=== PATIENT | female | born 1935 | race Caucasian/White ===

== ENCOUNTER 2017-01-15 19:37 | Inpatient (IN) | payer MEDICARE ==
[~2017-01-15] VITALS: Ht 160 cm; Wt 53.6 kg
[~2017-01-15 19:37] MED LIST: ACET325T9 PO; ALBU1.25 NEB; AMOX1TAB61 PO; ATOR40TA59 PO; CHOL10003 PO; DIAZ10TA PO; DICY10CA3 PO; DONE10TA61 PO; FEXO180T81 PO; FLUT16SP2 NS; GUAI100L12 PO; GUAI473L15 PO; LEVO137T3 PO; LEVO50TA5 PO; LEXAPRO10 MG PO; LORA10TA3 PO; MEMA10TA PO; MEMA28CA PO; MIRT45TA3 PO; OMEG500C PO; PANT40TA3 PO; POLY17PO5 PO; POTA20TA12 PO; PROP20TA PO; SENN-6 PO; SENN8.8S4 PO; SUCR1TAB35 PO; TROL177. TP; WARF1TAB74 PO; WARF2.5T83 PO; [UNRECOGNIZED DRUG - CODE] PO
[2017-01-15 20:51] LABS: BASO # 0.1 x10^3/uL (0.0-0.2); BASO % 1 % (0-3); EOS # 0.1 x10^3/uL (0.0-0.7); EOS % 2 % (0-3); HEMATOCRIT 34.2 % (36.0-47.0); HEMOGLOBIN 12.1 g/dL (12.0-15.5); LYMPH # 1.4 x10^3/uL (1.0-4.8); LYMPH % 21 % (24-48); MEAN CORPUSCULAR HEMOGLOBIN 33 pg (25-35); MEAN CORPUSCULAR HGB CONC 35 g/dL (31-37); MEAN CORPUSCULAR VOLUME 92 fL (79-100); MONO # 0.5 x10^3/uL (0.0-1.1); MONO % 8 % (0-9); NEUT # 4.6 x10^3uL (1.8-7.7); NEUT % 68 % (31-73); PLATELET COUNT 214 x10^3/uL (140-400); RED BLOOD COUNT 3.71 x10^6/uL (3.50-5.40); RED CELL DISTRIBUTION WIDTH 15.7 % (11.5-14.5); WHITE BLOOD COUNT 6.7 x10^3/uL (4.0-11.0)
[2017-01-15 21:01] LABS: ALBUMIN 3.1 g/dL (3.4-5.0); ALBUMIN/GLOBULIN RATIO 0.9 (1.0-1.7); CALCIUM 8.6 mg/dL (8.5-10.1); CREATININE 1.3 mg/dL (0.6-1.0); GFR 39.1; MAGNESIUM 1.8 mg/dL (1.8-2.4); TOTAL BILIRUBIN 0.6 mg/dL (0.2-1.0); TOTAL PROTEIN 6.6 g/dL (6.4-8.2)
[2017-01-15 21:03] LABS: POTASSIUM 2.3 mmol/L (3.5-5.1)
--- NOTE | 2017-01-15 21:03 | RAD ---
PQRS Compliance Statement: One or more of the following individualized dose reduction techniques were utilized for this examination: 1. Automated exposure control 2. Adjustment of the mA and/or kV according to patient size 3. Use of iterative reconstruction technique CT HEAD, MAXILLOFACIAL, AND CERVICAL SPINE WITHOUT CONTRAST History: AMS/TRAUMA, BRUISING ABOVE RIGHT EYE Comparison: None. Procedure: Axial images are obtained of the head from the skull base through the vertex without IV contrast. Noncontrast helical CT of the cervical spine was performed. Axial, sagittal, and coronal reconstructions were obtained. Helical CT imaging of the facial bones is performed without IV contrast. Findings: The ventricles and sulci are prominent, consistent with age-related cerebral atrophy. There is moderate periventricular white matter hypoattenuation. This is a nonspecific finding but is commonly due to chronic small vessel ischemic disease in a patient of this age. No mass-effect, midline shift, hemorrhage or obvious acute infarction is identified. Basilar cisterns are patent. Bone windows demonstrate no significant calvarial abnormality. There is right frontal scalp hematoma, mild to moderate. No acute facial bone fracture. Patient is edentulous. Mucosal thickening right maxillary sinus is moderate. Mastoid air cells are well aerated. There is mild motion artifact in the cervical spine degrading image quality. There is no evidence of acute fracture or acute malalignment of the cervical spine. The vertebral body height and alignment are maintained. There is disc space narrowing and degenerative endplate spurring. The facet joints are intact, mildly hypertrophic. Left carotid bulb calcification. Right lung apex is clear. Left lung not imaged. IMPRESSION: 1. No acute intracranial abnormality. Senescent changes. 2. There is mild to moderate right frontal scalp hematoma. 3. Limited exam due to motion artifact. No acute fracture of the cervical spine. 4. No acute facial bone fracture. Electronically signed by: Joe Bashir MD (01/15/2017 9:00 PM) [facility]
[2017-01-15] MEDS ORDERED: MENT118G TP (21:05)
[2017-01-15] MEDS ORDERED: LEXAPRO20 MG PO (21:05)
[2017-01-15] MEDS ORDERED: LISI-338 PO (21:05)
[2017-01-15] MEDS ORDERED: ATRO10DR SL (21:05)
[2017-01-15] MEDS ORDERED: MORP20SO PO (21:05)
[2017-01-15] MEDS ORDERED: LORA2ORA8 PO (21:05)
[2017-01-15] MEDS ORDERED: POLY15DR27 OU (21:05)
[2017-01-15] MEDS ORDERED: CARB15DR98 OU (21:05)
[2017-01-15] MEDS ORDERED: BUTA1TAB PO (21:05)
[2017-01-15] MEDS ORDERED: LEVO112T4 PO (21:05)
[2017-01-15] MEDS ORDERED: HALO0.5T PO ×2 (21:05)
[2017-01-15] MEDS ORDERED: ASPI325T8 PO (21:05)
[2017-01-15] MEDS ORDERED: POTASSIUM CHLORIDE 20 MEQ/15 ML ORAL LIQUID. PO ONE (22:30)
[2017-01-15] MEDS ORDERED: POTASSIUM CL 40MEQ IN D5W 1,000 ML IV ONE (22:30)
[2017-01-15] MEDS ORDERED: POTASSIUM CHLORIDE 20 MEQ/15 ML ORAL LIQUID. ONE (22:34)
[2017-01-15 22:54] LABS: BILIRUBIN,URINE NEG (NEG); CLARITY,URINE CLEAR; COLOR,URINE STRAW; GLUCOSE,URINE NEG (NEG); NITRITE,URINE NEG (NEG); UROBILINOGEN,URINE 1 mg/dL (0.2 mg/dL)
[2017-01-15 22:55] LABS: BACTERIA,URINE FEW /HPF (0-FEW); BARBITURATES NEG (NEG); BENZODIAZEPINES POS (NEG); CANNABINOIDS NEG (NEG); COCAINE NEG (NEG); METHADONE NEG (NEG); OPIATES POS (NEG); PHENCYCLIDINE NEG (NEG); SQUAMOUS EPITHELIAL CELL,UR MOD /LPF
[2017-01-15 22:56] LABS: AMPHETAMINE/METHAMPHETAMINE NEG (NEG)
[2017-01-15 22:58] LABS: HYALINE CASTS, URINE MOD /HPF
[2017-01-15] MEDS ORDERED: ACETAMINOPHEN 325 MG TABLET PO PRN (23:15)
[2017-01-15] MEDS ORDERED: MAGNESIUM SULFATE 1GM 100 ML IV ONE ×2 (23:20→23:30)
--- NOTE | 2017-01-15 23:40 | ED.ADGEN ---
Past History Past Medical History: A-Fib, CHF, High Cholesterol, Hypothyroid Past Surgical History: No Surgical History Alcohol Use: None Drug Use: None Adult General HPI HPI Patient is an 81-year-old woman, history of dementia, agitation, hypertension, hypothyroidism, atrial fibrillation, CHF, who presents to the emergency department via EMS her nursing facility with report of increased agitation, for medical screening for admission to the [facility] unit. Patient noted to have abrasions on her forehead and around her right eye, per report from nursing staff patient had been agitated and combative. Patient is previously receiving Haldol, currently, patient is at baseline mental status per report, she is alert, and awake, but not oriented, speaks in full sentences and is moving all extremities, but cannot be oriented. Patient is denying all complaints. She is cooperative with staff at this time. No anticoagulation per medication list. Review of Systems Review of Systems Constitutional: Denies fever or chills [] Eyes: Denies change in visual acuity, redness, or eye pain [] HENT: Denies nasal congestion or sore throat [] Respiratory: Denies cough or shortness of breath [] Cardiovascular: No additional information not addressed in HPI [] GI: Denies abdominal pain, nausea, vomiting, bloody stools or diarrhea [] : Denies dysuria or hematuria [] Musculoskeletal: Denies back pain or joint pain [] Integument: Denies rash or skin lesions [] Neurologic: Denies headache, focal weakness or sensory changes [] Endocrine: Denies polyuria or polydipsia [] Patient denies all complaints, but isn't limited historian due to severe dementia. She is at baseline mental status per report from nursing facility. Current Medications Current Medications Current Medications Medications (Trade) Dose Ordered Sig/Anthony Start Time Stop Time Status Last Admin Dose Admin Acetaminophen (Tylenol) 650 mg PRN Q4HRS PRN 01/15/17 23:15 01/16/17 23:14 Magnesium Sulfate/ Dextrose 100 ml @ As Directed STK-MED ONCE 01/15/17 23:20 01/15/17 23:21 DC Potassium Chloride/Dextrose 1,000 ml @ 75 mls/hr 1X ONCE 01/15/17 22:30 01/16/17 11:49 01/15/17 22:30 75 MLS/HR Potassium Chloride (KCl Oral Soln) 20 meq STK-MED ONCE 01/15/17 22:34 01/15/17 22:35 DC Allergies Allergies Allergies Coded Allergies Type Severity Reaction Last Updated Verified No Known Drug Allergies 11/27/13 No Physical Exam Physical Exam Constitutional: Well developed, well nourished, no acute distress, non-toxic appearance. [] HENT: Normocephalic, patient with contusions noted over the right forehead, ecchymosis surrounding the right orbit, no lacerations, patient is edentulous, no difficulty with bite test, no hemotympanum, no septal hematoma, bilateral external ears normal, oropharynx moist, no oral exudates, nose normal. [] Eyes: PERRLA, EOMI, conjunctiva normal, no discharge. Ecchymosis surrounding right stated, superficial.[] Neck: Normal range of motion, no tenderness, supple, no stridor. [] Cardiovascular:Heart rate regular rhythm, no murmur, S1, S2, no rubs or gallops. [] Lungs & Thorax: Bilateral breath sounds clear to auscultation, no wheezing, rhonchi, rales. No chest wall crepitus or tenderness.] Abdomen: Bowel sounds normal, soft, no tenderness, no masses, no pulsatile masses. [] Skin: Warm, dry, no erythema, no rash. [] Back: No tenderness, no CVA tenderness. [] Extremities: No tenderness, no cyanosis, no clubbing, ROM intact, no edema. Patient with contusions noted on both forearms, but no bony point tenderness or crepitus, patient moving extremities without difficulty and without discomfort, [] Neurologic: Alert and oriented X 3, normal motor function, normal sensory function, no focal deficits noted. [] Psychologic: Affect normal, judgement normal, mood normal. [] Current Patient Data Vital Signs Vital Signs Date Time Temp Pulse Resp B/P (MAP) Pulse Ox O2 Delivery O2 Flow Rate FiO2 01/15/17 22:46 97 22 145/62 (89) 98 Room Air 01/15/17 20:00 98.0 Lab Results Laboratory Tests Test 01/15/17 20:30 01/15/17 20:38 01/15/17 22:15 Prothrombin Time 11.4 SEC (9.4-11.4) Prothrombin Time INR 1.1 (0.9-1.1) PTT 25 SEC (23-33) White Blood Count 6.7 x10^3/uL (4.0-11.0) Red Blood Count 3.71 x10^6/uL (3.50-5.40) Hemoglobin 12.1 g/dL (12.0-15.5) Hematocrit 34.2 % (36.0-47.0) L Mean Corpuscular Volume 92 fL (79-100) Mean Corpuscular Hemoglobin 33 pg (25-35) Mean Corpuscular Hemoglobin Concent 35 g/dL (31-37) Red Cell Distribution Width 15.7 % (11.5-14.5) H Platelet Count 214 x10^3/uL (140-400) Neutrophils (%) (Auto) 68 % (31-73) Lymphocytes (%) (Auto) 21 % (24-48) L Monocytes (%) (Auto) 8 % (0-9) Eosinophils (%) (Auto) 2 % (0-3) Basophils (%) (Auto) 1 % (0-3) Neutrophils # (Auto) 4.6 x10^3uL (1.8-7.7) Lymphocytes # (Auto) 1.4 x10^3/uL (1.0-4.8) Monocytes # (Auto) 0.5 x10^3/uL (0.0-1.1) Eosinophils # (Auto) 0.1 x10^3/uL (0.0-0.7) Basophils # (Auto) 0.1 x10^3/uL (0.0-0.2) Sodium Level 146 mmol/L (136-145) H Potassium Level 2.3 mmol/L (3.5-5.1) *L Chloride Level 106 mmol/L (98-107) Carbon Dioxide Level 33 mmol/L (21-32) H Anion Gap 7 (6-14) Blood Urea Nitrogen 12 mg/dL (7-20) Creatinine 1.3 mg/dL (0.6-1.0) H Estimated GFR (Cockcroft-Gault) 39.1 BUN/Creatinine Ratio 9 (6-20) Glucose Level 82 mg/dL (70-99) Calcium Level 8.6 mg/dL (8.5-10.1) Magnesium Level 1.8 mg/dL (1.8-2.4) Total Bilirubin 0.6 mg/dL (0.2-1.0) Aspartate Amino Transferase (AST) 25 U/L (15-37) Alanine Aminotransferase (ALT) 19 U/L (14-59) Alkaline Phosphatase 132 U/L (46-116) H Total Protein 6.6 g/dL (6.4-8.2) Albumin 3.1 g/dL (3.4-5.0) L Albumin/Globulin Ratio 0.9 (1.0-1.7) L Urine Collection Type U cath Urine Color Straw Urine Clarity Clear Urine pH 5.5 Urine Specific [place] 1.025 Urine Protein 30 mg/dl (NEG-TRACE) Urine Glucose (UA) Neg mg/dL (NEG) Urine Ketones (Stick) 15 mg/dL (NEG) Urine Blood Neg (NEG) Urine Nitrite Neg (NEG) Urine Bilirubin Neg (NEG) Urine Urobilinogen Dipstick 1 mg/dL (0.2 mg/dL) Urine Leukocyte Esterase Neg (NEG) Urine RBC 1-2 /HPF (0-2) Urine WBC 1-4 /HPF (0-4) Urine Squamous Epithelial Cells Mod /LPF Urine Bacteria Few /HPF (0-FEW) Urine Hyaline Casts Mod /HPF Urine Mucus Mod /LPF Urine Opiates Screen Pos (NEG) Urine Methadone Screen Neg (NEG) Urine Barbiturates Neg (NEG) Urine Phencyclidine Screen Neg (NEG) Urine Amphetamine/Methamphetamine Neg (NEG) Urine Benzodiazepines Screen Pos (NEG) Urine Cocaine Screen Neg (NEG) Urine Cannabinoids Screen Neg (NEG) Urine Ethyl Alcohol Neg (NEG) EKG EKG EC: ECG is suboptimal, multiple attempts to obtain this ECG, noted to be in sinus rhythm with a heart rate of 69 beats/minute, significant baseline artifact is noted, QTc is prolonged at 535, [place] 198, QRS of 86, contour abnormality is noted in the inferior leads with Q waves noted, but no significant ST elevations or depressions identified, abnormal ECG, does not meet STEMI criteria, limited interpretation secondary to artifact and patient compliance. As interpreted by me.[] Radiology/Procedures Radiology/Procedures [][address] [address] IMAGING REPORT Signed PATIENT: TINY STARR ACCOUNT: [id number] : 1935 LOCATION: ER AGE: 81 SEX: F EXAM STATUS: REG ER ORD. PHYSICIAN: BRIAN KAY DO REASON: AMS/trauma PROCEDURE: CT CERVICAL SPINE WO CONTRAST PQRS Compliance Statement: One or more of the following individualized dose reduction techniques were utilized for this examination: 1. Automated exposure control 2. Adjustment of the mA and/or kV according to patient size 3. Use of iterative reconstruction technique CT HEAD, MAXILLOFACIAL, AND CERVICAL SPINE WITHOUT CONTRAST History: AMS/TRAUMA, BRUISING ABOVE RIGHT EYE Comparison: None. Procedure: Axial images are obtained of the head from the skull base through the vertex without IV contrast. Noncontrast helical CT of the cervical spine was performed. Axial, sagittal, and coronal reconstructions were obtained. Helical CT imaging of the facial bones is performed without IV contrast. Findings: The ventricles and sulci are prominent, consistent with age-related cerebral atrophy. There is moderate periventricular white matter hypoattenuation. This is a nonspecific finding but is commonly due to chronic small vessel ischemic disease in a patient of this age. No mass-effect, midline shift, hemorrhage or obvious acute infarction is identified. Basilar cisterns are patent. Bone windows demonstrate no significant calvarial abnormality. There is right frontal scalp hematoma, mild to moderate. No acute facial bone fracture. Patient is edentulous. Mucosal thickening right maxillary sinus is moderate. Mastoid air cells are well aerated. There is mild motion artifact in the cervical spine degrading image quality. There is no evidence of acute fracture or acute malalignment of the cervical spine. The vertebral body height and alignment are maintained. There is disc space narrowing and degenerative endplate spurring. The facet joints are intact, mildly hypertrophic. Left carotid bulb calcification. Right lung apex is clear. Left lung not imaged. IMPRESSION: 1. No acute intracranial abnormality. Senescent changes. 2. There is mild to moderate right frontal scalp hematoma. 3. Limited exam due to motion artifact. No acute fracture of the cervical spine. 4. No acute facial bone fracture. Electronically signed by: Joe Bashir MD (01/15/2017 9:00 PM) [facility] DICTATED AND SIGNED BY: JOE BASHIR MD DATE: 01/15/172051 CC: ANNA ANDRADE JR, MD; BRIAN KAY DO ~ Course & Med Decision Making Course & Med Decision Making Pertinent Labs and Imaging studies reviewed. (See chart for details) Due to patient's contusions and evidence of head injury, CT of the head and neck was obtained, did not reveal evidence of intercranial or bony abnormalities. Laboratory studies obtained, including a straight catheter urine. Patient noted to have potassium of 2.3, is on lisinopril, no other diuretics or other concerning medications identified where the review of medication list. Magnesium of 1.8. ECG reveals a prolonged QTc at 535, and Q waves in the inferior leads, no other maladies identified, limited secondary to patient compliance with examination. Patient did become agitated during straight catheterization, otherwise was cooperative with the ED staff. Patient initiated on 40 mg of oral potassium, and 40 mEq IV potassium at 75 an hour in a liter of normal saline. Evidence of mild dehydration. I did discuss findings as above with Dr. Pacheco, hospitalist on-call, patient was accepted to her service as a full admission to the medical telemetry floor, for continued repletion of potassium, with addition of 1 g magnesium, laboratory studies to be repeated in the morning, with plan for patient to be transferred to the [facility] when she is medically cleared. Transportation was arranged via EMS for transport to [facility]. Patient remained calm, cooperative, and comfortable during her ED course with vital signs within normal limits. Final Impression Final Impression [] Problems: Dragon Disclaimer Dragon Disclaimer This electronic medical record was generated, in whole or in part, using a voice recognition dictation system. Departure: Impression: Primary Impression: Senile dementia with delusional features Additional Impression: Hypokalemia Disposition: ADMITTED INPATIENT Admitting Physician: Melonie Pacheco Condition: IMPROVED BRIAN KAY DO Jan 15, 2017 23:40
--- NOTE | 2017-01-15 23:50 | NUR ---
ADMISSION: The patient, TINY STARR, 81 y/o, F admitted by GEOFFREY KELLY DO, was given written information regarding hospital policies, unit procedures and contact persons. Pt admitted to room 109 via [facility], accompanied by [facility] and nursing super. Pt assisted x3 to transfer from [facility] to bed. Pt has dementia and has difficulty following directions. A/O self only, highly confused. Pt presented to ED from [facility] for medical clearance to be admitted to [facility] for recent behaviors of: kicking nurse, throwing things, aggression, hallucinations. Potassium found found to be critically low at 2.3 and pt was admitted to medical floor for replenishment. PMH and home meds obtained from [facility] records as pt is a poor historian. Pt calm and cooperative with cares this evening. Toileted x1 assist, unsteady gait noted. Pt has difficulty utilizing walker. Pt returned to bed, alarm set. Pt noted to have significant goose egg and bruising to right eye from recent fall. Per NH, pt has had 8 falls recently. POC discussed, pt unable to V/U. Will reinforce. Call light within reach. Valuables were checked and logged. Left in room with patient.
--- NOTE | 2017-01-16 00:30 | EKG ---
[address] [address] Test Date: 2017-01-15 Test Time: 22:07:28 Pat Name: TINY STARR Department: Room: [facility] A Gender: F Leg Man: JANICE : 1935 Requested By: BRIAN KAY Order Number: [id number] Reading MD: Navin Alvarez MD Measurements Intervals Mack Rate: 69 P: 78 NJ: 198 QRS: -15 QRSD: 86 T: 28 QT: 498 QTc: 535 Interpretive Statements SINUS RHYTHM BASELINE ARTIFACT Electronically Signed On 01-19-2017 13:33:20 CDT by Navin Alvarez MD
[2017-01-16 02:42] VITALS: BP 174/87
[2017-01-16 05:31] VITALS: BP 148/87
[2017-01-16 07:29] LABS: BASO # 0.1 x10^3/uL (0.0-0.2); BASO % 2 % (0-3); EOS # 0.2 x10^3/uL (0.0-0.7); EOS % 4 % (0-3); HEMATOCRIT 36.3 % (36.0-47.0); LYMPH # 1.5 x10^3/uL (1.0-4.8); LYMPH % 26 % (24-48); MEAN CORPUSCULAR HEMOGLOBIN 32 pg (25-35); MEAN CORPUSCULAR HGB CONC 33 g/dL (31-37); MEAN CORPUSCULAR VOLUME 96 fL (79-100); MONO # 0.6 x10^3/uL (0.0-1.1); MONO % 10 % (0-9); NEUT # 3.3 x10^3uL (1.8-7.7); NEUT % 59 % (31-73); PLATELET COUNT 167 x10^3/uL (140-400); RED BLOOD COUNT 3.79 x10^6/uL (3.50-5.40); RED CELL DISTRIBUTION WIDTH 16.4 % (11.5-14.5); WHITE BLOOD COUNT 5.7 x10^3/uL (4.0-11.0)
[2017-01-16 07:33] LABS: CALCIUM 8.1 mg/dL (8.5-10.1)
[2017-01-16 07:39] LABS: POTASSIUM 2.9 mmol/L (3.5-5.1)
[2017-01-16] MEDS ORDERED: POTASSIUM CHLORIDE 20 MEQ TABLET.ER. PO ONE ×2 (08:30→12:08)
[2017-01-16 10:48] VITALS: BP 140/53
[2017-01-16] MEDS ORDERED: guaiFENesin 300 MG/15 ML LIQUID PO PRN (12:15)
[2017-01-16] MEDS ORDERED: ACETAMINOPHEN 325 MG TABLET PO PRN (12:15)
[2017-01-16] MEDS ORDERED: HALOPERIDOL 0.5 MG TABLET PO PRN (12:15)
[2017-01-16] MEDS ORDERED: SENNOSIDES/DOCUSATE 8.6/50MG TABLET. PO SCH (13:00)
[2017-01-16] MEDS ORDERED: POLYETHYLENE GLYCOL 3350 17 GM PACKET. PO SCH (13:00)
[2017-01-16] MEDS ORDERED: CITALOPRAM 20 MG TABLET. PO SCH (13:00)
[2017-01-16] MEDS ORDERED: FLUTICASONE 50MCG/NASAL SPRAY 16GM BOTTLE. NS SCH (13:00)
[2017-01-16] MEDS ORDERED: LISINOPRIL 5 MG TABLET. PO SCH (13:00)
[2017-01-16] MEDS ORDERED: METHYL SALICYLATE/MENTHOL TOPICAL OINTMENT 29GM TUBE. TP PRN (13:00)
[2017-01-16] MEDS ORDERED: POLYVINYL ALCOHOL 1.4% OPHTH SOLUTION 15ML BOTTLE. OU SCH (13:00)
[2017-01-16] MEDS ORDERED: ASPIRIN 325 MG TABLET PO SCH (13:00)
[2017-01-16] MEDS ORDERED: LORazepam INTENSOL 2 MG/ML BOTTLE PO PRN (13:00)
[2017-01-16] MEDS ORDERED: PANTOPRAZOLE 40 MG TABLET. PO SCH (13:00)
[2017-01-16] MEDS ORDERED: HALOPERIDOL 0.5 MG TABLET PO SCH (13:00)
[2017-01-16] MEDS ORDERED: MORPHINE SULFATE 20 MG/ML CONC SOLUTION. SL PRN (13:15)
--- NOTE | 2017-01-16 13:24 | HP ---
ADMIT DATE: 01/15/2017 REASON FOR ADMISSION: Hypokalemia. HISTORY OF PRESENT ILLNESS: This is an 81-year-old female who came from home and was slated to be admitted up to the [facility] for increasingly aggressiveness, kicking nurses, throwing things and hallucinating. She had been discontinued from hospice to be admitted to the [facility]. However, on the workup in the Emergency Room, her potassium was only 2.3 and she was somewhat dehydrated and so was admitted to the medical floor. ALLERGIES: None. MEDICATIONS: Reviewed and the patient is on multiple hospice medications which were given quite frequently without much help. PAST MEDICAL HISTORY: Recently, the patient has had multiple falls including hitting her head, chronic diastolic heart failure, has a history of urinary tract infection, treated with Cipro, hypertension, dementia, AFib, macular degeneration, GERD. The patient's last fall was 01/09/2017 when she hit her head. She was found on the floor on 10:30 but it was not felt that she had fallen. SOCIAL HISTORY: She resides at . Her daughter is her power of employment law attorney. She is a former smoker, unknown alcohol. REVIEW OF SYSTEMS: The patient has trouble getting out what she wants having trouble communicating this morning. She does not have any particular complaints I can get in a lucid conversation. PHYSICAL EXAMINATION: VITAL SIGNS: Blood pressure 140/53, temperature 97.4, pulse 85, respirations 20, pulse ox is 94% on room air. Height 63 inches, weight 118.12 pounds. GENERAL: Frail, elderly 81-year-old in no acute distress, is sitting calmly in bed, notable bruising on her face including a large "egg" on her forehead. HEENT: Her eyes were clear. Nose was patent. Throat was clear. NECK: Supple. LUNGS: Clear. CARDIOVASCULAR: Regular rhythm and rate. ABDOMEN: Soft, nontender. EXTREMITIES: Without edema. MUSCULOSKELETAL: Very unsteady on her feet. MENTAL STATE: Confused. Cranial nerves, unable to assess. LABORATORY DATA: CBC is normal. Chemistry: Initial potassium 2.3, now 2.9 this morning after potassium replacement. Albumin is 3.1, magnesium was 1.8. Urinalysis is a contaminated specimen, but specific gravity is 1.025. Drug screen is positive for opiates and benzodiazepines consistent with her hospice medications. ASSESSMENT: 1. Severe hypokalemia. 2. Dehydration, now improved with IV fluids. 3. Chronic diastolic heart failure. 4. Recent urinary tract infection. 5. Multiple falls with a forehead contusion. 6. Hypertension, medications were discontinued at the assisted living. 7. Atrial fibrillation. 8. Macular degeneration. 9. 9. Moderate protein-calorie malnutrition. PLAN: Correct her potassium. Dehydration has been corrected and then transfer upstairs. Would be nutritional supplements. GEOFFREY KELLY DO DR: ROSE/doug JOB#: [id number] / [id number]
[2017-01-16] MEDS ORDERED: DICYCLOMINE HCL 10 MG CAPSULE PO SCH (14:00)
[2017-01-16 15:16] VITALS: BP 139/87
[2017-01-16] MEDS ORDERED: CARBOXYMETHYLCELLULOSE SODIUM OU SCH (21:00)
[2017-01-17] MEDS ORDERED: LEVOTHYROXINE 112 MCG TABLET PO SCH (07:00)
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
== END 2017-01-16 17:28 | DRG 641 ==
LOC: ER 19:37 → 1 SOUTH 22:31
PROVIDERS: ADMIT Family Medicine; ATTEND Family Medicine
DX: E87.6 Hypokalemia (principal); E86.0 Dehydration; E44.0 Moderate protein-calorie malnutrition; I48.91 Unspecified atrial fibrillation; I11.0 Hypertensive heart disease with heart failure; F03.90 Unspecified dementia, unspecified severity, without behavioral disturbance, psychotic disturbance, mood disturbance, and anxiety; I50.32 Chronic diastolic (congestive) heart failure; E03.9 Hypothyroidism, unspecified; W18.39XA Other fall on same level, initial encounter; F41.9 Anxiety disorder, unspecified; Z68.20 Body mass index [BMI] 20.0-20.9, adult; H35.30 Unspecified macular degeneration; K21.9 Gastro-esophageal reflux disease without esophagitis; R29.6 Repeated falls; S00.03XA Contusion of scalp, initial encounter; Y93.89 Activity, other specified; Y92.89 Other specified places as the place of occurrence of the external cause; Y99.8 Other external cause status; Z79.82 Long term (current) use of aspirin; Z79.899 Other long term (current) drug therapy; Z87.440 Personal history of urinary (tract) infections; Z87.891 Personal history of nicotine dependence
CPT/HCPCS: 36415; 70450; 70486; 72125; 80048; 80053; 80307; 81001; 82306; 82607; 83540; 83550; 83735; 84132; 84443; 85025; 85610; 85730; 87641; 93005; 96365; 96368; J3475; P9612; 99285-25; G0479

== ENCOUNTER 2017-01-16 17:04 | Inpatient (IN) | payer MEDICARE ==
[~2017-01-16] VITALS: Ht 160 cm; Wt 51.7 kg
[~2017-01-16 17:04] MED LIST changes: +ASPI325T8 PO; +ATRO10DR SL; +BUTA1TAB PO; +CARB15DR98 OU; +HALO0.5T PO; +LEVO112T4 PO; +LEXAPRO20 MG PO; +LISI-338 PO; +LORA2ORA8 PO; +MENT118G TP; +MORP20SO PO; +POLY15DR27 OU
[2017-01-16] MEDS ORDERED: MAGNESIUM HYDROXIDE 2,400 MG/30 ML ORAL.SUSP. PO PRN (17:15)
[2017-01-16] MEDS ORDERED: MAG HYDROX/AL HYDROX/SIMETH 30 ML ORAL.SUSP PO PRN (17:15)
[2017-01-16] MEDS ORDERED: ACETAMINOPHEN 325 MG TABLET PO PRN (17:15)
[2017-01-16] MEDS ORDERED: METHYL SALICYLATE/MENTHOL TOPICAL OINTMENT 29GM TUBE. TP PRN ×2 (17:15→18:00)
[2017-01-16] MEDS ORDERED: NACL 0.9% SL PRN (17:30)
[2017-01-16] MEDS ORDERED: ATROPINE SULFATE SL PRN (17:30)
[2017-01-16] MEDS ORDERED: NON FORMULARY ITEM (Menthol (Biofreeze) 1 APP) TP PRN (17:30)
[2017-01-16] MEDS ORDERED: guaiFENesin 300 MG/15 ML LIQUID PO PRN (17:30)
[2017-01-16] MEDS ORDERED: MORPHINE SULFATE 10 MG/5 ML ORAL SOLUTION. PO PRN (18:00)
[2017-01-16] MEDS: POLYVINYL ALCOHOL 1.4% OPHTH SOLUTION 15ML BOTTLE. OU SCH (20:37)
[2017-01-16] MEDS: diazePAM 2 MG TABLET PO SCH ×3 (20:37→22:31)
[2017-01-16] MEDS: HALOPERIDOL 0.5 MG TABLET PO SCH ×3 (20:38→22:32)
[2017-01-16] MEDS: DICYCLOMINE HCL 10 MG CAPSULE PO SCH ×3 (20:38→22:31)
[2017-01-16] MEDS: SENNOSIDES/DOCUSATE 8.6/50MG TABLET. PO SCH ×3 (20:38→22:31)
--- NOTE | 2017-01-16 20:47 | PDOC ---
Exam Yossi Demential Exam: Yossi Note: Please also refer to the separate dictated note~for this date of service dictated separately.~Patient seen individually. Discussed the patient with Nursing staff reviewed the chart.~Reviewed interim history and current functioning. Reviewed vital signs,~Labs/ Radiology~and current medications noted below. Continue current treatment with the changes noted in the dictated addendum note Assessment: I&O Intake and Output 01/17/17 07:00 Intake Total 0 ml Balance 0 ml Intake Oral 0 ml Labs: Laboratory Tests Test 01/16/17 15:25 Magnesium Level 1.9 mg/dL (1.8-2.4) Current Medications: Meds: Current Medications Acetaminophen (Tylenol) 650 mg PRN Q6HRS PRN PO PAIN / TEMP; Start 01/16/17 at 17:15; Status UNV Multi-Ingredient Ointment (Analgesic [place]) 1 karime PRN QID PRN TP MUSCLE PAIN; Start 01/16/17 at 17:15; Status Cancel Al Hydroxide/Mg Hydroxide (Mylanta Plus Xs) 15 ml PRN AFTMEALHC PRN PO DYSPEPSIA; Start 01/16/17 at 17:15 Magnesium Hydroxide (Milk Of Magnesia) 2,400 mg PRN QHS PRN PO CONSTIPATION; Start 01/16/17 at 17:15 Acetaminophen (Tylenol) 650 mg PRN Q6HRS PRN PO PAIN / TEMP; Start 01/16/17 at 17:30 Aspirin (Lana Aspirin) 325 mg DAILY PO ; Start 01/17/17 at 09:00 Dicyclomine HCl (Bentyl) 10 mg TID PO Last administered on 01/16/17t 20:38; Start 01/16/17 at 21:00 Fluticasone Propionate (Flonase) 1 spray DAILY NS ; Start 01/17/17 at 09:00 Guaifenesin (Robitussin) 100 mg PRN Q4HRS PRN PO COUGH; Start 01/16/17 at 17:30 Levothyroxine Sodium (Synthroid) 112 mcg DAILY07 PO ; Start 01/17/17 at 07:00 Lisinopril (Prinivil) 5 mg DAILY PO ; Start 01/17/17 at 09:00 Pantoprazole Sodium (Protonix) 40 mg DAILY PO ; Start 01/17/17 at 09:00 Polyethylene Glycol (miraLAX) 17 gm DAILY PO ; Start 01/17/17 at 09:00 Artificial Tears (Artificial Tears) 1 drop QID OU ; Start 01/16/17 at 21:00 Senna/Docusate Sodium (Senna Plus) 1 tab BID PO Last administered on 01/16/17 20:38; Start 01/16/17 at 21:00 Sucralfate (Carafate) 1 gm BIDBFRMEAL PO ; Start 01/17/17 at 07:30 Non-Formulary Medication 3 drop PRN Q1HR PRN SL SECRETIONS; Start 01/16/17 at 17:30; Status UNV Non-Formulary Medication 1 drop BID OU ; Start 01/16/17 at 21:00; Status UNV Non-Formulary Medication 1 karime PRN QID PRN TP MUSCLE PAIN; Start 01/16/17 at 17 :30; Status UNV Morphine Sulfate (Morphine Oral Solution) 5 mg PRN Q4HRS PRN PO MODERATE PAIN; Start 01/16/17 at 18:00 Haloperidol (Haldol) 0.25 mg BID PO Last administered on 01/16/17 20:38; Start 01/16/17 at 21:00 Haloperidol (Haldol) 0.5 mg PRN Q6HRS PRN PO ANXIETY / AGITATION; Start at 17:45 Lorazepam (Ativan Intensol) 1 mg PRN Q4HRS PRN PO ANXIETY / AGITATION; Start 01/16/17 at 17:45 Diazepam (Valium) 10 mg HS PO Last administered on 01/16/17 20:37; Start 01/16 at 21:00 Escitalopram Oxalate (Lexapro) 20 mg DAILY PO ; Start 01/17/17 at 09:00 Multi-Ingredient Ointment (Analgesic [place]) 1 karime PRN QID PRN TP MUSCLE PAIN; Start 01/16/17 at 18:00 Active Scripts Active Reported Morphine Sulfate 20 Mg/5 Ml Solution 5 Mg PO PRN Q4HRS PRN Haloperidol 0.5 Mg Tablet 0.25 Mg PO BID Haloperidol 0.5 Mg Tablet 0.5 Mg PO PRN Q6HRS PRN Lisinopril 5 Mg Tablet 5 Mg PO DAILY Lorazepam Intensol (Lorazepam) 2 Mg/1 Ml Oral.conc 1 Mg PO PRN Q4HRS PRN Atropine 0.01%-Ns Eye Drops (Atropine Sulfate in 0.9% NaCl) 10 Ml Drops 3 Drop SL PRN Q1HR PRN Biofreeze (Menthol) 118 Ml Gel..ml. 1 Karime TP PRN QID PRN Artificial Tears (Polyvinyl Alcohol) 15 Ml Drops 1 Drop OU QID Refresh Tears (Carboxymethylcellulose Sodium) 15 Ml Drops 1 Drop OU BID Aspirin 325 Mg Tablet 325 Mg PO DAILY Levothyroxine Sodium 112 Mcg Tablet 112 Mcg PO DAILY07 Lexapro (Escitalopram Oxalate) 20 Mg Tablet 20 Mg PO DAILY Guaifenesin 100 Mg/5 Ml Liquid 100 Mg PO PRN Q4HRS PRN Protonix (Pantoprazole Sodium) 40 Mg Tablet.dr 40 Mg PO DAILY Senna S Tablet (Sennosides/Docusate Sodium) 1 Each Tablet 1 Tab PO BID Tylenol (Acetaminophen) 325 Mg Tablet 650 Mg PO PRN Q6HRS PRN Dicyclomine Hcl 10 Mg Capsule 10 Mg PO TID Valium (Diazepam) 10 Mg Tablet 10 Mg PO QHS Carafate (Sucralfate) 1 Gm Tablet 1 Gm PO BID Flonase (Fluticasone Propionate) 16 Gm [place].susp 1 Spr NS DAILY Miralax (Polyethylene Glycol 3350) 17 Gm Powd.pack 17 Gm PO DAILY Diagnosis: Problems: (1) Dementia, vascular, with delusions (2) Altered mental state (3) Anxiety disorder (4) Impulse control disorder (5) Alzheimer's dementia ROSMERY CRUZ MD Jan 16, 2017 20:46
[2017-01-16] MEDS ORDERED: CARBOXYMETHYLCELLULOSE SODIUM OU SCH (21:00)
[2017-01-16 22:31] VITALS: BP 181/64
[2017-01-16 23:35] VITALS: BP 150/88
[2017-01-17] MEDS: LORazepam INTENSOL 2 MG/ML BOTTLE PO PRN (00:41)
[2017-01-17] MEDS: LEVOTHYROXINE 112 MCG TABLET PO SCH (05:45)
[2017-01-17 06:11] VITALS: BP 162/94
[2017-01-17 06:28] VITALS: BP 145/73
[2017-01-17] MEDS: HALOPERIDOL 0.5 MG TABLET PO SCH ×2 (08:59→20:30)
[2017-01-17] MEDS: DICYCLOMINE HCL 10 MG CAPSULE PO SCH ×3 (08:59→20:32)
[2017-01-17] MEDS: SENNOSIDES/DOCUSATE 8.6/50MG TABLET. PO SCH ×2 (08:59→20:30)
[2017-01-17] MEDS ORDERED: ESCITALOPRAM 20 MG TABLET. PO SCH (09:00)
[2017-01-17] MEDS: PANTOPRAZOLE 40 MG TABLET. PO SCH (09:05)
[2017-01-17] MEDS: FLUTICASONE 50MCG/NASAL SPRAY 16GM BOTTLE. NS SCH (09:05)
[2017-01-17] MEDS: LISINOPRIL 5 MG TABLET. PO SCH (09:05)
[2017-01-17] MEDS: POLYVINYL ALCOHOL 1.4% OPHTH SOLUTION 15ML BOTTLE. OU SCH ×4 (09:05→20:37)
[2017-01-17] MEDS: POLYETHYLENE GLYCOL 3350 17 GM PACKET. PO SCH (09:05)
[2017-01-17] MEDS: SUCRALFATE 1 GM TABLET. PO SCH ×2 (09:06→16:24)
[2017-01-17] MEDS: ASPIRIN 325 MG TABLET PO SCH (09:06)
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
[2017-01-17 14:08] LABS: THYROID STIM HORMONE (TSH) 0.989 uIU/mL (0.358-3.740)
[2017-01-17 16:20] VITALS: BP 145/87
--- NOTE | 2017-01-17 18:42 | HP ---
ADMIT DATE: 01/16/2017 HISTORY OF PRESENT ILLNESS: The patient is an 81-year-old female, who has had a brief stay on 1 for hypokalemia and then was admitted [facility] to [facility]. She had a complete history and physical of which there are no changes. Please refer to previous history and physical from 2 days ago and discharge summary from 2 days ago. GEOFFREY KELLY DO DR: ROSE/doug JOB#: [id number] / [id number]
[2017-01-17 19:08] LABS: T3 TOTAL 94 ng/dL (71-180); THYROXINE 11.1 ug/dL (4.5-12.0)
[2017-01-17] MEDS: diazePAM 5 MG TABLET PO SCH (20:35)
--- NOTE | 2017-01-17 20:43 | PDOC ---
Exam Yossi Demential Exam: Yossi Note: Please also refer to the separate dictated note~for this date of service dictated separately.~Patient seen individually. Discussed the patient with Nursing staff reviewed the chart.~Reviewed interim history and current functioning. Reviewed vital signs,~Labs/ Radiology~and current medications noted below. Continue current treatment with the changes noted in the dictated addendum note Assessment: Vital Signs: Vital Signs Date Time Temp Pulse Resp B/P (MAP) Pulse Ox O2 Delivery O2 Flow Rate FiO2 01/17/17 16:20 98.2 69 18 145/87 (106) 92 Room Air I&O Intake and Output 01/18/17 07:00 Intake Total 960 ml Balance 960 ml Intake Oral 960 ml Current Medications: Meds: Current Medications Acetaminophen (Tylenol) 650 mg PRN Q6HRS PRN PO PAIN / TEMP; Start 01/16/17 at 17:15; Status UNV Multi-Ingredient Ointment (Analgesic [place]) 1 karime PRN QID PRN TP MUSCLE PAIN; Start 01/16/17 at 17:15; Status Cancel Al Hydroxide/Mg Hydroxide (Mylanta Plus Xs) 15 ml PRN AFTMEALHC PRN PO DYSPEPSIA; Start 01/16/17 at 17:15 Magnesium Hydroxide (Milk Of Magnesia) 2,400 mg PRN QHS PRN PO CONSTIPATION; Start 01/16/17 at 17:15 Acetaminophen (Tylenol) 650 mg PRN Q6HRS PRN PO PAIN / TEMP; Start 01/16/17 at 17:30 Aspirin (Lana Aspirin) 325 mg DAILY PO Last administered on 01/17/17 09:06; Start 01/17/17 at 09:00 Dicyclomine HCl (Bentyl) 10 mg TID PO Last administered on 01/17/17 20:32; Start 01/16/17 at 21:00 Fluticasone Propionate (Flonase) 1 spray DAILY NS Last administered on 09:05; Start 01/17/17 at 09:00 Guaifenesin (Robitussin) 100 mg PRN Q4HRS PRN PO COUGH; Start 01/16/17 at 17:30 Levothyroxine Sodium (Synthroid) 112 mcg DAILY07 PO Last administered on 05:45; Start 01/17/17 at 07:00 Lisinopril (Prinivil) 5 mg DAILY PO Last administered on 01/17/17 09:05; Start 01/17/17 at 09:00 Pantoprazole Sodium (Protonix) 40 mg DAILY PO Last administered on 01/17/17 09 :05; Start 01/17/17 at 09:00 Polyethylene Glycol (miraLAX) 17 gm DAILY PO Last administered on 01/17/17 09: 05; Start 01/17/17 at 09:00 Artificial Tears (Artificial Tears) 1 drop QID OU Last administered on 20:37; Start 01/16/17 at 21:00 Senna/Docusate Sodium (Senna Plus) 1 tab BID PO Last administered on 01/17/17 20:30; Start 01/16/17 at 21:00 Sucralfate (Carafate) 1 gm BIDBFRMEAL PO Last administered on 01/17/17 16:24; Start 01/17/17 at 07:30 Non-Formulary Medication 3 drop PRN Q1HR PRN SL SECRETIONS; Start 01/16/17 at 17:30; Status UNV Non-Formulary Medication 1 drop BID OU ; Start 01/16/17 at 21:00; Status UNV Non-Formulary Medication 1 karime PRN QID PRN TP MUSCLE PAIN; Start 01/16/17 at 17 :30; Status UNV Morphine Sulfate (Morphine Oral Solution) 5 mg PRN Q4HRS PRN PO MODERATE PAIN; Start 01/16/17 at 18:00 Haloperidol (Haldol) 0.25 mg BID PO Last administered on 01/17/17 20:30; Start 01/16/17 at 21:00 Haloperidol (Haldol) 0.5 mg PRN Q6HRS PRN PO ANXIETY / AGITATION; Start at 17:45 Lorazepam (Ativan Intensol) 1 mg PRN Q4HRS PRN PO ANXIETY / AGITATION Last administered on 01/17/17 00:41; Start 01/16/17 at 17:45 Diazepam (Valium) 10 mg HS PO Last administered on 01/16/17 22:31; Start 01/16 at 21:00; Stop 01/17/17 at 16:24; Status DC Escitalopram Oxalate (Lexapro) 20 mg DAILY PO Last administered on 01/17/17 09 :06; Start 01/17/17 at 09:00; Stop 01/17/17 at 19:09; Status DC Multi-Ingredient Ointment (Analgesic [place]) 1 karime PRN QID PRN TP MUSCLE PAIN; Start 01/16/17 at 18:00 Diazepam (Valium) 10 mg QHS PO Last administered on 01/17/17 20:35; Start 01/17/17 at 21:00 Sertraline HCl (Zoloft) 50 mg DAILY PO ; Start 01/18/17 at 09:00 Active Scripts Active Reported Morphine Sulfate 20 Mg/5 Ml Solution 5 Mg PO PRN Q4HRS PRN Haloperidol 0.5 Mg Tablet 0.25 Mg PO BID Haloperidol 0.5 Mg Tablet 0.5 Mg PO PRN Q6HRS PRN Lisinopril 5 Mg Tablet 5 Mg PO DAILY Lorazepam Intensol (Lorazepam) 2 Mg/1 Ml Oral.conc 1 Mg PO PRN Q4HRS PRN Atropine 0.01%-Ns Eye Drops (Atropine Sulfate in 0.9% NaCl) 10 Ml Drops 3 Drop SL PRN Q1HR PRN Biofreeze (Menthol) 118 Ml Gel..ml. 1 Karime TP PRN QID PRN Artificial Tears (Polyvinyl Alcohol) 15 Ml Drops 1 Drop OU QID Refresh Tears (Carboxymethylcellulose Sodium) 15 Ml Drops 1 Drop OU BID Aspirin 325 Mg Tablet 325 Mg PO DAILY Levothyroxine Sodium 112 Mcg Tablet 112 Mcg PO DAILY07 Lexapro (Escitalopram Oxalate) 20 Mg Tablet 20 Mg PO DAILY Guaifenesin 100 Mg/5 Ml Liquid 100 Mg PO PRN Q4HRS PRN Protonix (Pantoprazole Sodium) 40 Mg Tablet.dr 40 Mg PO DAILY Senna S Tablet (Sennosides/Docusate Sodium) 1 Each Tablet 1 Tab PO BID Tylenol (Acetaminophen) 325 Mg Tablet 650 Mg PO PRN Q6HRS PRN Dicyclomine Hcl 10 Mg Capsule 10 Mg PO TID Valium (Diazepam) 10 Mg Tablet 10 Mg PO QHS Carafate (Sucralfate) 1 Gm Tablet 1 Gm PO BID Flonase (Fluticasone Propionate) 16 Gm [place].susp 1 Spr NS DAILY Miralax (Polyethylene Glycol 3350) 17 Gm Powd.pack 17 Gm PO DAILY Diagnosis: Problems: (1) Dementia, vascular, with delusions (2) Altered mental state (3) Anxiety disorder (4) Impulse control disorder (5) Alzheimer's dementia ROSMERY CRUZ MD Jan 17, 2017 20:42
[2017-01-18 06:09] VITALS: BP 142/71
[2017-01-18] MEDS: LEVOTHYROXINE 112 MCG TABLET PO SCH (06:24)
--- NOTE | 2017-01-18 10:59 | EKG ---
[address] [address] Test Date: 2017-01-18 Test Time: 10:55:12 Pat Name: TINY STARR Department: Room: [address] [place] [address] Gender: F Felt Hat Pouncing Operator Hand: : 1935 Requested By: ROSMERY CRUZ Order Number: [id number] Reading MD: Navin Alvarez MD Measurements Intervals [place] Rate: 68 P: OK: QRS: -14 QRSD: 80 T: 4 QT: 358 QTc: 385 Interpretive Statements SINUS RHYTHM PVC Electronically Signed On 01-19-2017 13:54:40 CDT by Navin Alvarez MD
[2017-01-18] MEDS: ASPIRIN 325 MG TABLET PO SCH (11:08)
[2017-01-18] MEDS: LISINOPRIL 5 MG TABLET. PO SCH (11:08)
[2017-01-18] MEDS: SUCRALFATE 1 GM TABLET. PO SCH ×2 (11:08→15:13)
[2017-01-18] MEDS: SENNOSIDES/DOCUSATE 8.6/50MG TABLET. PO SCH ×2 (11:08→19:21)
[2017-01-18] MEDS: DICYCLOMINE HCL 10 MG CAPSULE PO SCH ×3 (11:09→19:21)
[2017-01-18] MEDS: PANTOPRAZOLE 40 MG TABLET. PO SCH (11:09)
[2017-01-18] MEDS: POLYETHYLENE GLYCOL 3350 17 GM PACKET. PO SCH (11:09)
[2017-01-18] MEDS: HALOPERIDOL 0.5 MG TABLET PO SCH ×2 (11:09→19:21)
[2017-01-18] MEDS: FLUTICASONE 50MCG/NASAL SPRAY 16GM BOTTLE. NS SCH (11:14)
[2017-01-18] MEDS: SERTRALINE 50 MG TABLET. PO SCH (11:14)
[2017-01-18] MEDS: POLYVINYL ALCOHOL 1.4% OPHTH SOLUTION 15ML BOTTLE. OU SCH ×4 (11:14→19:24)
[2017-01-18 16:07] VITALS: BP 167/80
[2017-01-18] MEDS: diazePAM 5 MG TABLET PO SCH (19:21)
--- NOTE | 2017-01-18 20:52 | PDOC ---
Exam Yossi Demential Exam: Yossi Note: Please also refer to the separate dictated note~for this date of service dictated separately.~Patient seen individually. Discussed the patient with Nursing staff reviewed the chart.~Reviewed interim history and current functioning. Reviewed vital signs,~Labs/ Radiology~and current medications noted below. Continue current treatment with the changes noted in the dictated addendum note Assessment: Vital Signs: Vital Signs Date Time Temp Pulse Resp B/P (MAP) Pulse Ox O2 Delivery O2 Flow Rate FiO2 01/18/17 16:07 97.5 71 18 167/80 (109) 97 01/17/17 16:20 Room Air I&O Intake and Output 01/19/17 07:00 Intake Total 600 ml Balance 600 ml Intake Oral 600 ml # Bowel Movements 1 Current Medications: Meds: Current Medications Acetaminophen (Tylenol) 650 mg PRN Q6HRS PRN PO PAIN / TEMP; Start 01/16/17 at 17:15; Status UNV Multi-Ingredient Ointment (Analgesic [place]) 1 karime PRN QID PRN TP MUSCLE PAIN; Start 01/16/17 at 17:15; Status Cancel Al Hydroxide/Mg Hydroxide (Mylanta Plus Xs) 15 ml PRN AFTMEALHC PRN PO DYSPEPSIA; Start 01/16/17 at 17:15 Magnesium Hydroxide (Milk Of Magnesia) 2,400 mg PRN QHS PRN PO CONSTIPATION; Start 01/16/17 at 17:15 Acetaminophen (Tylenol) 650 mg PRN Q6HRS PRN PO PAIN / TEMP; Start 01/16/17 at 17:30 Aspirin (Lana Aspirin) 325 mg DAILY PO Last administered on 01/18/17 11:08; Start 01/17/17 at 09:00 Dicyclomine HCl (Bentyl) 10 mg TID PO Last administered on 01/18/17 19:21; Start 01/16/17 at 21:00 Fluticasone Propionate (Flonase) 1 spray DAILY NS Last administered on 11:14; Start 01/17/17 at 09:00 Guaifenesin (Robitussin) 100 mg PRN Q4HRS PRN PO COUGH; Start 01/16/17 at 17:30 Levothyroxine Sodium (Synthroid) 112 mcg DAILY07 PO Last administered on 06:24; Start 01/17/17 at 07:00 Lisinopril (Prinivil) 5 mg DAILY PO Last administered on 01/18/17 11:08; Start 01/17/17 at 09:00 Pantoprazole Sodium (Protonix) 40 mg DAILY PO Last administered on 01/18/17 11 :09; Start 01/17/17 at 09:00 Polyethylene Glycol (miraLAX) 17 gm DAILY PO Last administered on 01/18/17 11: 09; Start 01/17/17 at 09:00 Artificial Tears (Artificial Tears) 1 drop QID OU Last administered on 19:24; Start 01/16/17 at 21:00 Senna/Docusate Sodium (Senna Plus) 1 tab BID PO Last administered on 01/18/17 19:21; Start 01/16/17 at 21:00 Sucralfate (Carafate) 1 gm BIDBFRMEAL PO Last administered on 01/18/17 15:13; Start 01/17/17 at 07:30 Non-Formulary Medication 3 drop PRN Q1HR PRN SL SECRETIONS; Start 01/16/17 at 17:30; Status UNV Non-Formulary Medication 1 drop BID OU ; Start 01/16/17 at 21:00; Status UNV Non-Formulary Medication 1 karime PRN QID PRN TP MUSCLE PAIN; Start 01/16/17 at 17 :30; Status UNV Morphine Sulfate (Morphine Oral Solution) 5 mg PRN Q4HRS PRN PO MODERATE PAIN; Start 01/16/17 at 18:00 Haloperidol (Haldol) 0.25 mg BID PO Last administered on 01/18/17 19:21; Start 01/16/17 at 21:00 Haloperidol (Haldol) 0.5 mg PRN Q6HRS PRN PO ANXIETY / AGITATION; Start at 17:45 Lorazepam (Ativan Intensol) 1 mg PRN Q4HRS PRN PO ANXIETY / AGITATION Last administered on 01/17/17 00:41; Start 01/16/17 at 17:45 Diazepam (Valium) 10 mg HS PO Last administered on 01/16/17 22:31; Start 01/16 at 21:00; Stop 01/17/17 at 16:24; Status DC Escitalopram Oxalate (Lexapro) 20 mg DAILY PO Last administered on 01/17/17 09 :06; Start 01/17/17 at 09:00; Stop 01/17/17 at 19:09; Status DC Multi-Ingredient Ointment (Analgesic [place]) 1 karime PRN QID PRN TP MUSCLE PAIN; Start 01/16/17 at 18:00 Diazepam (Valium) 10 mg QHS PO Last administered on 01/18/17 19:21; Start 01/17/17 at 21:00 Sertraline HCl (Zoloft) 50 mg DAILY PO Last administered on 01/18/17 11:14; Start 01/18/17 at 09:00 Buspirone HCl (Buspar) 5 mg BID92 PO ; Start 01/19/17 at 09:00 Active Scripts Active Reported Morphine Sulfate 20 Mg/5 Ml Solution 5 Mg PO PRN Q4HRS PRN Haloperidol 0.5 Mg Tablet 0.25 Mg PO BID Haloperidol 0.5 Mg Tablet 0.5 Mg PO PRN Q6HRS PRN Lisinopril 5 Mg Tablet 5 Mg PO DAILY Lorazepam Intensol (Lorazepam) 2 Mg/1 Ml Oral.conc 1 Mg PO PRN Q4HRS PRN Atropine 0.01%-Ns Eye Drops (Atropine Sulfate in 0.9% NaCl) 10 Ml Drops 3 Drop SL PRN Q1HR PRN Biofreeze (Menthol) 118 Ml Gel..ml. 1 Karime TP PRN QID PRN Artificial Tears (Polyvinyl Alcohol) 15 Ml Drops 1 Drop OU QID Refresh Tears (Carboxymethylcellulose Sodium) 15 Ml Drops 1 Drop OU BID Aspirin 325 Mg Tablet 325 Mg PO DAILY Levothyroxine Sodium 112 Mcg Tablet 112 Mcg PO DAILY07 Lexapro (Escitalopram Oxalate) 20 Mg Tablet 20 Mg PO DAILY Guaifenesin 100 Mg/5 Ml Liquid 100 Mg PO PRN Q4HRS PRN Protonix (Pantoprazole Sodium) 40 Mg Tablet.dr 40 Mg PO DAILY Senna S Tablet (Sennosides/Docusate Sodium) 1 Each Tablet 1 Tab PO BID Tylenol (Acetaminophen) 325 Mg Tablet 650 Mg PO PRN Q6HRS PRN Dicyclomine Hcl 10 Mg Capsule 10 Mg PO TID Valium (Diazepam) 10 Mg Tablet 10 Mg PO QHS Carafate (Sucralfate) 1 Gm Tablet 1 Gm PO BID Flonase (Fluticasone Propionate) 16 Gm [place].susp 1 Spr NS DAILY Miralax (Polyethylene Glycol 3350) 17 Gm Powd.pack 17 Gm PO DAILY Diagnosis: Problems: (1) Altered mental state (2) Anxiety disorder (3) Impulse control disorder (4) Dementia, vascular, with depression (5) Alzheimer's dementia (6) Dementia, vascular, with delusions (7) Dementia, vascular, with 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
[2017-01-19] MEDS: LEVOTHYROXINE 112 MCG TABLET PO SCH (05:49)
[2017-01-19 05:58] VITALS: BP 147/80
[2017-01-19] MEDS: SERTRALINE 50 MG TABLET. PO SCH (06:37)
[2017-01-19] MEDS: POLYETHYLENE GLYCOL 3350 17 GM PACKET. PO SCH (06:37)
[2017-01-19] MEDS: SUCRALFATE 1 GM TABLET. PO SCH (06:38)
[2017-01-19] MEDS: SENNOSIDES/DOCUSATE 8.6/50MG TABLET. PO SCH ×2 (06:38→20:13)
[2017-01-19] MEDS: PANTOPRAZOLE 40 MG TABLET. PO SCH (06:38)
[2017-01-19] MEDS: DICYCLOMINE HCL 10 MG CAPSULE PO SCH ×3 (06:38→20:13)
[2017-01-19] MEDS: HALOPERIDOL 0.5 MG TABLET PO SCH ×2 (06:38→20:14)
[2017-01-19] MEDS: ASPIRIN 325 MG TABLET PO SCH (06:38)
[2017-01-19] MEDS: LISINOPRIL 5 MG TABLET. PO SCH (06:38)
[2017-01-19 07:52] LABS: BASO # 0.1 x10^3/uL (0.0-0.2); BASO % 1 % (0-3); EOS # 0.2 x10^3/uL (0.0-0.7); EOS % 3 % (0-3); HEMATOCRIT 38.1 % (36.0-47.0); HEMOGLOBIN 12.7 g/dL (12.0-15.5); LYMPH # 1.4 x10^3/uL (1.0-4.8); LYMPH % 20 % (24-48); MEAN CORPUSCULAR HEMOGLOBIN 31 pg (25-35); MEAN CORPUSCULAR HGB CONC 33 g/dL (31-37); MEAN CORPUSCULAR VOLUME 93 fL (79-100); MONO # 0.5 x10^3/uL (0.0-1.1); MONO % 8 % (0-9); NEUT # 4.5 x10^3uL (1.8-7.7); NEUT % 68 % (31-73); PLATELET COUNT 222 x10^3/uL (140-400); RED BLOOD COUNT 4.09 x10^6/uL (3.50-5.40); RED CELL DISTRIBUTION WIDTH 16.1 % (11.5-14.5); WHITE BLOOD COUNT 6.7 x10^3/uL (4.0-11.0)
--- NOTE | 2017-01-19 07:53 | PN ---
DATE: 01/17/2017 This late entry 01/17/2017 covers elements not covered in my initial note of 01/17/2017. SUBJECTIVE: I met with the patient evening of 01/17/2017. The patient remains confused, has a large bump on her forehead. She was restless, somewhat impulsive. The bruises are from recurrent falls. CT head shows no acute changes. We will check an EKG given the fact that she has been on Celexa 40 mg a day. REVIEW OF SYSTEMS: No CV, , pulmonary, eye, ENT system symptoms on review. Reliability poor. MENTAL STATUS EXAM: Oriented to herself. Insight, judgment, recent and remote memory, attention, concentration, fund of knowledge poor, consistent with her diagnosis mentioned in my initial note. PLAN: Check EKG, change Celexa to Zoloft 50 mg a day, start Seroquel 12.5 mg p.o. at bedtime to help with anxiety, delusions, mood lability and to augment the Zoloft. Reviewed drug interactions. Risk/benefit ratio favors no further change for now. ROSMERY CRUZ MD DR: RICHARD/doug JOB#: [id number] / [id number]
[2017-01-19 08:09] LABS: ALBUMIN 3.1 g/dL (3.4-5.0); ALBUMIN/GLOBULIN RATIO 0.8 (1.0-1.7); CALCIUM 8.9 mg/dL (8.5-10.1); MAGNESIUM 1.8 mg/dL (1.8-2.4); POTASSIUM 3.2 mmol/L (3.5-5.1); TOTAL BILIRUBIN 0.5 mg/dL (0.2-1.0); TOTAL PROTEIN 6.9 g/dL (6.4-8.2)
[2017-01-19] MEDS: busPIRone 5 MG TABLET. PO SCH ×2 (09:34→14:40)
[2017-01-19] MEDS: FLUTICASONE 50MCG/NASAL SPRAY 16GM BOTTLE. NS SCH (09:34)
[2017-01-19] MEDS: POLYVINYL ALCOHOL 1.4% OPHTH SOLUTION 15ML BOTTLE. OU SCH ×4 (09:34→20:13)
[2017-01-19] MEDS: POTASSIUM CHLORIDE 20 MEQ TABLET.ER. PO SCH (14:40)
[2017-01-19 16:11] VITALS: BP 148/89
[2017-01-19] MEDS: diazePAM 5 MG TABLET PO SCH (20:13)
--- NOTE | 2017-01-19 22:16 | PN ---
DATE: 01/18/2017 This late entry 01/18/2017 covers elements not covered in my initial note of 01/18/2017. SUBJECTIVE: Met with the patient evening of 01/18/2017. The patient slept in morning of 01/18/2017. EKG shows QT corrected 385 millisecond, takes her medications crushed, slept 6-1/2 hours previous evening, remains confused. No CV, , pulmonary, eye, ENT system symptoms on review. MENTAL STATUS EXAM: Oriented to herself. Insight, judgment, recent and remote memory, attention, concentration, fund of knowledge poor, consistent with her diagnosis mentioned in my initial note. PLAN: Start Buspar 5 mg twice a day 9:00 a.m. and 2 p.m. Continue Zoloft 50 mg a day, Haldol 0.25 mg b.i.d. plus p.r.n., Ativan p.r.n. Reviewed drug interactions, risk/benefit ratio favors no further change. ROSMERY CRUZ MD DR: RICHARD/doug JOB#: [id number] / [id number]
--- NOTE | 2017-01-19 23:45 | PDOC ---
Exam Yossi Demential Exam: Yossi Note: Please also refer to the separate dictated note~for this date of service dictated separately.~Patient seen individually. Discussed the patient with Nursing staff reviewed the chart.~Reviewed interim history and current functioning. Reviewed vital signs,~Labs/ Radiology~and current medications noted below. Continue current treatment with the changes noted in the dictated addendum note Assessment: Vital Signs: Vital Signs Date Time Temp Pulse Resp B/P (MAP) Pulse Ox O2 Delivery O2 Flow Rate FiO2 01/19/17 16:11 97.7 76 18 148/89 (108) 95 01/17/17 16:20 Room Air I&O Intake and Output 01/20/17 07:00 Intake Total 360 ml Output Total 240 ml Balance 120 ml Intake Oral 360 ml Output Urine Total 240 ml # Bowel Movements 1 Labs: Laboratory Tests Test 01/19/17 07:17 White Blood Count 6.7 x10^3/uL (4.0-11.0) Red Blood Count 4.09 x10^6/uL (3.50-5.40) Hemoglobin 12.7 g/dL (12.0-15.5) Hematocrit 38.1 % (36.0-47.0) Mean Corpuscular Volume 93 fL (79-100) Mean Corpuscular Hemoglobin 31 pg (25-35) Mean Corpuscular Hemoglobin Concent 33 g/dL (31-37) Red Cell Distribution Width 16.1 % (11.5-14.5) H Platelet Count 222 x10^3/uL (140-400) Neutrophils (%) (Auto) 68 % (31-73) Lymphocytes (%) (Auto) 20 % (24-48) L Monocytes (%) (Auto) 8 % (0-9) Eosinophils (%) (Auto) 3 % (0-3) Basophils (%) (Auto) 1 % (0-3) Neutrophils # (Auto) 4.5 x10^3uL (1.8-7.7) Lymphocytes # (Auto) 1.4 x10^3/uL (1.0-4.8) Monocytes # (Auto) 0.5 x10^3/uL (0.0-1.1) Eosinophils # (Auto) 0.2 x10^3/uL (0.0-0.7) Basophils # (Auto) 0.1 x10^3/uL (0.0-0.2) Sodium Level 142 mmol/L (136-145) Potassium Level 3.2 mmol/L (3.5-5.1) L Chloride Level 106 mmol/L (98-107) Carbon Dioxide Level 28 mmol/L (21-32) Anion Gap 8 (6-14) Blood Urea Nitrogen 12 mg/dL (7-20) Creatinine 1.0 mg/dL (0.6-1.0) Estimated GFR (Cockcroft-Gault) 53.0 BUN/Creatinine Ratio 12 (6-20) Glucose Level 95 mg/dL (70-99) Calcium Level 8.9 mg/dL (8.5-10.1) Magnesium Level 1.8 mg/dL (1.8-2.4) Total Bilirubin 0.5 mg/dL (0.2-1.0) Aspartate Amino Transferase (AST) 22 U/L (15-37) Alanine Aminotransferase (ALT) 18 U/L (14-59) Alkaline Phosphatase 132 U/L (46-116) H Total Protein 6.9 g/dL (6.4-8.2) Albumin 3.1 g/dL (3.4-5.0) L Albumin/Globulin Ratio 0.8 (1.0-1.7) L Current Medications: Meds: Current Medications Acetaminophen (Tylenol) 650 mg PRN Q6HRS PRN PO PAIN / TEMP; Start 01/16/17 at 17:15; Status UNV Multi-Ingredient Ointment (Analgesic [place]) 1 karime PRN QID PRN TP MUSCLE PAIN; Start 01/16/17 at 17:15; Status Cancel Al Hydroxide/Mg Hydroxide (Mylanta Plus Xs) 15 ml PRN AFTMEALHC PRN PO DYSPEPSIA; Start 01/16/17 at 17:15 Magnesium Hydroxide (Milk Of Magnesia) 2,400 mg PRN QHS PRN PO CONSTIPATION; Start 01/16/17 at 17:15 Acetaminophen (Tylenol) 650 mg PRN Q6HRS PRN PO PAIN / TEMP; Start 01/16/17 at 17:30 Aspirin (Lana Aspirin) 325 mg DAILY PO Last administered on 01/19/17t 06:38; Start 01/17/17 at 09:00 Dicyclomine HCl (Bentyl) 10 mg TID PO Last administered on 01/19/17 20:13; Start 01/16/17 at 21:00 Fluticasone Propionate (Flonase) 1 spray DAILY NS Last administered on 09:34; Start 01/17/17 at 09:00 Guaifenesin (Robitussin) 100 mg PRN Q4HRS PRN PO COUGH; Start 01/16/17 at 17:30 Levothyroxine Sodium (Synthroid) 112 mcg DAILY07 PO Last administered on 05:49; Start 01/17/17 at 07:00 Lisinopril (Prinivil) 5 mg DAILY PO Last administered on 01/19/17 06:38; Start 01/17/17 at 09:00 Pantoprazole Sodium (Protonix) 40 mg DAILY PO Last administered on 01/19/17 06 :38; Start 01/17/17 at 09:00 Polyethylene Glycol (miraLAX) 17 gm DAILY PO Last administered on 01/19/17 06: 37; Start 01/17/17 at 09:00 Artificial Tears (Artificial Tears) 1 drop QID OU Last administered on 20:13; Start 01/16/17 at 21:00 Senna/Docusate Sodium (Senna Plus) 1 tab BID PO Last administered on 01/19/17 20:13; Start 01/16/17 at 21:00 Sucralfate (Carafate) 1 gm BIDBFRMEAL PO Last administered on 01/19/17 06:38; Start 01/17/17 at 07:30; Stop 01/19/17 at 10:48; Status DC Non-Formulary Medication 3 drop PRN Q1HR PRN SL SECRETIONS; Start 01/16/17 at 17:30; Status UNV Non-Formulary Medication 1 drop BID OU ; Start 01/16/17 at 21:00; Status UNV Non-Formulary Medication 1 karime PRN QID PRN TP MUSCLE PAIN; Start 01/16/17 at 17 :30; Status UNV Morphine Sulfate (Morphine Oral Solution) 5 mg PRN Q4HRS PRN PO MODERATE PAIN; Start 01/16/17 at 18:00 Haloperidol (Haldol) 0.25 mg BID PO Last administered on 01/19/17 20:14; Start 01/16/17 at 21:00 Haloperidol (Haldol) 0.5 mg PRN Q6HRS PRN PO ANXIETY / AGITATION; Start at 17:45 Lorazepam (Ativan Intensol) 1 mg PRN Q4HRS PRN PO ANXIETY / AGITATION Last administered on 01/17/17 00:41; Start 01/16/17 at 17:45 Diazepam (Valium) 10 mg HS PO Last administered on 01/16/17 22:31; Start 01/16 at 21:00; Stop 01/17/17 at 16:24; Status DC Escitalopram Oxalate (Lexapro) 20 mg DAILY PO Last administered on 01/17/17 09 :06; Start 01/17/17 at 09:00; Stop 01/17/17 at 19:09; Status DC Multi-Ingredient Ointment (Analgesic [place]) 1 karime PRN QID PRN TP MUSCLE PAIN; Start 01/16/17 at 18:00 Diazepam (Valium) 10 mg QHS PO Last administered on 01/19/17 20:13; Start 01/17/17 at 21:00 Sertraline HCl (Zoloft) 50 mg DAILY PO Last administered on 01/19/17 06:37; Start 01/18/17 at 09:00 Buspirone HCl (Buspar) 5 mg BID92 PO Last administered on 01/19/17 14:40; Start 01/19/17 at 09:00 Potassium Chloride (Klor-Con) 20 meq DAILYBFRLUN PO Last administered on 14:40; Start 01/19/17 at 11:30 Cyanocobalamin (Vitamin B-12) 1,000 mcg DAILY IM ; Start 01/20/17 at 09:00; Stop 01/24/17 at 08:59 Cyanocobalamin (Vitamin B-12) 1,000 mcg [id number] IM ; Start 02/16/17 at 09:00 Active Scripts Active Reported Morphine Sulfate 20 Mg/5 Ml Solution 5 Mg PO PRN Q4HRS PRN Haloperidol 0.5 Mg Tablet 0.25 Mg PO BID Haloperidol 0.5 Mg Tablet 0.5 Mg PO PRN Q6HRS PRN Lisinopril 5 Mg Tablet 5 Mg PO DAILY Lorazepam Intensol (Lorazepam) 2 Mg/1 Ml Oral.conc 1 Mg PO PRN Q4HRS PRN Atropine 0.01%-Ns Eye Drops (Atropine Sulfate in 0.9% NaCl) 10 Ml Drops 3 Drop SL PRN Q1HR PRN Biofreeze (Menthol) 118 Ml Gel..ml. 1 [place] TP PRN QID PRN Artificial Tears (Polyvinyl Alcohol) 15 Ml Drops 1 Drop OU QID Refresh Tears (Carboxymethylcellulose Sodium) 15 Ml Drops 1 Drop OU BID Aspirin 325 Mg Tablet 325 Mg PO DAILY Levothyroxine Sodium 112 Mcg Tablet 112 Mcg PO DAILY07 Lexapro (Escitalopram Oxalate) 20 Mg Tablet 20 Mg PO DAILY Guaifenesin 100 Mg/5 Ml Liquid 100 Mg PO PRN Q4HRS PRN Protonix (Pantoprazole Sodium) 40 Mg Tablet.dr 40 Mg PO DAILY Senna S Tablet (Sennosides/Docusate Sodium) 1 Each Tablet 1 Tab PO BID Tylenol (Acetaminophen) 325 Mg Tablet 650 Mg PO PRN Q6HRS PRN Dicyclomine Hcl 10 Mg Capsule 10 Mg PO TID Valium (Diazepam) 10 Mg Tablet 10 Mg PO QHS Carafate (Sucralfate) 1 Gm Tablet 1 Gm PO BID Flonase (Fluticasone Propionate) 16 Gm [place].susp 1 Spr NS DAILY Miralax (Polyethylene Glycol 3350) 17 Gm Powd.pack 17 Gm PO DAILY Diagnosis: Problems: (1) Altered mental state (2) Anxiety disorder (3) Impulse control disorder (4) Alzheimer's dementia (5) Dementia, vascular, with depression (6) Dementia, vascular, with delusions (7) Dementia, vascular, with 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
[2017-01-20 06:12] VITALS: BP 165/84
[2017-01-20] MEDS: LEVOTHYROXINE 112 MCG TABLET PO SCH (06:37)
[2017-01-20] MEDS: PANTOPRAZOLE 40 MG TABLET. PO SCH (09:27)
[2017-01-20] MEDS: ASPIRIN 325 MG TABLET PO SCH (09:27)
[2017-01-20] MEDS: LISINOPRIL 5 MG TABLET. PO SCH (09:27)
[2017-01-20] MEDS: SENNOSIDES/DOCUSATE 8.6/50MG TABLET. PO SCH ×2 (09:27→19:38)
[2017-01-20] MEDS: DICYCLOMINE HCL 10 MG CAPSULE PO SCH ×3 (09:27→19:38)
[2017-01-20] MEDS: HALOPERIDOL 0.5 MG TABLET PO SCH ×2 (09:28→19:38)
[2017-01-20] MEDS: busPIRone 5 MG TABLET. PO SCH ×2 (09:28→14:57)
[2017-01-20] MEDS: SERTRALINE 50 MG TABLET. PO SCH (09:28)
[2017-01-20] MEDS: POLYETHYLENE GLYCOL 3350 17 GM PACKET. PO SCH (09:46)
[2017-01-20] MEDS: POLYVINYL ALCOHOL 1.4% OPHTH SOLUTION 15ML BOTTLE. OU SCH ×4 (09:46→19:39)
[2017-01-20] MEDS: FLUTICASONE 50MCG/NASAL SPRAY 16GM BOTTLE. NS SCH (09:46)
[2017-01-20] MEDS: CYANOCOBALAMIN (VITAMIN B-12) 1,000 MCG/ML VIAL IM SCH (09:58)
[2017-01-20] MEDS: POTASSIUM CHLORIDE 20 MEQ TABLET.ER. PO SCH (12:42)
[2017-01-20 16:33] VITALS: BP 120/77
--- NOTE | 2017-01-20 18:01 | PDOC ---
Exam Yossi Demential Exam: Yossi Note: Please also refer to the separate dictated note~for this date of service dictated separately.~Patient seen individually. Discussed the patient with Nursing staff reviewed the chart.~Reviewed interim history and current functioning. Reviewed vital signs,~Labs/ Radiology~and current medications noted below. Continue current treatment with the changes noted in the dictated addendum note Assessment: Vital Signs: Vital Signs Date Time Temp Pulse Resp B/P (MAP) Pulse Ox O2 Delivery O2 Flow Rate FiO2 01/20/17 16:33 98.0 82 20 120/77 (91) 96 01/17/17 16:20 Room Air I&O Intake and Output 01/21/17 07:00 Intake Total 360 ml Balance 360 ml Intake Oral 360 ml Current Medications: Meds: Current Medications Acetaminophen (Tylenol) 650 mg PRN Q6HRS PRN PO PAIN / TEMP; Start 01/16/17 at 17:15; Status UNV Multi-Ingredient Ointment (Analgesic [place]) 1 karime PRN QID PRN TP MUSCLE PAIN; Start 01/16/17 at 17:15; Status Cancel Al Hydroxide/Mg Hydroxide (Mylanta Plus Xs) 15 ml PRN AFTMEALHC PRN PO DYSPEPSIA; Start 01/16/17 at 17:15 Magnesium Hydroxide (Milk Of Magnesia) 2,400 mg PRN QHS PRN PO CONSTIPATION; Start 01/16/17 at 17:15 Acetaminophen (Tylenol) 650 mg PRN Q6HRS PRN PO PAIN / TEMP; Start 01/16/17 at 17:30 Aspirin (Lana Aspirin) 325 mg DAILY PO Last administered on 01/20/17 09:27; Start 01/17/17 at 09:00 Dicyclomine HCl (Bentyl) 10 mg TID PO Last administered on 01/20/17 14:57; Start 01/16/17 at 21:00 Fluticasone Propionate (Flonase) 1 spray DAILY NS Last administered on 09:46; Start 01/17/17 at 09:00 Guaifenesin (Robitussin) 100 mg PRN Q4HRS PRN PO COUGH; Start 01/16/17 at 17:30 Levothyroxine Sodium (Synthroid) 112 mcg DAILY07 PO Last administered on 06:37; Start 01/17/17 at 07:00 Lisinopril (Prinivil) 5 mg DAILY PO Last administered on 01/20/17 09:27; Start 01/17/17 at 09:00; Stop 01/20/17 at 15:25; Status DC Pantoprazole Sodium (Protonix) 40 mg DAILY PO Last administered on 01/20/17 09 :27; Start 01/17/17 at 09:00 Polyethylene Glycol (miraLAX) 17 gm DAILY PO Last administered on 01/20/17 09: 46; Start 01/17/17 at 09:00 Artificial Tears (Artificial Tears) 1 drop QID OU Last administered on 14:57; Start 01/16/17 at 21:00 Senna/Docusate Sodium (Senna Plus) 1 tab BID PO Last administered on 01/20/17 09:27; Start 01/16/17 at 21:00 Sucralfate (Carafate) 1 gm BIDBFRMEAL PO Last administered on 01/19/17 06:38; Start 01/17/17 at 07:30; Stop 01/19/17 at 10:48; Status DC Non-Formulary Medication 3 drop PRN Q1HR PRN SL SECRETIONS; Start 01/16/17 at 17:30; Status UNV Non-Formulary Medication 1 drop BID OU ; Start 01/16/17 at 21:00; Status UNV Non-Formulary Medication 1 karime PRN QID PRN TP MUSCLE PAIN; Start 01/16/17 at 17 :30; Status UNV Morphine Sulfate (Morphine Oral Solution) 5 mg PRN Q4HRS PRN PO MODERATE PAIN; Start 01/16/17 at 18:00 Haloperidol (Haldol) 0.25 mg BID PO Last administered on 01/20/17 09:28; Start 01/16/17 at 21:00 Haloperidol (Haldol) 0.5 mg PRN Q6HRS PRN PO ANXIETY / AGITATION; Start at 17:45 Lorazepam (Ativan Intensol) 1 mg PRN Q4HRS PRN PO ANXIETY / AGITATION Last administered on 01/17/17 00:41; Start 01/16/17 at 17:45 Diazepam (Valium) 10 mg HS PO Last administered on 01/16/17 22:31; Start 01/16 at 21:00; Stop 01/17/17 at 16:24; Status DC Escitalopram Oxalate (Lexapro) 20 mg DAILY PO Last administered on 01/17/17 09 :06; Start 01/17/17 at 09:00; Stop 01/17/17 at 19:09; Status DC Multi-Ingredient Ointment (Analgesic [place]) 1 karime PRN QID PRN TP MUSCLE PAIN; Start 01/16/17 at 18:00 Diazepam (Valium) 10 mg QHS PO Last administered on 01/19/17 20:13; Start 01/17/17 at 21:00 Sertraline HCl (Zoloft) 50 mg DAILY PO Last administered on 01/20/17 09:28; Start 01/18/17 at 09:00 Buspirone HCl (Buspar) 5 mg BID92 PO Last administered on 01/20/17 14:57; Start 01/19/17 at 09:00 Potassium Chloride (Klor-Con) 20 meq DAILYBFRLUN PO Last administered on 12:42; Start 01/19/17 at 11:30 Cyanocobalamin (Vitamin B-12) 1,000 mcg DAILY IM Last administered on 09:58; Start 01/20/17 at 09:00; Stop 01/24/17 at 08:59 Cyanocobalamin (Vitamin B-12) 1,000 mcg [id number] IM ; Start 02/16/17 at 09:00 Lisinopril (Prinivil) 10 mg DAILY PO ; Start 01/21/17 at 09:00 Active Scripts Active Reported Morphine Sulfate 20 Mg/5 Ml Solution 5 Mg PO PRN Q4HRS PRN Haloperidol 0.5 Mg Tablet 0.25 Mg PO BID Haloperidol 0.5 Mg Tablet 0.5 Mg PO PRN Q6HRS PRN Lisinopril 5 Mg Tablet 5 Mg PO DAILY Lorazepam Intensol (Lorazepam) 2 Mg/1 Ml Oral.conc 1 Mg PO PRN Q4HRS PRN Atropine 0.01%-Ns Eye Drops (Atropine Sulfate in 0.9% NaCl) 10 Ml Drops 3 Drop SL PRN Q1HR PRN Biofreeze (Menthol) 118 Ml Gel..ml. 1 [place] TP PRN QID PRN Artificial Tears (Polyvinyl Alcohol) 15 Ml Drops 1 Drop OU QID Refresh Tears (Carboxymethylcellulose Sodium) 15 Ml Drops 1 Drop OU BID Aspirin 325 Mg Tablet 325 Mg PO DAILY Levothyroxine Sodium 112 Mcg Tablet 112 Mcg PO DAILY07 Lexapro (Escitalopram Oxalate) 20 Mg Tablet 20 Mg PO DAILY Guaifenesin 100 Mg/5 Ml Liquid 100 Mg PO PRN Q4HRS PRN Protonix (Pantoprazole Sodium) 40 Mg Tablet.dr 40 Mg PO DAILY Senna S Tablet (Sennosides/Docusate Sodium) 1 Each Tablet 1 Tab PO BID Tylenol (Acetaminophen) 325 Mg Tablet 650 Mg PO PRN Q6HRS PRN Dicyclomine Hcl 10 Mg Capsule 10 Mg PO TID Valium (Diazepam) 10 Mg Tablet 10 Mg PO QHS Carafate (Sucralfate) 1 Gm Tablet 1 Gm PO BID Flonase (Fluticasone Propionate) 16 Gm [place].susp 1 Spr NS DAILY Miralax (Polyethylene Glycol 3350) 17 Gm Powd.pack 17 Gm PO DAILY Diagnosis: Problems: (1) Impulse control disorder (2) Dementia in Alzheimer's disease with delusions (3) Dementia in Alzheimer's disease with depression (4) Dementia, vascular, with delusions (5) Dementia, vascular, with delusions (6) Dementia, vascular, with depression (7) Alzheimer's dementia (8) Impulse control disorder (9) Anxiety disorder ROSMERY CRUZ MD Jan 20, 2017 18:01
[2017-01-20] MEDS: diazePAM 5 MG TABLET PO SCH (19:38)
--- NOTE | 2017-01-20 20:02 | PDOC ---
Exam Yossi Demential Exam: Yossi Note: Please also refer to the separate dictated note~for this date of service dictated separately.~Patient seen individually. Discussed the patient with Nursing staff reviewed the chart.~Reviewed interim history and current functioning. Reviewed vital signs,~Labs/ Radiology~and current medications noted below. Continue current treatment with the changes noted in the dictated addendum note Assessment: Vital Signs: Vital Signs Date Time Temp Pulse Resp B/P (MAP) Pulse Ox O2 Delivery O2 Flow Rate FiO2 01/20/17 16:33 98.0 82 20 120/77 (91) 96 01/17/17 16:20 Room Air I&O Intake and Output 01/21/17 07:00 Intake Total 720 ml Balance 720 ml Intake Oral 720 ml Current Medications: Meds: Current Medications Acetaminophen (Tylenol) 650 mg PRN Q6HRS PRN PO PAIN / TEMP; Start 01/16/17 at 17:15; Status UNV Multi-Ingredient Ointment (Analgesic [place]) 1 karime PRN QID PRN TP MUSCLE PAIN; Start 01/16/17 at 17:15; Status Cancel Al Hydroxide/Mg Hydroxide (Mylanta Plus Xs) 15 ml PRN AFTMEALHC PRN PO DYSPEPSIA; Start 01/16/17 at 17:15 Magnesium Hydroxide (Milk Of Magnesia) 2,400 mg PRN QHS PRN PO CONSTIPATION; Start 01/16/17 at 17:15 Acetaminophen (Tylenol) 650 mg PRN Q6HRS PRN PO PAIN / TEMP; Start 01/16/17 at 17:30 Aspirin (Lana Aspirin) 325 mg DAILY PO Last administered on 01/20/17 09:27; Start 01/17/17 at 09:00 Dicyclomine HCl (Bentyl) 10 mg TID PO Last administered on 01/20/17 19:38; Start 01/16/17 at 21:00 Fluticasone Propionate (Flonase) 1 spray DAILY NS Last administered on 09:46; Start 01/17/17 at 09:00 Guaifenesin (Robitussin) 100 mg PRN Q4HRS PRN PO COUGH; Start 01/16/17 at 17:30 Levothyroxine Sodium (Synthroid) 112 mcg DAILY07 PO Last administered on 06:37; Start 01/17/17 at 07:00 Lisinopril (Prinivil) 5 mg DAILY PO Last administered on 01/20/17 09:27; Start 01/17/17 at 09:00; Stop 01/20/17 at 15:25; Status DC Pantoprazole Sodium (Protonix) 40 mg DAILY PO Last administered on 01/20/17 09 :27; Start 01/17/17 at 09:00 Polyethylene Glycol (miraLAX) 17 gm DAILY PO Last administered on 01/20/17 09: 46; Start 01/17/17 at 09:00 Artificial Tears (Artificial Tears) 1 drop QID OU Last administered on 19:39; Start 01/16/17 at 21:00 Senna/Docusate Sodium (Senna Plus) 1 tab BID PO Last administered on 01/20/17 19:38; Start 01/16/17 at 21:00 Sucralfate (Carafate) 1 gm BIDBFRMEAL PO Last administered on 01/19/17 06:38; Start 01/17/17 at 07:30; Stop 01/19/17 at 10:48; Status DC Non-Formulary Medication 3 drop PRN Q1HR PRN SL SECRETIONS; Start 01/16/17 at 17:30; Status UNV Non-Formulary Medication 1 drop BID OU ; Start 01/16/17 at 21:00; Status UNV Non-Formulary Medication 1 karime PRN QID PRN TP MUSCLE PAIN; Start 01/16/17 at 17 :30; Status UNV Morphine Sulfate (Morphine Oral Solution) 5 mg PRN Q4HRS PRN PO MODERATE PAIN; Start 01/16/17 at 18:00 Haloperidol (Haldol) 0.25 mg BID PO Last administered on 01/20/17 19:38; Start 01/16/17 at 21:00 Haloperidol (Haldol) 0.5 mg PRN Q6HRS PRN PO ANXIETY / AGITATION; Start at 17:45 Lorazepam (Ativan Intensol) 1 mg PRN Q4HRS PRN PO ANXIETY / AGITATION Last administered on 01/17/17 00:41; Start 01/16/17 at 17:45 Diazepam (Valium) 10 mg HS PO Last administered on 01/16/17 22:31; Start 01/16 at 21:00; Stop 01/17/17 at 16:24; Status DC Escitalopram Oxalate (Lexapro) 20 mg DAILY PO Last administered on 01/17/17 09 :06; Start 01/17/17 at 09:00; Stop 01/17/17 at 19:09; Status DC Multi-Ingredient Ointment (Analgesic [place]) 1 karime PRN QID PRN TP MUSCLE PAIN; Start 01/16/17 at 18:00 Diazepam (Valium) 10 mg QHS PO Last administered on 01/20/17 19:38; Start 01/17/17 at 21:00 Sertraline HCl (Zoloft) 50 mg DAILY PO Last administered on 01/20/17 09:28; Start 01/18/17 at 09:00 Buspirone HCl (Buspar) 5 mg BID92 PO Last administered on 01/20/17 14:57; Start 01/19/17 at 09:00 Potassium Chloride (Klor-Con) 20 meq DAILYBFRLUN PO Last administered on 12:42; Start 01/19/17 at 11:30 Cyanocobalamin (Vitamin B-12) 1,000 mcg DAILY IM Last administered on 09:58; Start 01/20/17 at 09:00; Stop 01/24/17 at 08:59 Cyanocobalamin (Vitamin B-12) 1,000 mcg [id number] IM ; Start 02/16/17 at 09:00 Lisinopril (Prinivil) 10 mg DAILY PO ; Start 01/21/17 at 09:00 Active Scripts Active Reported Morphine Sulfate 20 Mg/5 Ml Solution 5 Mg PO PRN Q4HRS PRN Haloperidol 0.5 Mg Tablet 0.25 Mg PO BID Haloperidol 0.5 Mg Tablet 0.5 Mg PO PRN Q6HRS PRN Lisinopril 5 Mg Tablet 5 Mg PO DAILY Lorazepam Intensol (Lorazepam) 2 Mg/1 Ml Oral.conc 1 Mg PO PRN Q4HRS PRN Atropine 0.01%-Ns Eye Drops (Atropine Sulfate in 0.9% NaCl) 10 Ml Drops 3 Drop SL PRN Q1HR PRN Biofreeze (Menthol) 118 Ml Gel..ml. 1 Karime TP PRN QID PRN Artificial Tears (Polyvinyl Alcohol) 15 Ml Drops 1 Drop OU QID Refresh Tears (Carboxymethylcellulose Sodium) 15 Ml Drops 1 Drop OU BID Aspirin 325 Mg Tablet 325 Mg PO DAILY Levothyroxine Sodium 112 Mcg Tablet 112 Mcg PO DAILY07 Lexapro (Escitalopram Oxalate) 20 Mg Tablet 20 Mg PO DAILY Guaifenesin 100 Mg/5 Ml Liquid 100 Mg PO PRN Q4HRS PRN Protonix (Pantoprazole Sodium) 40 Mg Tablet.dr 40 Mg PO DAILY Senna S Tablet (Sennosides/Docusate Sodium) 1 Each Tablet 1 Tab PO BID Tylenol (Acetaminophen) 325 Mg Tablet 650 Mg PO PRN Q6HRS PRN Dicyclomine Hcl 10 Mg Capsule 10 Mg PO TID Valium (Diazepam) 10 Mg Tablet 10 Mg PO QHS Carafate (Sucralfate) 1 Gm Tablet 1 Gm PO BID Flonase (Fluticasone Propionate) 16 Gm [place].susp 1 Spr NS DAILY Miralax (Polyethylene Glycol 3350) 17 Gm Powd.pack 17 Gm PO DAILY Diagnosis: Problems: (1) Altered mental state (2) Anxiety disorder (3) Impulse control disorder (4) Alzheimer's dementia (5) Dementia, vascular, with depression (6) Dementia, vascular, with delusions (7) Dementia, vascular, with delusions (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
[2017-01-21] MEDS: LEVOTHYROXINE 112 MCG TABLET PO SCH (06:14)
[2017-01-21 06:21] VITALS: BP 158/83
--- NOTE | 2017-01-21 09:50 | PN ---
DATE: 01/19/2017 This late entry, 01/19/2017, covers elements not covered in my initial note of 01/19/2017. SUBJECTIVE: I met with the patient the evening of 01/19/2017. The patient slept for 5-3/4 hours previous evening and had a good day, somewhat impulsive, disorganized. REVIEW OF SYSTEMS: No CV, , pulmonary, eye, ENT system symptoms on review. Gait unsteady. Reliability poor. MENTAL STATUS EXAM: Oriented to herself. Insight, judgment, recent and remote memory, attention, concentration, fund of knowledge poor consistent with her diagnosis mentioned in my initial note. PLAN: Continue current psychotropics. Reviewed drug interactions. Risk/benefit ratio favors no further change. ROSMERY CRUZ MD DR: RICHARD/doug JOB#: [id number] / [id number]
[2017-01-21] MEDS: CYANOCOBALAMIN (VITAMIN B-12) 1,000 MCG/ML VIAL IM SCH (10:55)
[2017-01-21] MEDS: POLYVINYL ALCOHOL 1.4% OPHTH SOLUTION 15ML BOTTLE. OU SCH ×4 (10:55→19:25)
[2017-01-21] MEDS: POLYETHYLENE GLYCOL 3350 17 GM PACKET. PO SCH (10:55)
[2017-01-21] MEDS: HALOPERIDOL 0.5 MG TABLET PO SCH ×2 (10:56→19:24)
[2017-01-21] MEDS: SENNOSIDES/DOCUSATE 8.6/50MG TABLET. PO SCH ×2 (10:56→19:24)
[2017-01-21] MEDS: PANTOPRAZOLE 40 MG TABLET. PO SCH (10:56)
[2017-01-21] MEDS: DICYCLOMINE HCL 10 MG CAPSULE PO SCH ×3 (10:56→19:24)
[2017-01-21] MEDS: ASPIRIN 325 MG TABLET PO SCH (10:56)
[2017-01-21] MEDS: SERTRALINE 50 MG TABLET. PO SCH (10:56)
[2017-01-21] MEDS: busPIRone 5 MG TABLET. PO SCH ×2 (10:56→14:40)
[2017-01-21] MEDS: LISINOPRIL 10 MG TABLET PO SCH (10:59)
[2017-01-21] MEDS: FLUTICASONE 50MCG/NASAL SPRAY 16GM BOTTLE. NS SCH (10:59)
[2017-01-21] MEDS: POTASSIUM CHLORIDE 20 MEQ TABLET.ER. PO SCH (14:41)
[2017-01-21 16:01] VITALS: BP 133/77
[2017-01-21] MEDS: diazePAM 5 MG TABLET PO SCH (19:24)
--- NOTE | 2017-01-21 19:49 | PDOC ---
Exam Yossi Demential Exam: Yossi Note: Please also refer to the separate dictated note~for this date of service dictated separately.~Patient seen individually. Discussed the patient with Nursing staff reviewed the chart.~Reviewed interim history and current functioning. Reviewed vital signs,~Labs/ Radiology~and current medications noted below. Continue current treatment with the changes noted in the dictated addendum note Assessment: Vital Signs: Vital Signs Date Time Temp Pulse Resp B/P (MAP) Pulse Ox O2 Delivery O2 Flow Rate FiO2 01/21/17 16:01 98.9 95 16 133/77 (95) 96 01/17/17 16:20 Room Air I&O Intake and Output 01/22/17 07:00 Intake Total 900 ml Balance 900 ml Intake Oral 900 ml Current Medications: Meds: Current Medications Acetaminophen (Tylenol) 650 mg PRN Q6HRS PRN PO PAIN / TEMP; Start 01/16/17 at 17:15; Status UNV Multi-Ingredient Ointment (Analgesic [place]) 1 karime PRN QID PRN TP MUSCLE PAIN; Start 01/16/17 at 17:15; Status Cancel Al Hydroxide/Mg Hydroxide (Mylanta Plus Xs) 15 ml PRN AFTMEALHC PRN PO DYSPEPSIA; Start 01/16/17 at 17:15 Magnesium Hydroxide (Milk Of Magnesia) 2,400 mg PRN QHS PRN PO CONSTIPATION; Start 01/16/17 at 17:15 Acetaminophen (Tylenol) 650 mg PRN Q6HRS PRN PO PAIN / TEMP; Start 01/16/17 at 17:30 Aspirin (Lana Aspirin) 325 mg DAILY PO Last administered on 01/21/17 10:56; Start 01/17/17 at 09:00 Dicyclomine HCl (Bentyl) 10 mg TID PO Last administered on 01/21/17 19:24; Start 01/16/17 at 21:00 Fluticasone Propionate (Flonase) 1 spray DAILY NS Last administered on 10:59; Start 01/17/17 at 09:00 Guaifenesin (Robitussin) 100 mg PRN Q4HRS PRN PO COUGH; Start 01/16/17 at 17:30 Levothyroxine Sodium (Synthroid) 112 mcg DAILY07 PO Last administered on 06:14; Start 01/17/17 at 07:00 Lisinopril (Prinivil) 5 mg DAILY PO Last administered on 01/20/17 09:27; Start 01/17/17 at 09:00; Stop 01/20/17 at 15:25; Status DC Pantoprazole Sodium (Protonix) 40 mg DAILY PO Last administered on 01/21/17 10 :56; Start 01/17/17 at 09:00 Polyethylene Glycol (miraLAX) 17 gm DAILY PO Last administered on 01/21/17 10: 55; Start 01/17/17 at 09:00 Artificial Tears (Artificial Tears) 1 drop QID OU Last administered on 19:25; Start 01/16/17 at 21:00 Senna/Docusate Sodium (Senna Plus) 1 tab BID PO Last administered on 01/21/17 19:24; Start 01/16/17 at 21:00 Sucralfate (Carafate) 1 gm BIDBFRMEAL PO Last administered on 01/19/17 06:38; Start 01/17/17 at 07:30; Stop 01/19/17 at 10:48; Status DC Non-Formulary Medication 3 drop PRN Q1HR PRN SL SECRETIONS; Start 01/16/17 at 17:30; Status UNV Non-Formulary Medication 1 drop BID OU ; Start 01/16/17 at 21:00; Status UNV Non-Formulary Medication 1 karime PRN QID PRN TP MUSCLE PAIN; Start 01/16/17 at 17 :30; Status UNV Morphine Sulfate (Morphine Oral Solution) 5 mg PRN Q4HRS PRN PO MODERATE PAIN; Start 01/16/17 at 18:00 Haloperidol (Haldol) 0.25 mg BID PO Last administered on 01/21/17 19:24; Start 01/16/17 at 21:00 Haloperidol (Haldol) 0.5 mg PRN Q6HRS PRN PO ANXIETY / AGITATION; Start at 17:45 Lorazepam (Ativan Intensol) 1 mg PRN Q4HRS PRN PO ANXIETY / AGITATION Last administered on 01/17/17 00:41; Start 01/16/17 at 17:45 Diazepam (Valium) 10 mg HS PO Last administered on 01/16/17 22:31; Start 01/16 at 21:00; Stop 01/17/17 at 16:24; Status DC Escitalopram Oxalate (Lexapro) 20 mg DAILY PO Last administered on 01/17/17 09 :06; Start 01/17/17 at 09:00; Stop 01/17/17 at 19:09; Status DC Multi-Ingredient Ointment (Analgesic [place]) 1 karime PRN QID PRN TP MUSCLE PAIN; Start 01/16/17 at 18:00 Diazepam (Valium) 10 mg QHS PO Last administered on 01/21/17 19:24; Start 01/17/17 at 21:00 Sertraline HCl (Zoloft) 50 mg DAILY PO Last administered on 01/21/17 10:56; Start 01/18/17 at 09:00 Buspirone HCl (Buspar) 5 mg BID92 PO Last administered on 01/21/17 14:40; Start 01/19/17 at 09:00 Potassium Chloride (Klor-Con) 20 meq DAILYBFRLUN PO Last administered on 14:41; Start 01/19/17 at 11:30 Cyanocobalamin (Vitamin B-12) 1,000 mcg DAILY IM Last administered on 10:55; Start 01/20/17 at 09:00; Stop 01/24/17 at 08:59 Cyanocobalamin (Vitamin B-12) 1,000 mcg [id number] IM ; Start 02/16/17 at 09:00 Lisinopril (Prinivil) 10 mg DAILY PO Last administered on 01/21/17 10:59; Start 01/21/17 at 09:00 Quetiapine Fumarate (SEROquel) 12.5 mg BID@0900,1400 PO ; Start 01/22/17 at 09: 00 Active Scripts Active Reported Morphine Sulfate 20 Mg/5 Ml Solution 5 Mg PO PRN Q4HRS PRN Haloperidol 0.5 Mg Tablet 0.25 Mg PO BID Haloperidol 0.5 Mg Tablet 0.5 Mg PO PRN Q6HRS PRN Lisinopril 5 Mg Tablet 5 Mg PO DAILY Lorazepam Intensol (Lorazepam) 2 Mg/1 Ml Oral.conc 1 Mg PO PRN Q4HRS PRN Atropine 0.01%-Ns Eye Drops (Atropine Sulfate in 0.9% NaCl) 10 Ml Drops 3 Drop SL PRN Q1HR PRN Biofreeze (Menthol) 118 Ml Gel..ml. 1 Kar[place] TP PRN QID PRN Artificial Tears (Polyvinyl Alcohol) 15 Ml Drops 1 Drop OU QID Refresh Tears (Carboxymethylcellulose Sodium) 15 Ml Drops 1 Drop OU BID Aspirin 325 Mg Tablet 325 Mg PO DAILY Levothyroxine Sodium 112 Mcg Tablet 112 Mcg PO DAILY07 Lexapro (Escitalopram Oxalate) 20 Mg Tablet 20 Mg PO DAILY Guaifenesin 100 Mg/5 Ml Liquid 100 Mg PO PRN Q4HRS PRN Protonix (Pantoprazole Sodium) 40 Mg Tablet.dr 40 Mg PO DAILY Senna S Tablet (Sennosides/Docusate Sodium) 1 Each Tablet 1 Tab PO BID Tylenol (Acetaminophen) 325 Mg Tablet 650 Mg PO PRN Q6HRS PRN Dicyclomine Hcl 10 Mg Capsule 10 Mg PO TID Valium (Diazepam) 10 Mg Tablet 10 Mg PO QHS Carafate (Sucralfate) 1 Gm Tablet 1 Gm PO BID Flonase (Fluticasone Propionate) 16 Gm [place].susp 1 Spr NS DAILY Miralax (Polyethylene Glycol 3350) 17 Gm Powd.pack 17 Gm PO DAILY Diagnosis: Problems: (1) Altered mental state (2) Anxiety disorder (3) Impulse control disorder (4) Alzheimer's dementia (5) Dementia, vascular, with depression (6) Dementia, vascular, with delusions (7) Dementia, vascular, with 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
--- NOTE | 2017-01-22 04:35 | PN ---
DATE: 01/21/2017 PSYCHIATRIC PROGRESS NOTE This late entry 01/20/2017 covers elements not covered in my initial note of 01/20/2017. SUBJECTIVE: The patient was seen individually evening of 01/20/2017. She has been confused, cooperative, somewhat anxious, restless, trying to get out of the Broda chair. REVIEW OF SYSTEMS: Ambulation impaired, in a Broda chair. No CV, , pulmonary, eye, ENT system symptoms on review. Reliability poor. MENTAL STATUS EXAM: Oriented to herself. Insight, judgment, recent and remote memory, attention, concentration, fund of knowledge poor, consistent with her diagnosis mentioned in my initial note. PLAN: Continue current psychotropics including Zoloft 50 mg a day, Ativan and Haldol p.r.n., BuSpar 5 mg twice a day. We will add Seroquel 12.5 mg at 9:00 a.m. and 2 p.m. as a mood stabilizer. Reviewed drug interactions, risk/benefit ratio favors no further change. MAN George CRUZ MD DR: RICHARD/doug JOB#: [id number] / [id number]
[2017-01-22] MEDS: LEVOTHYROXINE 112 MCG TABLET PO SCH (06:23)
[2017-01-22 06:40] VITALS: BP 159/85
[2017-01-22] MEDS: ASPIRIN 325 MG TABLET PO SCH (08:29)
[2017-01-22] MEDS: busPIRone 5 MG TABLET. PO SCH ×2 (08:29→14:07)
[2017-01-22] MEDS: CYANOCOBALAMIN (VITAMIN B-12) 1,000 MCG/ML VIAL IM SCH (08:29)
[2017-01-22] MEDS: LISINOPRIL 10 MG TABLET PO SCH (08:29)
[2017-01-22] MEDS: SERTRALINE 50 MG TABLET. PO SCH (08:29)
[2017-01-22] MEDS: HALOPERIDOL 0.5 MG TABLET PO SCH ×2 (08:30→20:26)
[2017-01-22] MEDS: PANTOPRAZOLE 40 MG TABLET. PO SCH (08:30)
[2017-01-22] MEDS: SENNOSIDES/DOCUSATE 8.6/50MG TABLET. PO SCH ×2 (08:31→20:26)
[2017-01-22] MEDS: FLUTICASONE 50MCG/NASAL SPRAY 16GM BOTTLE. NS SCH (08:31)
[2017-01-22] MEDS: POLYETHYLENE GLYCOL 3350 17 GM PACKET. PO SCH (08:31)
[2017-01-22] MEDS: POLYVINYL ALCOHOL 1.4% OPHTH SOLUTION 15ML BOTTLE. OU SCH ×4 (08:31→21:09)
[2017-01-22] MEDS: DICYCLOMINE HCL 10 MG CAPSULE PO SCH ×3 (08:31→20:26)
[2017-01-22] MEDS: QUEtiapine 25 MG TABLET. PO SCH ×2 (08:32→14:07)
[2017-01-22] MEDS: POTASSIUM CHLORIDE 20 MEQ TABLET.ER. PO SCH (11:42)
[2017-01-22 16:33] VITALS: BP 129/84
[2017-01-22] MEDS: diazePAM 5 MG TABLET PO SCH (20:28)
--- NOTE | 2017-01-22 21:43 | PDOC ---
Exam Yossi Demential Exam: Yossi Note: Please also refer to the separate dictated note~for this date of service dictated separately.~Patient seen individually. Discussed the patient with Nursing staff reviewed the chart.~Reviewed interim history and current functioning. Reviewed vital signs,~Labs/ Radiology~and current medications noted below. Continue current treatment with the changes noted in the dictated addendum note Assessment: Vital Signs: Vital Signs Date Time Temp Pulse Resp B/P (MAP) Pulse Ox O2 Delivery O2 Flow Rate FiO2 01/22/17 16:33 96.8 81 18 129/84 (99) 94 01/17/17 16:20 Room Air I&O Intake and Output 01/23/17 07:00 Intake Total 720 ml Balance 720 ml Intake Oral 720 ml Current Medications: Meds: Current Medications Acetaminophen (Tylenol) 650 mg PRN Q6HRS PRN PO PAIN / TEMP; Start 01/16/17 at 17:15; Status UNV Multi-Ingredient Ointment (Analgesic [place]) 1 karime PRN QID PRN TP MUSCLE PAIN; Start 01/16/17 at 17:15; Status Cancel Al Hydroxide/Mg Hydroxide (Mylanta Plus Xs) 15 ml PRN AFTMEALHC PRN PO DYSPEPSIA; Start 01/16/17 at 17:15 Magnesium Hydroxide (Milk Of Magnesia) 2,400 mg PRN QHS PRN PO CONSTIPATION; Start 01/16/17 at 17:15 Acetaminophen (Tylenol) 650 mg PRN Q6HRS PRN PO PAIN / TEMP; Start 01/16/17 at 17:30 Aspirin (Lana Aspirin) 325 mg DAILY PO Last administered on 01/22/17 08:29; Start 01/17/17 at 09:00 Dicyclomine HCl (Bentyl) 10 mg TID PO Last administered on 01/22/17 20:26; Start 01/16/17 at 21:00 Fluticasone Propionate (Flonase) 1 spray DAILY NS Last administered on 08:31; Start 01/17/17 at 09:00 Guaifenesin (Robitussin) 100 mg PRN Q4HRS PRN PO COUGH; Start 01/16/17 at 17:30 Levothyroxine Sodium (Synthroid) 112 mcg DAILY07 PO Last administered on 06:23; Start 01/17/17 at 07:00 Lisinopril (Prinivil) 5 mg DAILY PO Last administered on 01/20/17 09:27; Start 01/17/17 at 09:00; Stop 01/20/17 at 15:25; Status DC Pantoprazole Sodium (Protonix) 40 mg DAILY PO Last administered on 01/22/17 08 :30; Start 01/17/17 at 09:00 Polyethylene Glycol (miraLAX) 17 gm DAILY PO Last administered on 01/22/17 08: 31; Start 01/17/17 at 09:00 Artificial Tears (Artificial Tears) 1 drop QID OU Last administered on 21:09; Start 01/16/17 at 21:00 Senna/Docusate Sodium (Senna Plus) 1 tab BID PO Last administered on 01/22/17 20:26; Start 01/16/17 at 21:00 Sucralfate (Carafate) 1 gm BIDBFRMEAL PO Last administered on 01/19/17 06:38; Start 01/17/17 at 07:30; Stop 01/19/17 at 10:48; Status DC Non-Formulary Medication 3 drop PRN Q1HR PRN SL SECRETIONS; Start 01/16/17 at 17:30; Status UNV Non-Formulary Medication 1 drop BID OU ; Start 01/16/17 at 21:00; Status UNV Non-Formulary Medication 1 karime PRN QID PRN TP MUSCLE PAIN; Start 01/16/17 at 17 :30; Status UNV Morphine Sulfate (Morphine Oral Solution) 5 mg PRN Q4HRS PRN PO MODERATE PAIN; Start 01/16/17 at 18:00 Haloperidol (Haldol) 0.25 mg BID PO Last administered on 01/22/17 20:26; Start 01/16/17 at 21:00 Haloperidol (Haldol) 0.5 mg PRN Q6HRS PRN PO ANXIETY / AGITATION; Start at 17:45 Lorazepam (Ativan Intensol) 1 mg PRN Q4HRS PRN PO ANXIETY / AGITATION Last administered on 01/17/17 00:41; Start 01/16/17 at 17:45 Diazepam (Valium) 10 mg HS PO Last administered on 01/16/17 22:31; Start 01/16 at 21:00; Stop 01/17/17 at 16:24; Status DC Escitalopram Oxalate (Lexapro) 20 mg DAILY PO Last administered on 01/17/17 09 :06; Start 01/17/17 at 09:00; Stop 01/17/17 at 19:09; Status DC Multi-Ingredient Ointment (Analgesic [place]) 1 karime PRN QID PRN TP MUSCLE PAIN; Start 01/16/17 at 18:00 Diazepam (Valium) 10 mg QHS PO Last administered on 01/21/17 19:24; Start 01/17/17 at 21:00; Stop 01/22/17 at 19:25; Status DC Sertraline HCl (Zoloft) 50 mg DAILY PO Last administered on 01/22/17 08:29; Start 01/18/17 at 09:00 Buspirone HCl (Buspar) 5 mg BID92 PO Last administered on 01/22/17 14:07; Start 01/19/17 at 09:00 Potassium Chloride (Klor-Con) 20 meq DAILYBFRLUN PO Last administered on 11:42; Start 01/19/17 at 11:30 Cyanocobalamin (Vitamin B-12) 1,000 mcg DAILY IM Last administered on 08:29; Start 01/20/17 at 09:00; Stop 01/24/17 at 08:59 Cyanocobalamin (Vitamin B-12) 1,000 mcg [id number] IM ; Start 02/16/17 at 09:00 Lisinopril (Prinivil) 10 mg DAILY PO Last administered on 01/22/17 08:29; Start 01/21/17 at 09:00 Quetiapine Fumarate (SEROquel) 12.5 mg BID@0900,1400 PO Last administered on 14:07; Start 01/22/17 at 09:00 Diazepam (Valium) 7.5 mg QHS PO Last administered on 01/22/17 20:28; Start at 21:00; Stop 01/26/17 at 21:00 Diazepam (Valium) 2.5 mg HS PO ; Start 01/27/17 at 21:00; Stop 01/31/17 at 21: 00 Active Scripts Active Reported Morphine Sulfate 20 Mg/5 Ml Solution 5 Mg PO PRN Q4HRS PRN Haloperidol 0.5 Mg Tablet 0.25 Mg PO BID Haloperidol 0.5 Mg Tablet 0.5 Mg PO PRN Q6HRS PRN Lisinopril 5 Mg Tablet 5 Mg PO DAILY Lorazepam Intensol (Lorazepam) 2 Mg/1 Ml Oral.conc 1 Mg PO PRN Q4HRS PRN Atropine 0.01%-Ns Eye Drops (Atropine Sulfate in 0.9% NaCl) 10 Ml Drops 3 Drop SL PRN Q1HR PRN Biofreeze (Menthol) 118 Ml Gel..ml. 1 [place] TP PRN QID PRN Artificial Tears (Polyvinyl Alcohol) 15 Ml Drops 1 Drop OU QID Refresh Tears (Carboxymethylcellulose Sodium) 15 Ml Drops 1 Drop OU BID Aspirin 325 Mg Tablet 325 Mg PO DAILY Levothyroxine Sodium 112 Mcg Tablet 112 Mcg PO DAILY07 Lexapro (Escitalopram Oxalate) 20 Mg Tablet 20 Mg PO DAILY Guaifenesin 100 Mg/5 Ml Liquid 100 Mg PO PRN Q4HRS PRN Protonix (Pantoprazole Sodium) 40 Mg Tablet.dr 40 Mg PO DAILY Senna S Tablet (Sennosides/Docusate Sodium) 1 Each Tablet 1 Tab PO BID Tylenol (Acetaminophen) 325 Mg Tablet 650 Mg PO PRN Q6HRS PRN Dicyclomine Hcl 10 Mg Capsule 10 Mg PO TID Valium (Diazepam) 10 Mg Tablet 10 Mg PO QHS Carafate (Sucralfate) 1 Gm Tablet 1 Gm PO BID Flonase (Fluticasone Propionate) 16 Gm [place].susp 1 Spr NS DAILY Miralax (Polyethylene Glycol 3350) 17 Gm Powd.pack 17 Gm PO DAILY Diagnosis: Problems: (1) Altered mental state (2) Anxiety disorder (3) Impulse control disorder (4) Alzheimer's dementia (5) Dementia, vascular, with depression (6) Dementia, vascular, with delusions (7) Dementia in Alzheimer's disease with depression (8) Dementia in Alzheimer's disease with delusions ROSMERY CRUZ MD Jan 22, 2017 21:43
[2017-01-23 06:15] VITALS: BP 139/89
[2017-01-23] MEDS: LEVOTHYROXINE 112 MCG TABLET PO SCH (06:40)
--- NOTE | 2017-01-23 07:52 | PN ---
DATE: 01/21/2017 PSYCHIATRIC PROGRESS NOTE This late entry for 11/21/2016 covers elements not covered in my initial note of 11/21/2016. SUBJECTIVE: I met with the patient evening of 11/21/2016. Overall, the patient remains confused, slept 7-1/4 hours previous evening, disorganized, compliant with medications, restless at times. REVIEW OF SYSTEMS: Ambulation impaired, in a Broda chair. No CV, , pulmonary, eye, ENT system symptoms on review. Reliability poor. MENTAL STATUS EXAM: Oriented to herself. Insight, judgment, recent and remote memory, attention, concentration, fund of knowledge poor, consistent with her diagnosis mentioned in my initial note. PLAN: Continue current psychotropics. Reviewed drug interactions. Risk/benefit ratio favors no further change. MAN George CRUZ MD DR: RICHARD/doug JOB#: [id number] / [id number]
[2017-01-23] MEDS: QUEtiapine 25 MG TABLET. PO SCH ×2 (08:46→13:14)
[2017-01-23] MEDS: PANTOPRAZOLE 40 MG TABLET. PO SCH (08:46)
[2017-01-23] MEDS: DICYCLOMINE HCL 10 MG CAPSULE PO SCH ×3 (08:46→19:31)
[2017-01-23] MEDS: CYANOCOBALAMIN (VITAMIN B-12) 1,000 MCG/ML VIAL IM SCH (08:46)
[2017-01-23] MEDS: busPIRone 5 MG TABLET. PO SCH ×2 (08:46→13:14)
[2017-01-23] MEDS: ASPIRIN 325 MG TABLET PO SCH (08:46)
[2017-01-23] MEDS: SENNOSIDES/DOCUSATE 8.6/50MG TABLET. PO SCH ×2 (08:46→19:29)
[2017-01-23] MEDS: SERTRALINE 50 MG TABLET. PO SCH (08:46)
[2017-01-23] MEDS: HALOPERIDOL 0.5 MG TABLET PO SCH ×2 (08:47→19:29)
[2017-01-23] MEDS: LISINOPRIL 10 MG TABLET PO SCH (08:47)
[2017-01-23] MEDS: POLYETHYLENE GLYCOL 3350 17 GM PACKET. PO SCH (08:48)
[2017-01-23] MEDS: POLYVINYL ALCOHOL 1.4% OPHTH SOLUTION 15ML BOTTLE. OU SCH ×4 (09:00→19:34)
[2017-01-23] MEDS: FLUTICASONE 50MCG/NASAL SPRAY 16GM BOTTLE. NS SCH (10:51)
[2017-01-23] MEDS: POTASSIUM CHLORIDE 20 MEQ TABLET.ER. PO SCH (11:32)
[2017-01-23 16:30] VITALS: BP 141/63
[2017-01-23] MEDS: diazePAM 5 MG TABLET PO SCH (19:34)
--- NOTE | 2017-01-23 21:41 | PDOC ---
Exam Yossi Demential Exam: Yossi Note: Please also refer to the separate dictated note~for this date of service dictated separately.~Patient seen individually. Discussed the patient with Nursing staff reviewed the chart.~Reviewed interim history and current functioning. Reviewed vital signs,~Labs/ Radiology~and current medications noted below. Continue current treatment with the changes noted in the dictated addendum note Assessment: Vital Signs: Vital Signs Date Time Temp Pulse Resp B/P (MAP) Pulse Ox O2 Delivery O2 Flow Rate FiO2 01/23/17 16:30 97.8 62 18 141/63 (89) 96 Room Air I&O Intake and Output 01/24/17 07:00 Intake Total 600 ml Balance 600 ml Intake Oral 600 ml # Bowel Movements 2 Current Medications: Meds: Current Medications Acetaminophen (Tylenol) 650 mg PRN Q6HRS PRN PO PAIN / TEMP; Start 01/16/17 at 17:15; Status UNV Multi-Ingredient Ointment (Analgesic [place]) 1 karime PRN QID PRN TP MUSCLE PAIN; Start 01/16/17 at 17:15; Status Cancel Al Hydroxide/Mg Hydroxide (Mylanta Plus Xs) 15 ml PRN AFTMEALHC PRN PO DYSPEPSIA; Start 01/16/17 at 17:15 Magnesium Hydroxide (Milk Of Magnesia) 2,400 mg PRN QHS PRN PO CONSTIPATION; Start 01/16/17 at 17:15 Acetaminophen (Tylenol) 650 mg PRN Q6HRS PRN PO PAIN / TEMP; Start 01/16/17 at 17:30 Aspirin (Lana Aspirin) 325 mg DAILY PO Last administered on 01/23/17 08:46; Start 01/17/17 at 09:00 Dicyclomine HCl (Bentyl) 10 mg TID PO Last administered on 01/23/17 19:31; Start 01/16/17 at 21:00 Fluticasone Propionate (Flonase) 1 spray DAILY NS Last administered on 10:51; Start 01/17/17 at 09:00 Guaifenesin (Robitussin) 100 mg PRN Q4HRS PRN PO COUGH; Start 01/16/17 at 17:30 Levothyroxine Sodium (Synthroid) 112 mcg DAILY07 PO Last administered on 06:40; Start 01/17/17 at 07:00 Lisinopril (Prinivil) 5 mg DAILY PO Last administered on 01/20/17 09:27; Start 01/17/17 at 09:00; Stop 01/20/17 at 15:25; Status DC Pantoprazole Sodium (Protonix) 40 mg DAILY PO Last administered on 01/23/17 08 :46; Start 01/17/17 at 09:00 Polyethylene Glycol (miraLAX) 17 gm DAILY PO Last administered on 01/23/17 08: 48; Start 01/17/17 at 09:00 Artificial Tears (Artificial Tears) 1 drop QID OU Last administered on 19:34; Start 01/16/17 at 21:00 Senna/Docusate Sodium (Senna Plus) 1 tab BID PO Last administered on 01/23/17 19:29; Start 01/16/17 at 21:00 Sucralfate (Carafate) 1 gm BIDBFRMEAL PO Last administered on 01/19/17 06:38; Start 01/17/17 at 07:30; Stop 01/19/17 at 10:48; Status DC Non-Formulary Medication 3 drop PRN Q1HR PRN SL SECRETIONS; Start 01/16/17 at 17:30; Status UNV Non-Formulary Medication 1 drop BID OU ; Start 01/16/17 at 21:00; Status UNV Non-Formulary Medication 1 karime PRN QID PRN TP MUSCLE PAIN; Start 01/16/17 at 17 :30; Status UNV Morphine Sulfate (Morphine Oral Solution) 5 mg PRN Q4HRS PRN PO MODERATE PAIN; Start 01/16/17 at 18:00 Haloperidol (Haldol) 0.25 mg BID PO Last administered on 01/23/17 19:29; Start 01/16/17 at 21:00 Haloperidol (Haldol) 0.5 mg PRN Q6HRS PRN PO ANXIETY / AGITATION; Start at 17:45 Lorazepam (Ativan Intensol) 1 mg PRN Q4HRS PRN PO ANXIETY / AGITATION Last administered on 01/17/17 00:41; Start 01/16/17 at 17:45 Diazepam (Valium) 10 mg HS PO Last administered on 01/16/17 22:31; Start 01/16 at 21:00; Stop 01/17/17 at 16:24; Status DC Escitalopram Oxalate (Lexapro) 20 mg DAILY PO Last administered on 01/17/17 09 :06; Start 01/17/17 at 09:00; Stop 01/17/17 at 19:09; Status DC Multi-Ingredient Ointment (Analgesic [place]) 1 karime PRN QID PRN TP MUSCLE PAIN; Start 01/16/17 at 18:00 Diazepam (Valium) 10 mg QHS PO Last administered on 01/21/17 19:24; Start 01/17/17 at 21:00; Stop 01/22/17 at 19:25; Status DC Sertraline HCl (Zoloft) 50 mg DAILY PO Last administered on 01/23/17 08:46; Start 01/18/17 at 09:00 Buspirone HCl (Buspar) 5 mg BID92 PO Last administered on 01/23/17 13:14; Start 01/19/17 at 09:00 Potassium Chloride (Klor-Con) 20 meq DAILYBFRLUN PO Last administered on 11:32; Start 01/19/17 at 11:30 Cyanocobalamin (Vitamin B-12) 1,000 mcg DAILY IM Last administered on 08:46; Start 01/20/17 at 09:00; Stop 01/24/17 at 08:59 Cyanocobalamin (Vitamin B-12) 1,000 mcg [id number] IM ; Start 02/16/17 at 09:00 Lisinopril (Prinivil) 10 mg DAILY PO Last administered on 01/23/17 08:47; Start 01/21/17 at 09:00 Quetiapine Fumarate (SEROquel) 12.5 mg BID@0900,1400 PO Last administered on 13:14; Start 01/22/17 at 09:00 Diazepam (Valium) 7.5 mg QHS PO Last administered on 01/23/17 19:34; Start at 21:00; Stop 01/26/17 at 21:00 Diazepam (Valium) 2.5 mg HS PO ; Start 01/27/17 at 21:00; Stop 01/31/17 at 21: 00 Active Scripts Active Reported Morphine Sulfate 20 Mg/5 Ml Solution 5 Mg PO PRN Q4HRS PRN Haloperidol 0.5 Mg Tablet 0.25 Mg PO BID Haloperidol 0.5 Mg Tablet 0.5 Mg PO PRN Q6HRS PRN Lisinopril 5 Mg Tablet 5 Mg PO DAILY Lorazepam Intensol (Lorazepam) 2 Mg/1 Ml Oral.conc 1 Mg PO PRN Q4HRS PRN Atropine 0.01%-Ns Eye Drops (Atropine Sulfate in 0.9% NaCl) 10 Ml Drops 3 Drop SL PRN Q1HR PRN Biofreeze (Menthol) 118 Ml Gel..ml. 1 Karime TP PRN QID PRN Artificial Tears (Polyvinyl Alcohol) 15 Ml Drops 1 Drop OU QID Refresh Tears (Carboxymethylcellulose Sodium) 15 Ml Drops 1 Drop OU BID Aspirin 325 Mg Tablet 325 Mg PO DAILY Levothyroxine Sodium 112 Mcg Tablet 112 Mcg PO DAILY07 Lexapro (Escitalopram Oxalate) 20 Mg Tablet 20 Mg PO DAILY Guaifenesin 100 Mg/5 Ml Liquid 100 Mg PO PRN Q4HRS PRN Protonix (Pantoprazole Sodium) 40 Mg Tablet.dr 40 Mg PO DAILY Senna S Tablet (Sennosides/Docusate Sodium) 1 Each Tablet 1 Tab PO BID Tylenol (Acetaminophen) 325 Mg Tablet 650 Mg PO PRN Q6HRS PRN Dicyclomine Hcl 10 Mg Capsule 10 Mg PO TID Valium (Diazepam) 10 Mg Tablet 10 Mg PO QHS Carafate (Sucralfate) 1 Gm Tablet 1 Gm PO BID Flonase (Fluticasone Propionate) 16 Gm [place].susp 1 Spr NS DAILY Miralax (Polyethylene Glycol 3350) 17 Gm Powd.pack 17 Gm PO DAILY Diagnosis: Problems: (1) Altered mental state (2) Anxiety disorder (3) Impulse control disorder (4) Alzheimer's dementia (5) Dementia, vascular, with depression (6) Dementia, vascular, 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
--- NOTE | 2017-01-23 23:50 | PN ---
DATE: 01/22/2017 PSYCHIATRIC PROGRESS NOTE This is a late entry for 01/22/2017, covers elements not covered in my initial note of 01/22/2017. SUBJECTIVE: I met with the patient the evening of 01/22/2017. The patient remains disorganized, drowsy, in the Broda chair, impaired ambulation. She was previously up ad gladis, but a fall risk. Slept 6-3/4 hours the previous evening. Daughter informed the staff that she usually sleeps until noon. REVIEW OF SYSTEMS: Ambulation impaired. No CV, , pulmonary, eye, ENT system symptoms on review. Gait unsteady. Reliability poor. MENTAL STATUS EXAM: Oriented to herself. Insight, judgment, recent and remote memory, attention, concentration, fund of knowledge poor, consistent with her diagnosis mentioned in my initial note. PLAN: The patient is on Valium 10 mg p.o. at bedtime. Given her age, history of falls, dementia, which is worsened with benzodiazepines, we will go ahead and taper it down to 7.5 mg a day for 5 days, 5 mg a day for 5 days, 2.5 mg a day for 5 days, then discontinue it. There is no history of seizure disorder. Maintain the rest of psychotropics. Reviewed drug interactions. Risk/benefit ratio favors no further change. ROSMERY CRUZ MD DR: RICHARD/doug JOB#: [id number] / [id number]
[2017-01-24] MEDS: PANTOPRAZOLE 40 MG TABLET. PO SCH (06:13)
[2017-01-24] MEDS: LEVOTHYROXINE 112 MCG TABLET PO SCH (06:15)
[2017-01-24 06:38] VITALS: BP 118/75
[2017-01-24] MEDS: POLYETHYLENE GLYCOL 3350 17 GM PACKET. PO SCH (08:36)
[2017-01-24] MEDS: POLYVINYL ALCOHOL 1.4% OPHTH SOLUTION 15ML BOTTLE. OU SCH ×6 (08:37→19:30)
[2017-01-24] MEDS: FLUTICASONE 50MCG/NASAL SPRAY 16GM BOTTLE. NS SCH ×2 (08:37→09:00)
[2017-01-24] MEDS: ASPIRIN 325 MG TABLET PO SCH (08:37)
[2017-01-24] MEDS: SENNOSIDES/DOCUSATE 8.6/50MG TABLET. PO SCH ×2 (08:38→19:28)
[2017-01-24] MEDS: DICYCLOMINE HCL 10 MG CAPSULE PO SCH ×3 (08:38→19:28)
[2017-01-24] MEDS: LISINOPRIL 10 MG TABLET PO SCH (08:38)
[2017-01-24] MEDS: HALOPERIDOL 0.5 MG TABLET PO SCH ×2 (08:38→19:30)
[2017-01-24] MEDS: SERTRALINE 50 MG TABLET. PO SCH (08:39)
[2017-01-24] MEDS: QUEtiapine 25 MG TABLET. PO SCH ×2 (08:39→13:45)
[2017-01-24] MEDS: busPIRone 5 MG TABLET. PO SCH ×2 (08:39→13:45)
[2017-01-24] MEDS: POTASSIUM CHLORIDE 20 MEQ TABLET.ER. PO SCH (12:06)
[2017-01-24 15:14] VITALS: BP 128/59
[2017-01-24] MEDS: diazePAM 5 MG TABLET PO SCH (19:30)
[2017-01-25 06:06] VITALS: BP 160/85
[2017-01-25] MEDS: LEVOTHYROXINE 112 MCG TABLET PO SCH (06:32)
[2017-01-25] MEDS: POLYVINYL ALCOHOL 1.4% OPHTH SOLUTION 15ML BOTTLE. OU SCH ×6 (09:00→20:03)
[2017-01-25] MEDS: FLUTICASONE 50MCG/NASAL SPRAY 16GM BOTTLE. NS SCH ×2 (09:00→09:32)
[2017-01-25] MEDS: HALOPERIDOL 0.5 MG TABLET PO SCH ×2 (09:30→20:00)
[2017-01-25] MEDS: ASPIRIN 325 MG TABLET PO SCH (09:30)
[2017-01-25] MEDS: SENNOSIDES/DOCUSATE 8.6/50MG TABLET. PO SCH ×2 (09:30→20:00)
[2017-01-25] MEDS: QUEtiapine 25 MG TABLET. PO SCH ×2 (09:30→13:34)
[2017-01-25] MEDS: POLYETHYLENE GLYCOL 3350 17 GM PACKET. PO SCH (09:31)
[2017-01-25] MEDS: busPIRone 5 MG TABLET. PO SCH ×2 (09:31→13:34)
[2017-01-25] MEDS: SERTRALINE 50 MG TABLET. PO SCH (09:31)
[2017-01-25] MEDS: PANTOPRAZOLE 40 MG TABLET. PO SCH (09:31)
[2017-01-25] MEDS: LISINOPRIL 10 MG TABLET PO SCH (09:31)
[2017-01-25] MEDS: DICYCLOMINE HCL 10 MG CAPSULE PO SCH ×3 (09:31→20:00)
[2017-01-25] MEDS: POTASSIUM CHLORIDE 20 MEQ TABLET.ER. PO SCH (12:03)
[2017-01-25 16:32] VITALS: BP 129/87
[2017-01-25] MEDS: diazePAM 5 MG TABLET PO SCH (20:05)
--- NOTE | 2017-01-25 20:06 | PDOC ---
Exam Note: Yossi Note: Please also refer to the separate dictated note~for this date of service dictated separately.~Patient seen individually. Discussed the patient with Nursing staff reviewed the chart.~Reviewed interim history and current functioning. Reviewed vital signs,~Labs/ Radiology~and current medications noted below. Continue current treatment with the changes noted in the dictated addendum note Assessment: Vital Signs: Vital Signs Date Time Temp Pulse Resp B/P (MAP) Pulse Ox O2 Delivery O2 Flow Rate FiO2 01/25/17 16:32 97.2 86 16 129/87 (101) 96 01/24/17 06:38 Room Air I&O Intake and Output 01/26/17 07:00 Intake Total 840 ml Balance 840 ml Intake Oral 840 ml Current Medications: Meds: Current Medications Acetaminophen (Tylenol) 650 mg PRN Q6HRS PRN PO PAIN / TEMP; Start 01/16/17 at 17:15; Status UNV Multi-Ingredient Ointment (Analgesic [place]) 1 karime PRN QID PRN TP MUSCLE PAIN; Start 01/16/17 at 17:15; Status Cancel Al Hydroxide/Mg Hydroxide (Mylanta Plus Xs) 15 ml PRN AFTMEALHC PRN PO DYSPEPSIA; Start 01/16/17 at 17:15 Magnesium Hydroxide (Milk Of Magnesia) 2,400 mg PRN QHS PRN PO CONSTIPATION; Start 01/16/17 at 17:15 Acetaminophen (Tylenol) 650 mg PRN Q6HRS PRN PO PAIN / TEMP; Start 01/16/17 at 17:30 Aspirin (Lana Aspirin) 325 mg DAILY PO Last administered on 01/25/17 09:30; Start 01/17/17 at 09:00 Dicyclomine HCl (Bentyl) 10 mg TID PO Last administered on 01/25/17 20:00; Start 01/16/17 at 21:00 Fluticasone Propionate (Flonase) 1 spray DAILY NS Last administered on 10:51; Start 01/17/17 at 09:00 Guaifenesin (Robitussin) 100 mg PRN Q4HRS PRN PO COUGH; Start 01/16/17 at 17:30 Levothyroxine Sodium (Synthroid) 112 mcg DAILY07 PO Last administered on 06:32; Start 01/17/17 at 07:00 Lisinopril (Prinivil) 5 mg DAILY PO Last administered on 01/20/17 09:27; Start 01/17/17 at 09:00; Stop 01/20/17 at 15:25; Status DC Pantoprazole Sodium (Protonix) 40 mg DAILY PO Last administered on 01/25/17 09:31; Start 01/17/17 at 09:00 Polyethylene Glycol (miraLAX) 17 gm DAILY PO Last administered on 01/25/17 09 :31; Start 01/17/17 at 09:00 Artificial Tears (Artificial Tears) 1 drop QID OU Last administered on 20:03; Start 01/16/17 at 21:00 Senna/Docusate Sodium (Senna Plus) 1 tab BID PO Last administered on 20:00; Start 01/16/17 at 21:00 Sucralfate (Carafate) 1 gm BIDBFRMEAL PO Last administered on 01/19/17 06:38; Start 01/17/17 at 07:30; Stop 01/19/17 at 10:48; Status DC Non-Formulary Medication 3 drop PRN Q1HR PRN SL SECRETIONS; Start 01/16/17 at 17:30; Status UNV Non-Formulary Medication 1 drop BID OU ; Start 01/16/17 at 21:00; Status UNV Non-Formulary Medication 1 karime PRN QID PRN TP MUSCLE PAIN; Start 01/16/17 at 17 :30; Status UNV Morphine Sulfate (Morphine Oral Solution) 5 mg PRN Q4HRS PRN PO MODERATE PAIN; Start 01/16/17 at 18:00 Haloperidol (Haldol) 0.25 mg BID PO Last administered on 01/25/17 20:00; Start 01/16/17 at 21:00 Haloperidol (Haldol) 0.5 mg PRN Q6HRS PRN PO ANXIETY / AGITATION; Start at 17:45 Lorazepam (Ativan Intensol) 1 mg PRN Q4HRS PRN PO ANXIETY / AGITATION Last administered on 01/17/17 00:41; Start 01/16/17 at 17:45 Diazepam (Valium) 10 mg HS PO Last administered on 01/16/17 22:31; Start 01/16 at 21:00; Stop 01/17/17 at 16:24; Status DC Escitalopram Oxalate (Lexapro) 20 mg DAILY PO Last administered on 01/17/17 09 :06; Start 01/17/17 at 09:00; Stop 01/17/17 at 19:09; Status DC Multi-Ingredient Ointment (Analgesic [place]) 1 karime PRN QID PRN TP MUSCLE PAIN; Start 01/16/17 at 18:00 Diazepam (Valium) 10 mg QHS PO Last administered on 01/21/17 19:24; Start 01/17/17 at 21:00; Stop 01/22/17 at 19:25; Status DC Sertraline HCl (Zoloft) 50 mg DAILY PO Last administered on 01/25/17 09:31; Start 01/18/17 at 09:00 Buspirone HCl (Buspar) 5 mg BID92 PO Last administered on 01/25/17 13:34; Start 01/19/17 at 09:00 Potassium Chloride (Klor-Con) 20 meq DAILYBFRLUN PO Last administered on 12:03; Start 01/19/17 at 11:30 Cyanocobalamin (Vitamin B-12) 1,000 mcg DAILY IM Last administered on 08:46; Start 01/20/17 at 09:00; Stop 01/24/17 at 09:00; Status DC Cyanocobalamin (Vitamin B-12) 1,000 mcg [id number] IM ; Start 02/16/17 at 09:00 Lisinopril (Prinivil) 10 mg DAILY PO Last administered on 01/25/17 09:31; Start 01/21/17 at 09:00 Quetiapine Fumarate (SEROquel) 12.5 mg BID@0900,1400 PO Last administered on 13:34; Start 01/22/17 at 09:00 Diazepam (Valium) 7.5 mg QHS PO Last administered on 01/24/17 19:30; Start at 21:00; Stop 01/26/17 at 21:00 Diazepam (Valium) 2.5 mg HS PO ; Start 01/27/17 at 21:00; Stop 01/27/17 at 21: 00; Status DC Diazepam (Valium) 5 mg QHS PO ; Start 01/27/17 at 21:00; Stop 01/31/17 at 23: 00 Diazepam (Valium) 2.5 mg QHS PO ; Start 02/01/17 at 21:00; Stop 02/05/17 at 23 :00 Diazepam (Valium) 2 mg QHS PO ; Start 02/06/17 at 21:00; Stop 02/10/17 at 23: 00 Diazepam (Valium) 1 mg QHS PO ; Start 02/11/17 at 21:00; Stop 02/16/17 at 23:00 Active Scripts Active Reported Morphine Sulfate 20 Mg/5 Ml Solution 5 Mg PO PRN Q4HRS PRN Haloperidol 0.5 Mg Tablet 0.25 Mg PO BID Haloperidol 0.5 Mg Tablet 0.5 Mg PO PRN Q6HRS PRN Lisinopril 5 Mg Tablet 5 Mg PO DAILY Lorazepam Intensol (Lorazepam) 2 Mg/1 Ml Oral.conc 1 Mg PO PRN Q4HRS PRN Atropine 0.01%-Ns Eye Drops (Atropine Sulfate in 0.9% NaCl) 10 Ml Drops 3 Drop SL PRN Q1HR PRN Biofreeze (Menthol) 118 Ml Gel..ml. 1 Kar[place] TP PRN QID PRN Artificial Tears (Polyvinyl Alcohol) 15 Ml Drops 1 Drop OU QID Refresh Tears (Carboxymethylcellulose Sodium) 15 Ml Drops 1 Drop OU BID Aspirin 325 Mg Tablet 325 Mg PO DAILY Levothyroxine Sodium 112 Mcg Tablet 112 Mcg PO DAILY07 Lexapro (Escitalopram Oxalate) 20 Mg Tablet 20 Mg PO DAILY Guaifenesin 100 Mg/5 Ml Liquid 100 Mg PO PRN Q4HRS PRN Protonix (Pantoprazole Sodium) 40 Mg Tablet.dr 40 Mg PO DAILY Senna S Tablet (Sennosides/Docusate Sodium) 1 Each Tablet 1 Tab PO BID Tylenol (Acetaminophen) 325 Mg Tablet 650 Mg PO PRN Q6HRS PRN Dicyclomine Hcl 10 Mg Capsule 10 Mg PO TID Valium (Diazepam) 10 Mg Tablet 10 Mg PO QHS Carafate (Sucralfate) 1 Gm Tablet 1 Gm PO BID Flonase (Fluticasone Propionate) 16 Gm [place].susp 1 Spr NS DAILY Miralax (Polyethylene Glycol 3350) 17 Gm Powd.pack 17 Gm PO DAILY I have reviewed the current psychotropics carefully including drug interactions. Risk benefit ratio favors no change other than as noted in my dictated progress note. 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
--- NOTE | 2017-01-26 03:16 | PN ---
DATE: 01/24/2017 PSYCHIATRIC PROGRESS NOTE This is a late entry for date of service 01/24/2017, covers the elements not covered in my initial note of 01/24/2017. SUBJECTIVE: I met with the patient evening of 01/24/2017 and she was staffed at a treatment team meeting with the entire team morning of 01/24/2017 with entire staff and the patient's daughter, Julianne Ayala attending. Lengthy discussions about her history, diagnosis, progress, current medications, sleeping 6-7 hours, appetite 70%, compliant with medications, has PT, OT. REVIEW OF SYSTEMS: Ambulation impaired. No CV, , pulmonary, eye, ENT system symptoms on review. She is in a Broda chair. MENTAL STATUS EXAM: Oriented to herself. Insight, judgment, recent and remote memory, attention, concentration, fund of knowledge poor, consistent with her diagnosis mentioned in my initial note. PLAN: Continue current psychotropics, she was having some hallucinations vp [employer]. We will monitor this. Reviewed drug interactions, risk/benefit ratio favors no further change. ROSMERY CRUZ MD DR: RICHARD/doug JOB#: [id number] / [id number]
--- NOTE | 2017-01-26 03:37 | PN ---
DATE: 01/23/2017 PSYCHIATRIC PROGRESS NOTE This is a late entry for 01/23/2017, covers the elements not covered in my initial note of 01/23/2017. SUBJECTIVE: I met with the patient the evening of 01/23/2017. The patient slept 7 hours, remains confused and less drowsy. REVIEW OF SYSTEMS: Ambulation impaired, in a Broda chair. No CV, , pulmonary, eye, ENT system symptoms on review. MENTAL STATUS EXAM: Oriented to herself. Insight, judgment, recent and remote memory, attention, concentration, fund of knowledge poor, consistent with her diagnosis mentioned in my initial note. PLAN: Continue current psychotropics. Reviewed drug interactions, risk/benefit ratio favors no further change. ROSMERY CRUZ MD DR: RICHARD/doug JOB#: [id number] / [id number]
[2017-01-26] MEDS: LEVOTHYROXINE 112 MCG TABLET PO SCH (05:39)
[2017-01-26 06:02] VITALS: BP 144/71
[2017-01-26 06:38] LABS: BASO # 0.1 x10^3/uL (0.0-0.2); BASO % 2 % (0-3); EOS # 0.2 x10^3/uL (0.0-0.7); EOS % 3 % (0-3); HEMATOCRIT 33.7 % (36.0-47.0); HEMOGLOBIN 11.2 g/dL (12.0-15.5); LYMPH # 1.5 x10^3/uL (1.0-4.8); LYMPH % 25 % (24-48); MEAN CORPUSCULAR HEMOGLOBIN 31 pg (25-35); MEAN CORPUSCULAR HGB CONC 33 g/dL (31-37); MEAN CORPUSCULAR VOLUME 92 fL (79-100); MONO # 0.5 x10^3/uL (0.0-1.1); MONO % 9 % (0-9); NEUT # 3.6 x10^3uL (1.8-7.7); NEUT % 61 % (31-73); PLATELET COUNT 216 x10^3/uL (140-400); RED BLOOD COUNT 3.66 x10^6/uL (3.50-5.40); RED CELL DISTRIBUTION WIDTH 15.4 % (11.5-14.5); WHITE BLOOD COUNT 5.9 x10^3/uL (4.0-11.0)
[2017-01-26 06:58] LABS: ALBUMIN 2.8 g/dL (3.4-5.0); ALBUMIN/GLOBULIN RATIO 0.8 (1.0-1.7); CALCIUM 8.8 mg/dL (8.5-10.1); CREATININE 0.9 mg/dL (0.6-1.0); GFR 59.8; POTASSIUM 4.3 mmol/L (3.5-5.1); TOTAL BILIRUBIN 0.3 mg/dL (0.2-1.0); TOTAL PROTEIN 6.3 g/dL (6.4-8.2)
[2017-01-26] MEDS: QUEtiapine 25 MG TABLET. PO SCH ×2 (08:52→11:47)
[2017-01-26] MEDS: PANTOPRAZOLE 40 MG TABLET. PO SCH (08:53)
[2017-01-26] MEDS: SENNOSIDES/DOCUSATE 8.6/50MG TABLET. PO SCH ×2 (08:53→19:57)
[2017-01-26] MEDS: DICYCLOMINE HCL 10 MG CAPSULE PO SCH ×3 (08:53→19:56)
[2017-01-26] MEDS: SERTRALINE 50 MG TABLET. PO SCH (08:53)
[2017-01-26] MEDS: HALOPERIDOL 0.5 MG TABLET PO SCH ×2 (08:53→19:57)
[2017-01-26] MEDS: POTASSIUM CHLORIDE 20 MEQ TABLET.ER. PO SCH (08:53)
[2017-01-26] MEDS: LISINOPRIL 10 MG TABLET PO SCH (08:54)
[2017-01-26] MEDS: busPIRone 5 MG TABLET. PO SCH ×2 (08:54→11:48)
[2017-01-26] MEDS: POLYETHYLENE GLYCOL 3350 17 GM PACKET. PO SCH (08:54)
[2017-01-26] MEDS: ASPIRIN 325 MG TABLET PO SCH (08:54)
[2017-01-26] MEDS: POLYVINYL ALCOHOL 1.4% OPHTH SOLUTION 15ML BOTTLE. OU SCH ×5 (08:56→21:00)
[2017-01-26] MEDS: FLUTICASONE 50MCG/NASAL SPRAY 16GM BOTTLE. NS SCH (08:56)
[2017-01-26 15:59] VITALS: BP 92/60
--- NOTE | 2017-01-26 19:51 | PDOC ---
Exam Note: Yossi Note: Please also refer to the separate dictated note~for this date of service dictated separately.~Patient seen individually. Discussed the patient with Nursing staff reviewed the chart.~Reviewed interim history and current functioning. Reviewed vital signs,~Labs/ Radiology~and current medications noted below. Continue current treatment with the changes noted in the dictated addendum note Assessment: Vital Signs: Vital Signs Date Time Temp Pulse Resp B/P (MAP) Pulse Ox O2 Delivery O2 Flow Rate FiO2 01/26/17 15:59 96.6 82 18 92/60 (71) 96 Room Air I&O Intake and Output 01/27/17 07:00 Intake Total 600 ml Balance 600 ml Intake Oral 600 ml # Bowel Movements 1 Labs: Laboratory Tests Test 01/26/17 05:54 White Blood Count 5.9 x10^3/uL (4.0-11.0) Red Blood Count 3.66 x10^6/uL (3.50-5.40) Hemoglobin 11.2 g/dL (12.0-15.5) L Hematocrit 33.7 % (36.0-47.0) L Mean Corpuscular Volume 92 fL (79-100) Mean Corpuscular Hemoglobin 31 pg (25-35) Mean Corpuscular Hemoglobin Concent 33 g/dL (31-37) Red Cell Distribution Width 15.4 % (11.5-14.5) H Platelet Count 216 x10^3/uL (140-400) Neutrophils (%) (Auto) 61 % (31-73) Lymphocytes (%) (Auto) 25 % (24-48) Monocytes (%) (Auto) 9 % (0-9) Eosinophils (%) (Auto) 3 % (0-3) Basophils (%) (Auto) 2 % (0-3) Neutrophils # (Auto) 3.6 x10^3uL (1.8-7.7) Lymphocytes # (Auto) 1.5 x10^3/uL (1.0-4.8) Monocytes # (Auto) 0.5 x10^3/uL (0.0-1.1) Eosinophils # (Auto) 0.2 x10^3/uL (0.0-0.7) Basophils # (Auto) 0.1 x10^3/uL (0.0-0.2) Sodium Level 140 mmol/L (136-145) Potassium Level 4.3 mmol/L (3.5-5.1) Chloride Level 106 mmol/L (98-107) Carbon Dioxide Level 26 mmol/L (21-32) Anion Gap 8 (6-14) Blood Urea Nitrogen 18 mg/dL (7-20) Creatinine 0.9 mg/dL (0.6-1.0) Estimated GFR (Cockcroft-Gault) 59.8 BUN/Creatinine Ratio 20 (6-20) Glucose Level 90 mg/dL (70-99) Calcium Level 8.8 mg/dL (8.5-10.1) Total Bilirubin 0.3 mg/dL (0.2-1.0) Aspartate Amino Transferase (AST) 17 U/L (15-37) Alanine Aminotransferase (ALT) 13 U/L (14-59) L Alkaline Phosphatase 103 U/L (46-116) Total Protein 6.3 g/dL (6.4-8.2) L Albumin 2.8 g/dL (3.4-5.0) L Albumin/Globulin Ratio 0.8 (1.0-1.7) L Current Medications: Meds: Current Medications Acetaminophen (Tylenol) 650 mg PRN Q6HRS PRN PO PAIN / TEMP; Start 01/16/17 at 17:15; Status UNV Multi-Ingredient Ointment (Analgesic [place]) 1 karime PRN QID PRN TP MUSCLE PAIN; Start 01/16/17 at 17:15; Status Cancel Al Hydroxide/Mg Hydroxide (Mylanta Plus Xs) 15 ml PRN AFTMEALHC PRN PO DYSPEPSIA; Start 01/16/17 at 17:15 Magnesium Hydroxide (Milk Of Magnesia) 2,400 mg PRN QHS PRN PO CONSTIPATION; Start 01/16/17 at 17:15 Acetaminophen (Tylenol) 650 mg PRN Q6HRS PRN PO PAIN / TEMP; Start 01/16/17 at 17:30 Aspirin (Lana Aspirin) 325 mg DAILY PO Last administered on 01/26/17 08:54; Start 01/17/17 at 09:00 Dicyclomine HCl (Bentyl) 10 mg TID PO Last administered on 01/26/17 11:47; Start 01/16/17 at 21:00 Fluticasone Propionate (Flonase) 1 spray DAILY NS Last administered on 08:56; Start 01/17/17 at 09:00 Guaifenesin (Robitussin) 100 mg PRN Q4HRS PRN PO COUGH; Start 01/16/17 at 17:30 Levothyroxine Sodium (Synthroid) 112 mcg DAILY07 PO Last administered on 05:39; Start 01/17/17 at 07:00 Lisinopril (Prinivil) 5 mg DAILY PO Last administered on 01/20/17 09:27; Start 01/17/17 at 09:00; Stop 01/20/17 at 15:25; Status DC Pantoprazole Sodium (Protonix) 40 mg DAILY PO Last administered on 01/26/17 08:53; Start 01/17/17 at 09:00 Polyethylene Glycol (miraLAX) 17 gm DAILY PO Last administered on 01/26/17 08 :54; Start 01/17/17 at 09:00 Artificial Tears (Artificial Tears) 1 drop QID OU Last administered on 17:00; Start 01/16/17 at 21:00 Senna/Docusate Sodium (Senna Plus) 1 tab BID PO Last administered on 08:53; Start 01/16/17 at 21:00 Sucralfate (Carafate) 1 gm BIDBFRMEAL PO Last administered on 01/19/17 06:38; Start 01/17/17 at 07:30; Stop 01/19/17 at 10:48; Status DC Non-Formulary Medication 3 drop PRN Q1HR PRN SL SECRETIONS; Start 01/16/17 at 17:30; Status UNV Non-Formulary Medication 1 drop BID OU ; Start 01/16/17 at 21:00; Status UNV Non-Formulary Medication 1 karime PRN QID PRN TP MUSCLE PAIN; Start 01/16/17 at 17 :30; Status UNV Morphine Sulfate (Morphine Oral Solution) 5 mg PRN Q4HRS PRN PO MODERATE PAIN; Start 01/16/17 at 18:00 Haloperidol (Haldol) 0.25 mg BID PO Last administered on 01/26/17 08:53; Start 01/16/17 at 21:00 Haloperidol (Haldol) 0.5 mg PRN Q6HRS PRN PO ANXIETY / AGITATION; Start at 17:45 Lorazepam (Ativan Intensol) 1 mg PRN Q4HRS PRN PO ANXIETY / AGITATION Last administered on 01/17/17 00:41; Start 01/16/17 at 17:45 Diazepam (Valium) 10 mg HS PO Last administered on 01/16/17 22:31; Start 01/16 at 21:00; Stop 01/17/17 at 16:24; Status DC Escitalopram Oxalate (Lexapro) 20 mg DAILY PO Last administered on 01/17/17 09 :06; Start 01/17/17 at 09:00; Stop 01/17/17 at 19:09; Status DC Multi-Ingredient Ointment (Analgesic [place]) 1 karime PRN QID PRN TP MUSCLE PAIN; Start 01/16/17 at 18:00 Diazepam (Valium) 10 mg QHS PO Last administered on 01/21/17 19:24; Start 01/17/17 at 21:00; Stop 01/22/17 at 19:25; Status DC Sertraline HCl (Zoloft) 50 mg DAILY PO Last administered on 01/26/17 08:53; Start 01/18/17 at 09:00 Buspirone HCl (Buspar) 5 mg BID92 PO Last administered on 01/26/17 11:48; Start 01/19/17 at 09:00 Potassium Chloride (Klor-Con) 20 meq DAILYBFRLUN PO Last administered on 08:53; Start 01/19/17 at 11:30 Cyanocobalamin (Vitamin B-12) 1,000 mcg DAILY IM Last administered on 08:46; Start 01/20/17 at 09:00; Stop 01/24/17 at 09:00; Status DC Cyanocobalamin (Vitamin B-12) 1,000 mcg [id number] IM ; Start 02/16/17 at 09:00 Lisinopril (Prinivil) 10 mg DAILY PO Last administered on 01/26/17 08:54; Start 01/21/17 at 09:00 Quetiapine Fumarate (SEROquel) 12.5 mg BID@0900,1400 PO Last administered on 11:47; Start 01/22/17 at 09:00 Diazepam (Valium) 7.5 mg QHS PO Last administered on 01/25/17t 20:05; Start 01/22/17 at 21:00; Stop 01/26/17 at 21:00 Diazepam (Valium) 2.5 mg HS PO ; Start 01/27/17 at 21:00; Stop 01/27/17 at 21: 00; Status DC Diazepam (Valium) 5 mg QHS PO ; Start 01/27/17 at 21:00; Stop 01/31/17 at 23: 00 Diazepam (Valium) 2.5 mg QHS PO ; Start 02/01/17 at 21:00; Stop 02/05/17 at 23 :00 Diazepam (Valium) 2 mg QHS PO ; Start 02/06/17 at 21:00; Stop 02/10/17 at 23: 00 Diazepam (Valium) 1 mg QHS PO ; Start 02/11/17 at 21:00; Stop 02/16/17 at 23:00 Active Scripts Active Reported Morphine Sulfate 20 Mg/5 Ml Solution 5 Mg PO PRN Q4HRS PRN Haloperidol 0.5 Mg Tablet 0.25 Mg PO BID Haloperidol 0.5 Mg Tablet 0.5 Mg PO PRN Q6HRS PRN Lisinopril 5 Mg Tablet 5 Mg PO DAILY Lorazepam Intensol (Lorazepam) 2 Mg/1 Ml Oral.conc 1 Mg PO PRN Q4HRS PRN Atropine 0.01%-Ns Eye Drops (Atropine Sulfate in 0.9% NaCl) 10 Ml Drops 3 Drop SL PRN Q1HR PRN Biofreeze (Menthol) 118 Ml Gel..ml. 1 Karime TP PRN QID PRN Artificial Tears (Polyvinyl Alcohol) 15 Ml Drops 1 Drop OU QID Refresh Tears (Carboxymethylcellulose Sodium) 15 Ml Drops 1 Drop OU BID Aspirin 325 Mg Tablet 325 Mg PO DAILY Levothyroxine Sodium 112 Mcg Tablet 112 Mcg PO DAILY07 Lexapro (Escitalopram Oxalate) 20 Mg Tablet 20 Mg PO DAILY Guaifenesin 100 Mg/5 Ml Liquid 100 Mg PO PRN Q4HRS PRN Protonix (Pantoprazole Sodium) 40 Mg Tablet.dr 40 Mg PO DAILY Senna S Tablet (Sennosides/Docusate Sodium) 1 Each Tablet 1 Tab PO BID Tylenol (Acetaminophen) 325 Mg Tablet 650 Mg PO PRN Q6HRS PRN Dicyclomine Hcl 10 Mg Capsule 10 Mg PO TID Valium (Diazepam) 10 Mg Tablet 10 Mg PO QHS Carafate (Sucralfate) 1 Gm Tablet 1 Gm PO BID Flonase (Fluticasone Propionate) 16 Gm [place].susp 1 Spr NS DAILY Miralax (Polyethylene Glycol 3350) 17 Gm Powd.pack 17 Gm PO DAILY I have reviewed the current psychotropics carefully including drug interactions. Risk benefit ratio favors no change other than as noted in my dictated progress note. 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
[2017-01-26] MEDS: diazePAM 5 MG TABLET PO SCH (19:58)
[2017-01-27 06:12] VITALS: BP 105/55
[2017-01-27] MEDS: LEVOTHYROXINE 112 MCG TABLET PO SCH (06:22)
--- NOTE | 2017-01-27 06:48 | PN ---
DATE: 01/25/2017 This is a late entry for date of service 01/25/2017 and covers elements not covered in my initial note of 01/25/2017. SUBJECTIVE: I met with the patient evening of 01/25/2017. The patient remains confused, delusional, believes she is in a store trying to find her sister to go shopping. REVIEW OF SYSTEMS: Ambulation impaired, in a Broda chair. No CV, , pulmonary, eye system symptoms on review. MENTAL STATUS EXAM: Oriented to herself. Insight, judgment, recent and remote memory, attention, concentration, fund of knowledge poor, consistent with her diagnosis as mentioned in my initial note. PLAN: Continue current psychotropics. MAN George CRUZ MD DR: RICHARD/doug JOB#: [id number] / [id number]
[2017-01-27] MEDS: busPIRone 5 MG TABLET. PO SCH ×2 (07:57→13:12)
[2017-01-27] MEDS: ASPIRIN 325 MG TABLET PO SCH (07:57)
[2017-01-27] MEDS: SENNOSIDES/DOCUSATE 8.6/50MG TABLET. PO SCH ×2 (07:58→19:42)
[2017-01-27] MEDS: QUEtiapine 25 MG TABLET. PO SCH ×2 (07:58→13:12)
[2017-01-27] MEDS: SERTRALINE 50 MG TABLET. PO SCH (07:59)
[2017-01-27] MEDS: HALOPERIDOL 0.5 MG TABLET PO SCH ×2 (07:59→19:42)
[2017-01-27] MEDS: LISINOPRIL 10 MG TABLET PO SCH (08:00)
[2017-01-27] MEDS: DICYCLOMINE HCL 10 MG CAPSULE PO SCH ×3 (08:00→19:41)
[2017-01-27] MEDS: POLYETHYLENE GLYCOL 3350 17 GM PACKET. PO SCH (08:00)
[2017-01-27] MEDS: FLUTICASONE 50MCG/NASAL SPRAY 16GM BOTTLE. NS SCH (08:01)
[2017-01-27] MEDS: PANTOPRAZOLE 40 MG TABLET. PO SCH (08:01)
[2017-01-27] MEDS: POLYVINYL ALCOHOL 1.4% OPHTH SOLUTION 15ML BOTTLE. OU SCH ×4 (08:01→19:41)
[2017-01-27] MEDS: POTASSIUM CHLORIDE 20 MEQ TABLET.ER. PO SCH (13:12)
[2017-01-27 15:59] VITALS: BP 94/64
[2017-01-27] MEDS: diazePAM 5 MG TABLET PO SCH (19:44)
--- NOTE | 2017-01-27 19:51 | PDOC ---
Exam Note: Yossi Note: Please also refer to the separate dictated note~for this date of service dictated separately.~Patient seen individually. Discussed the patient with Nursing staff reviewed the chart.~Reviewed interim history and current functioning. Reviewed vital signs,~Labs/ Radiology~and current medications noted below. Continue current treatment with the changes noted in the dictated addendum note Assessment: Vital Signs: Vital Signs Date Time Temp Pulse Resp B/P (MAP) Pulse Ox O2 Delivery O2 Flow Rate FiO2 01/27/17 15:59 97.8 100 18 94/64 (74) 94 Room Air 01/27/17 06:12 20.0 I&O Intake and Output 01/28/17 07:00 Intake Total 480 ml Balance 480 ml Intake Oral 480 ml Current Medications: Meds: Current Medications Acetaminophen (Tylenol) 650 mg PRN Q6HRS PRN PO PAIN / TEMP; Start 01/16/17 at 17:15; Status UNV Multi-Ingredient Ointment (Analgesic [place]) 1 karime PRN QID PRN TP MUSCLE PAIN; Start 01/16/17 at 17:15; Status Cancel Al Hydroxide/Mg Hydroxide (Mylanta Plus Xs) 15 ml PRN AFTMEALHC PRN PO DYSPEPSIA; Start 01/16/17 at 17:15 Magnesium Hydroxide (Milk Of Magnesia) 2,400 mg PRN QHS PRN PO CONSTIPATION; Start 01/16/17 at 17:15 Acetaminophen (Tylenol) 650 mg PRN Q6HRS PRN PO PAIN / TEMP; Start 01/16/17 at 17:30 Aspirin (Lana Aspirin) 325 mg DAILY PO Last administered on 01/27/17 07:57; Start 01/17/17 at 09:00 Dicyclomine HCl (Bentyl) 10 mg TID PO Last administered on 01/27/17 19:41; Start 01/16/17 at 21:00 Fluticasone Propionate (Flonase) 1 spray DAILY NS Last administered on 08:56; Start 01/17/17 at 09:00 Guaifenesin (Robitussin) 100 mg PRN Q4HRS PRN PO COUGH; Start 01/16/17 at 17:30 Levothyroxine Sodium (Synthroid) 112 mcg DAILY07 PO Last administered on 06:22; Start 01/17/17 at 07:00 Lisinopril (Prinivil) 5 mg DAILY PO Last administered on 01/20/17 09:27; Start 01/17/17 at 09:00; Stop 01/20/17 at 15:25; Status DC Pantoprazole Sodium (Protonix) 40 mg DAILY PO Last administered on 01/27/17 08:01; Start 01/17/17 at 09:00 Polyethylene Glycol (miraLAX) 17 gm DAILY PO Last administered on 01/27/17 08 :00; Start 01/17/17 at 09:00 Artificial Tears (Artificial Tears) 1 drop QID OU Last administered on 19:41; Start 01/16/17 at 21:00 Senna/Docusate Sodium (Senna Plus) 1 tab BID PO Last administered on 19:42; Start 01/16/17 at 21:00 Sucralfate (Carafate) 1 gm BIDBFRMEAL PO Last administered on 01/19/17 06:38; Start 01/17/17 at 07:30; Stop 01/19/17 at 10:48; Status DC Non-Formulary Medication 3 drop PRN Q1HR PRN SL SECRETIONS; Start 01/16/17 at 17:30; Status UNV Non-Formulary Medication 1 drop BID OU ; Start 01/16/17 at 21:00; Status UNV Non-Formulary Medication 1 karime PRN QID PRN TP MUSCLE PAIN; Start 01/16/17 at 17 :30; Status UNV Morphine Sulfate (Morphine Oral Solution) 5 mg PRN Q4HRS PRN PO MODERATE PAIN; Start 01/16/17 at 18:00 Haloperidol (Haldol) 0.25 mg BID PO Last administered on 01/27/17 19:42; Start 01/16/17 at 21:00 Haloperidol (Haldol) 0.5 mg PRN Q6HRS PRN PO ANXIETY / AGITATION; Start at 17:45 Lorazepam (Ativan Intensol) 1 mg PRN Q4HRS PRN PO ANXIETY / AGITATION Last administered on 01/17/17 00:41; Start 01/16/17 at 17:45 Diazepam (Valium) 10 mg HS PO Last administered on 01/16/17 22:31; Start 01/16 at 21:00; Stop 01/17/17 at 16:24; Status DC Escitalopram Oxalate (Lexapro) 20 mg DAILY PO Last administered on 01/17/17 09 :06; Start 01/17/17 at 09:00; Stop 01/17/17 at 19:09; Status DC Multi-Ingredient Ointment (Analgesic [place]) 1 karime PRN QID PRN TP MUSCLE PAIN; Start 01/16/17 at 18:00 Diazepam (Valium) 10 mg QHS PO Last administered on 01/21/17 19:24; Start 01/17/17 at 21:00; Stop 01/22/17 at 19:25; Status DC Sertraline HCl (Zoloft) 50 mg DAILY PO Last administered on 01/27/17 07:59; Start 01/18/17 at 09:00 Buspirone HCl (Buspar) 5 mg BID92 PO Last administered on 01/27/17 13:12; Start 01/19/17 at 09:00 Potassium Chloride (Klor-Con) 20 meq DAILYBFRLUN PO Last administered on 13:12; Start 01/19/17 at 11:30 Cyanocobalamin (Vitamin B-12) 1,000 mcg DAILY IM Last administered on 08:46; Start 01/20/17 at 09:00; Stop 01/24/17 at 09:00; Status DC Cyanocobalamin (Vitamin B-12) 1,000 mcg [id number] IM ; Start 02/16/17 at 09:00 Lisinopril (Prinivil) 10 mg DAILY PO Last administered on 01/26/17 08:54; Start 01/21/17 at 09:00 Quetiapine Fumarate (SEROquel) 12.5 mg BID@0900,1400 PO Last administered on 13:12; Start 01/22/17 at 09:00 Diazepam (Valium) 7.5 mg QHS PO Last administered on 01/26/17 19:58; Start 01/22/17 at 21:00; Stop 01/26/17 at 21:00; Status DC Diazepam (Valium) 2.5 mg HS PO ; Start 01/27/17 at 21:00; Stop 01/27/17 at 21: 00; Status DC Diazepam (Valium) 5 mg QHS PO Last administered on 01/27/17t 19:44; Start 03/03 at 21:00; Stop 01/31/17 at 23:00 Diazepam (Valium) 2.5 mg QHS PO ; Start 02/01/17 at 21:00; Stop 02/05/17 at 23 :00 Diazepam (Valium) 2 mg QHS PO ; Start 02/06/17 at 21:00; Stop 02/10/17 at 23: 00 Diazepam (Valium) 1 mg QHS PO ; Start 02/11/17 at 21:00; Stop 02/16/17 at 23:00 Active Scripts Active Reported Morphine Sulfate 20 Mg/5 Ml Solution 5 Mg PO PRN Q4HRS PRN Haloperidol 0.5 Mg Tablet 0.25 Mg PO BID Haloperidol 0.5 Mg Tablet 0.5 Mg PO PRN Q6HRS PRN Lisinopril 5 Mg Tablet 5 Mg PO DAILY Lorazepam Intensol (Lorazepam) 2 Mg/1 Ml Oral.conc 1 Mg PO PRN Q4HRS PRN Atropine 0.01%-Ns Eye Drops (Atropine Sulfate in 0.9% NaCl) 10 Ml Drops 3 Drop SL PRN Q1HR PRN Biofreeze (Menthol) 118 Ml Gel..ml. 1 [place] TP PRN QID PRN Artificial Tears (Polyvinyl Alcohol) 15 Ml Drops 1 Drop OU QID Refresh Tears (Carboxymethylcellulose Sodium) 15 Ml Drops 1 Drop OU BID Aspirin 325 Mg Tablet 325 Mg PO DAILY Levothyroxine Sodium 112 Mcg Tablet 112 Mcg PO DAILY07 Lexapro (Escitalopram Oxalate) 20 Mg Tablet 20 Mg PO DAILY Guaifenesin 100 Mg/5 Ml Liquid 100 Mg PO PRN Q4HRS PRN Protonix (Pantoprazole Sodium) 40 Mg Tablet.dr 40 Mg PO DAILY Senna S Tablet (Sennosides/Docusate Sodium) 1 Each Tablet 1 Tab PO BID Tylenol (Acetaminophen) 325 Mg Tablet 650 Mg PO PRN Q6HRS PRN Dicyclomine Hcl 10 Mg Capsule 10 Mg PO TID Valium (Diazepam) 10 Mg Tablet 10 Mg PO QHS Carafate (Sucralfate) 1 Gm Tablet 1 Gm PO BID Flonase (Fluticasone Propionate) 16 Gm [place].susp 1 Spr NS DAILY Miralax (Polyethylene Glycol 3350) 17 Gm Powd.pack 17 Gm PO DAILY I have reviewed the current psychotropics carefully including drug interactions. Risk benefit ratio favors no change other than as noted in my dictated progress note. 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
[2017-01-27] MEDS ORDERED: diazePAM 5 MG TABLET PO SCH (21:00)
--- NOTE | 2017-01-28 01:31 | PN ---
DATE: 01/26/2017 PSYCHIATRIC PROGRESS NOTE This late entry 01/26/2017, covers elements not covered in my initial note of 01/26/2017. I met with the patient in the evening of 01/26/2017. The patient remains confused, is pleasant, calmer per nursing staff, not trying to jump out of the Broda chair, which is an improvement. REVIEW OF SYSTEMS: No CV, , pulmonary, eye, ENT system symptoms on review. Reliability poor. MENTAL STATUS EXAM: Oriented to herself. Insight, judgment, recent and remote memory, attention, concentration, fund of knowledge poor, consistent with her diagnosis mentioned in my initial note. PLAN: Continue psychotropics mentioned in my initial note. MAN George CRUZ MD DR: RICHARD/doug JOB#: [id number] / [id number]
[2017-01-28 05:57] VITALS: BP 107/69
[2017-01-28] MEDS: LEVOTHYROXINE 112 MCG TABLET PO SCH (06:23)
[2017-01-28] MEDS: POLYETHYLENE GLYCOL 3350 17 GM PACKET. PO SCH (08:47)
[2017-01-28] MEDS: HALOPERIDOL 0.5 MG TABLET PO SCH ×2 (08:48→19:41)
[2017-01-28] MEDS: SERTRALINE 50 MG TABLET. PO SCH (08:48)
[2017-01-28] MEDS: DICYCLOMINE HCL 10 MG CAPSULE PO SCH ×3 (08:48→19:40)
[2017-01-28] MEDS: PANTOPRAZOLE 40 MG TABLET. PO SCH (08:48)
[2017-01-28] MEDS: QUEtiapine 25 MG TABLET. PO SCH ×2 (08:48→13:31)
[2017-01-28] MEDS: busPIRone 5 MG TABLET. PO SCH ×2 (08:49→13:31)
[2017-01-28] MEDS: SENNOSIDES/DOCUSATE 8.6/50MG TABLET. PO SCH ×2 (08:49→19:40)
[2017-01-28] MEDS: ASPIRIN 325 MG TABLET PO SCH (08:49)
[2017-01-28] MEDS: LISINOPRIL 10 MG TABLET PO SCH (08:49)
[2017-01-28] MEDS: POLYVINYL ALCOHOL 1.4% OPHTH SOLUTION 15ML BOTTLE. OU SCH ×4 (08:50→19:43)
[2017-01-28] MEDS: FLUTICASONE 50MCG/NASAL SPRAY 16GM BOTTLE. NS SCH (08:50)
[2017-01-28] MEDS: POTASSIUM CHLORIDE 20 MEQ TABLET.ER. PO SCH (13:30)
[2017-01-28 16:11] VITALS: BP 98/54
[2017-01-28] MEDS: diazePAM 5 MG TABLET PO SCH (19:43)
--- NOTE | 2017-01-28 20:09 | PDOC ---
Exam Note: Yossi Note: Please also refer to the separate dictated note~for this date of service dictated separately.~Patient seen individually. Discussed the patient with Nursing staff reviewed the chart.~Reviewed interim history and current functioning. Reviewed vital signs,~Labs/ Radiology~and current medications noted below. Continue current treatment with the changes noted in the dictated addendum note Assessment: Vital Signs: Vital Signs Date Time Temp Pulse Resp B/P (MAP) Pulse Ox O2 Delivery O2 Flow Rate FiO2 01/28/17 16:11 97.4 100 16 98/54 (69) 94 01/27/17 15:59 Room Air 01/27/17 06:12 20.0 I&O Intake and Output 01/28/17 07:00 Intake Total 605 ml Balance 605 ml Intake Oral 605 ml # Bowel Movements 1 Current Medications: Meds: Current Medications Acetaminophen (Tylenol) 650 mg PRN Q6HRS PRN PO PAIN / TEMP; Start 01/16/17 at 17:15; Status UNV Multi-Ingredient Ointment (Analgesic [place]) 1 karime PRN QID PRN TP MUSCLE PAIN; Start 01/16/17 at 17:15; Status Cancel Al Hydroxide/Mg Hydroxide (Mylanta Plus Xs) 15 ml PRN AFTMEALHC PRN PO DYSPEPSIA; Start 01/16/17 at 17:15 Magnesium Hydroxide (Milk Of Magnesia) 2,400 mg PRN QHS PRN PO CONSTIPATION; Start 01/16/17 at 17:15 Acetaminophen (Tylenol) 650 mg PRN Q6HRS PRN PO PAIN / TEMP; Start 01/16/17 at 17:30 Aspirin (Lana Aspirin) 325 mg DAILY PO Last administered on 01/28/17 08:49; Start 01/17/17 at 09:00 Dicyclomine HCl (Bentyl) 10 mg TID PO Last administered on 01/28/17 19:40; Start 01/16/17 at 21:00 Fluticasone Propionate (Flonase) 1 spray DAILY NS Last administered on 08:50; Start 01/17/17 at 09:00 Guaifenesin (Robitussin) 100 mg PRN Q4HRS PRN PO COUGH; Start 01/16/17 at 17:30 Levothyroxine Sodium (Synthroid) 112 mcg DAILY07 PO Last administered on 06:23; Start 01/17/17 at 07:00 Lisinopril (Prinivil) 5 mg DAILY PO Last administered on 01/20/17 09:27; Start 01/17/17 at 09:00; Stop 01/20/17 at 15:25; Status DC Pantoprazole Sodium (Protonix) 40 mg DAILY PO Last administered on 01/28/17 08:48; Start 01/17/17 at 09:00 Polyethylene Glycol (miraLAX) 17 gm DAILY PO Last administered on 01/28/17 08 :47; Start 01/17/17 at 09:00 Artificial Tears (Artificial Tears) 1 drop QID OU Last administered on 19:43; Start 01/16/17 at 21:00 Senna/Docusate Sodium (Senna Plus) 1 tab BID PO Last administered on 19:40; Start 01/16/17 at 21:00 Sucralfate (Carafate) 1 gm BIDBFRMEAL PO Last administered on 01/19/17 06:38; Start 01/17/17 at 07:30; Stop 01/19/17 at 10:48; Status DC Non-Formulary Medication 3 drop PRN Q1HR PRN SL SECRETIONS; Start 01/16/17 at 17:30; Status UNV Non-Formulary Medication 1 drop BID OU ; Start 01/16/17 at 21:00; Status UNV Non-Formulary Medication 1 karime PRN QID PRN TP MUSCLE PAIN; Start 01/16/17 at 17 :30; Status UNV Morphine Sulfate (Morphine Oral Solution) 5 mg PRN Q4HRS PRN PO MODERATE PAIN; Start 01/16/17 at 18:00 Haloperidol (Haldol) 0.25 mg BID PO Last administered on 01/28/17 19:41; Start 01/16/17 at 21:00 Haloperidol (Haldol) 0.5 mg PRN Q6HRS PRN PO ANXIETY / AGITATION; Start at 17:45 Lorazepam (Ativan Intensol) 1 mg PRN Q4HRS PRN PO ANXIETY / AGITATION Last administered on 01/17/17 00:41; Start 01/16/17 at 17:45 Diazepam (Valium) 10 mg HS PO Last administered on 01/16/17 22:31; Start 01/16 at 21:00; Stop 01/17/17 at 16:24; Status DC Escitalopram Oxalate (Lexapro) 20 mg DAILY PO Last administered on 01/17/17 09 :06; Start 01/17/17 at 09:00; Stop 01/17/17 at 19:09; Status DC Multi-Ingredient Ointment (Analgesic [place]) 1 karime PRN QID PRN TP MUSCLE PAIN; Start 01/16/17 at 18:00 Diazepam (Valium) 10 mg QHS PO Last administered on 01/21/17 19:24; Start 01/17/17 at 21:00; Stop 01/22/17 at 19:25; Status DC Sertraline HCl (Zoloft) 50 mg DAILY PO Last administered on 01/28/17 08:48; Start 01/18/17 at 09:00 Buspirone HCl (Buspar) 5 mg BID92 PO Last administered on 01/28/17 13:31; Start 01/19/17 at 09:00 Potassium Chloride (Klor-Con) 20 meq DAILYBFRLUN PO Last administered on 13:30; Start 01/19/17 at 11:30 Cyanocobalamin (Vitamin B-12) 1,000 mcg DAILY IM Last administered on 08:46; Start 01/20/17 at 09:00; Stop 01/24/17 at 09:00; Status DC Cyanocobalamin (Vitamin B-12) 1,000 mcg [id number] IM ; Start 02/16/17 at 09:00 Lisinopril (Prinivil) 10 mg DAILY PO Last administered on 01/28/17 08:49; Start 01/21/17 at 09:00 Quetiapine Fumarate (SEROquel) 12.5 mg BID@0900,1400 PO Last administered on 13:31; Start 01/22/17 at 09:00 Diazepam (Valium) 7.5 mg QHS PO Last administered on 01/26/17 19:58; Start 01/22/17 at 21:00; Stop 01/26/17 at 21:00; Status DC Diazepam (Valium) 2.5 mg HS PO ; Start 01/27/17 at 21:00; Stop 01/27/17 at 21: 00; Status DC Diazepam (Valium) 5 mg QHS PO Last administered on 01/28/17t 19:43; Start 03/03 at 21:00; Stop 01/31/17 at 23:00 Diazepam (Valium) 2.5 mg QHS PO ; Start 02/01/17 at 21:00; Stop 02/05/17 at 23 :00 Diazepam (Valium) 2 mg QHS PO ; Start 02/06/17 at 21:00; Stop 02/10/17 at 23: 00 Diazepam (Valium) 1 mg QHS PO ; Start 02/11/17 at 21:00; Stop 02/16/17 at 23:00 Active Scripts Active Reported Morphine Sulfate 20 Mg/5 Ml Solution 5 Mg PO PRN Q4HRS PRN Haloperidol 0.5 Mg Tablet 0.25 Mg PO BID Haloperidol 0.5 Mg Tablet 0.5 Mg PO PRN Q6HRS PRN Lisinopril 5 Mg Tablet 5 Mg PO DAILY Lorazepam Intensol (Lorazepam) 2 Mg/1 Ml Oral.conc 1 Mg PO PRN Q4HRS PRN Atropine 0.01%-Ns Eye Drops (Atropine Sulfate in 0.9% NaCl) 10 Ml Drops 3 Drop SL PRN Q1HR PRN Biofreeze (Menthol) 118 Ml Gel..ml. 1 [place] TP PRN QID PRN Artificial Tears (Polyvinyl Alcohol) 15 Ml Drops 1 Drop OU QID Refresh Tears (Carboxymethylcellulose Sodium) 15 Ml Drops 1 Drop OU BID Aspirin 325 Mg Tablet 325 Mg PO DAILY Levothyroxine Sodium 112 Mcg Tablet 112 Mcg PO DAILY07 Lexapro (Escitalopram Oxalate) 20 Mg Tablet 20 Mg PO DAILY Guaifenesin 100 Mg/5 Ml Liquid 100 Mg PO PRN Q4HRS PRN Protonix (Pantoprazole Sodium) 40 Mg Tablet.dr 40 Mg PO DAILY Senna S Tablet (Sennosides/Docusate Sodium) 1 Each Tablet 1 Tab PO BID Tylenol (Acetaminophen) 325 Mg Tablet 650 Mg PO PRN Q6HRS PRN Dicyclomine Hcl 10 Mg Capsule 10 Mg PO TID Valium (Diazepam) 10 Mg Tablet 10 Mg PO QHS Carafate (Sucralfate) 1 Gm Tablet 1 Gm PO BID Flonase (Fluticasone Propionate) 16 Gm [place].susp 1 Spr NS DAILY Miralax (Polyethylene Glycol 3350) 17 Gm Powd.pack 17 Gm PO DAILY I have reviewed the current psychotropics carefully including drug interactions. Risk benefit ratio favors no change other than as noted in my dictated progress note. 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
[2017-01-29] MEDS: LEVOTHYROXINE 112 MCG TABLET PO SCH (04:50)
--- NOTE | 2017-01-29 05:22 | PN ---
DATE: 01/27/2017 PSYCHIATRIC PROGRESS NOTE This late entry for 01/27/2017 covers elements not covered in my initial note 01/27/2017. SUBJECTIVE: I met with the patient the evening of 01/27/2017. Previous evening, the patient was somewhat delusional, talking regarding her children, fidgety, not trying to get out of the Broda chair. She did walk with PT, OT. REVIEW OF SYSTEMS: Ambulation impaired, in a Broda chair. No CV, , pulmonary, eye, ENT system symptoms on review. Reliability poor. MENTAL STATUS EXAM: Oriented to herself. Insight, judgment, recent and remote memory, attention, concentration, fund of knowledge poor, consistent with her diagnosis mentioned in my initial note. PLAN: Continue current psychotropics mentioned in my initial note, reviewed drug interactions, risk/benefit ratio favors no further change. MAN George CRUZ MD DR: RICHARD/doug JOB#: [id number] / [id number]
[2017-01-29] MEDS: ACETAMINOPHEN 325 MG TABLET PO PRN ×2 (05:34→20:30)
[2017-01-29 05:58] VITALS: BP 110/60
[2017-01-29] MEDS: HALOPERIDOL 0.5 MG TABLET PO SCH ×2 (09:19→20:27)
[2017-01-29] MEDS: POLYETHYLENE GLYCOL 3350 17 GM PACKET. PO SCH (09:19)
[2017-01-29] MEDS: ASPIRIN 325 MG TABLET PO SCH (09:19)
[2017-01-29] MEDS: DICYCLOMINE HCL 10 MG CAPSULE PO SCH ×3 (09:19→20:26)
[2017-01-29] MEDS: PANTOPRAZOLE 40 MG TABLET. PO SCH (09:20)
[2017-01-29] MEDS: SERTRALINE 50 MG TABLET. PO SCH (09:20)
[2017-01-29] MEDS: QUEtiapine 25 MG TABLET. PO SCH ×2 (09:20→13:10)
[2017-01-29] MEDS: POTASSIUM CHLORIDE 20 MEQ TABLET.ER. PO SCH (09:20)
[2017-01-29] MEDS: SENNOSIDES/DOCUSATE 8.6/50MG TABLET. PO SCH ×2 (09:20→20:27)
[2017-01-29] MEDS: LISINOPRIL 10 MG TABLET PO SCH (09:20)
[2017-01-29] MEDS: busPIRone 5 MG TABLET. PO SCH ×2 (09:21→13:10)
[2017-01-29] MEDS: POLYVINYL ALCOHOL 1.4% OPHTH SOLUTION 15ML BOTTLE. OU SCH ×4 (09:27→20:27)
[2017-01-29] MEDS: FLUTICASONE 50MCG/NASAL SPRAY 16GM BOTTLE. NS SCH (09:27)
[2017-01-29] MEDS: HALOPERIDOL 0.5 MG TABLET PO PRN (14:59)
[2017-01-29 16:42] VITALS: BP 111/82
--- NOTE | 2017-01-29 19:53 | PDOC ---
Exam Note: Yossi Note: Please also refer to the separate dictated note~for this date of service dictated separately.~Patient seen individually. Discussed the patient with Nursing staff reviewed the chart.~Reviewed interim history and current functioning. Reviewed vital signs,~Labs/ Radiology~and current medications noted below. Continue current treatment with the changes noted in the dictated addendum note Assessment: Vital Signs: Vital Signs Date Time Temp Pulse Resp B/P (MAP) Pulse Ox O2 Delivery O2 Flow Rate FiO2 01/29/17 16:42 97.7 91 16 111/82 (92) 98 01/27/17 15:59 Room Air 01/27/17 06:12 20.0 I&O Intake and Output 01/29/17 07:00 Intake Total 840 ml Balance 840 ml Intake Oral 840 ml # Bowel Movements 1 Current Medications: Meds: Current Medications Acetaminophen (Tylenol) 650 mg PRN Q6HRS PRN PO PAIN / TEMP; Start 01/16/17 at 17:15; Status UNV Multi-Ingredient Ointment (Analgesic [place]) 1 karime PRN QID PRN TP MUSCLE PAIN; Start 01/16/17 at 17:15; Status Cancel Al Hydroxide/Mg Hydroxide (Mylanta Plus Xs) 15 ml PRN AFTMEALHC PRN PO DYSPEPSIA; Start 01/16/17 at 17:15 Magnesium Hydroxide (Milk Of Magnesia) 2,400 mg PRN QHS PRN PO CONSTIPATION; Start 01/16/17 at 17:15 Acetaminophen (Tylenol) 650 mg PRN Q6HRS PRN PO PAIN / TEMP Last administered on 01/29/17 05:34; Start 01/16/17 at 17:30 Aspirin (Lana Aspirin) 325 mg DAILY PO Last administered on 01/29/17 09:19; Start 01/17/17 at 09:00 Dicyclomine HCl (Bentyl) 10 mg TID PO Last administered on 01/29/17 13:10; Start 01/16/17 at 21:00 Fluticasone Propionate (Flonase) 1 spray DAILY NS Last administered on 09:27; Start 01/17/17 at 09:00 Guaifenesin (Robitussin) 100 mg PRN Q4HRS PRN PO COUGH; Start 01/16/17 at 17:30 Levothyroxine Sodium (Synthroid) 112 mcg DAILY07 PO Last administered on 04:50; Start 01/17/17 at 07:00 Lisinopril (Prinivil) 5 mg DAILY PO Last administered on 01/20/17 09:27; Start 01/17/17 at 09:00; Stop 01/20/17 at 15:25; Status DC Pantoprazole Sodium (Protonix) 40 mg DAILY PO Last administered on 01/29/17 09:20; Start 01/17/17 at 09:00 Polyethylene Glycol (miraLAX) 17 gm DAILY PO Last administered on 01/29/17 09 :19; Start 01/17/17 at 09:00 Artificial Tears (Artificial Tears) 1 drop QID OU Last administered on 09:27; Start 01/16/17 at 21:00 Senna/Docusate Sodium (Senna Plus) 1 tab BID PO Last administered on 09:20; Start 01/16/17 at 21:00 Sucralfate (Carafate) 1 gm BIDBFRMEAL PO Last administered on 01/19/17 06:38; Start 01/17/17 at 07:30; Stop 01/19/17 at 10:48; Status DC Non-Formulary Medication 3 drop PRN Q1HR PRN SL SECRETIONS; Start 01/16/17 at 17:30; Status UNV Non-Formulary Medication 1 drop BID OU ; Start 01/16/17 at 21:00; Status UNV Non-Formulary Medication 1 karime PRN QID PRN TP MUSCLE PAIN; Start 01/16/17 at 17 :30; Status UNV Morphine Sulfate (Morphine Oral Solution) 5 mg PRN Q4HRS PRN PO MODERATE PAIN; Start 01/16/17 at 18:00 Haloperidol (Haldol) 0.25 mg BID PO Last administered on 01/29/17 09:19; Start 01/16/17 at 21:00 Haloperidol (Haldol) 0.5 mg PRN Q6HRS PRN PO ANXIETY / AGITATION Last administered on 01/29/17 14:59; Start 01/16/17 at 17:45 Lorazepam (Ativan Intensol) 1 mg PRN Q4HRS PRN PO ANXIETY / AGITATION Last administered on 01/17/17 00:41; Start 01/16/17 at 17:45 Diazepam (Valium) 10 mg HS PO Last administered on 01/16/17 22:31; Start 01/16 at 21:00; Stop 01/17/17 at 16:24; Status DC Escitalopram Oxalate (Lexapro) 20 mg DAILY PO Last administered on 01/17/17 09 :06; Start 01/17/17 at 09:00; Stop 01/17/17 at 19:09; Status DC Multi-Ingredient Ointment (Analgesic [place]) 1 karime PRN QID PRN TP MUSCLE PAIN; Start 01/16/17 at 18:00 Diazepam (Valium) 10 mg QHS PO Last administered on 01/21/17 19:24; Start 01/17/17 at 21:00; Stop 01/22/17 at 19:25; Status DC Sertraline HCl (Zoloft) 50 mg DAILY PO Last administered on 01/29/17 09:20; Start 01/18/17 at 09:00 Buspirone HCl (Buspar) 5 mg BID92 PO Last administered on 01/29/17 13:10; Start 01/19/17 at 09:00 Potassium Chloride (Klor-Con) 20 meq DAILYBFRLUN PO Last administered on 09:20; Start 01/19/17 at 11:30 Cyanocobalamin (Vitamin B-12) 1,000 mcg DAILY IM Last administered on 08:46; Start 01/20/17 at 09:00; Stop 01/24/17 at 09:00; Status DC Cyanocobalamin (Vitamin B-12) 1,000 mcg [id number] IM ; Start 02/16/17 at 09:00 Lisinopril (Prinivil) 10 mg DAILY PO Last administered on 01/29/17 09:20; Start 01/21/17 at 09:00 Quetiapine Fumarate (SEROquel) 12.5 mg BID@0900,1400 PO Last administered on 13:10; Start 01/22/17 at 09:00 Diazepam (Valium) 7.5 mg QHS PO Last administered on 01/26/17 19:58; Start 01/22/17 at 21:00; Stop 01/26/17 at 21:00; Status DC Diazepam (Valium) 2.5 mg HS PO ; Start 01/27/17 at 21:00; Stop 01/27/17 at 21: 00; Status DC Diazepam (Valium) 5 mg QHS PO Last administered on 01/28/17t 19:43; Start 03/03 at 21:00; Stop 01/31/17 at 23:00 Diazepam (Valium) 2.5 mg QHS PO ; Start 02/01/17 at 21:00; Stop 02/05/17 at 23 :00 Diazepam (Valium) 2 mg QHS PO ; Start 02/06/17 at 21:00; Stop 02/10/17 at 23: 00 Diazepam (Valium) 1 mg QHS PO ; Start 02/11/17 at 21:00; Stop 02/16/17 at 23:00 Active Scripts Active Reported Morphine Sulfate 20 Mg/5 Ml Solution 5 Mg PO PRN Q4HRS PRN Haloperidol 0.5 Mg Tablet 0.25 Mg PO BID Haloperidol 0.5 Mg Tablet 0.5 Mg PO PRN Q6HRS PRN Lisinopril 5 Mg Tablet 5 Mg PO DAILY Lorazepam Intensol (Lorazepam) 2 Mg/1 Ml Oral.conc 1 Mg PO PRN Q4HRS PRN Atropine 0.01%-Ns Eye Drops (Atropine Sulfate in 0.9% NaCl) 10 Ml Drops 3 Drop SL PRN Q1HR PRN Biofreeze (Menthol) 118 Ml Gel..ml. 1 [place] TP PRN QID PRN Artificial Tears (Polyvinyl Alcohol) 15 Ml Drops 1 Drop OU QID Refresh Tears (Carboxymethylcellulose Sodium) 15 Ml Drops 1 Drop OU BID Aspirin 325 Mg Tablet 325 Mg PO DAILY Levothyroxine Sodium 112 Mcg Tablet 112 Mcg PO DAILY07 Lexapro (Escitalopram Oxalate) 20 Mg Tablet 20 Mg PO DAILY Guaifenesin 100 Mg/5 Ml Liquid 100 Mg PO PRN Q4HRS PRN Protonix (Pantoprazole Sodium) 40 Mg Tablet.dr 40 Mg PO DAILY Senna S Tablet (Sennosides/Docusate Sodium) 1 Each Tablet 1 Tab PO BID Tylenol (Acetaminophen) 325 Mg Tablet 650 Mg PO PRN Q6HRS PRN Dicyclomine Hcl 10 Mg Capsule 10 Mg PO TID Valium (Diazepam) 10 Mg Tablet 10 Mg PO QHS Carafate (Sucralfate) 1 Gm Tablet 1 Gm PO BID Flonase (Fluticasone Propionate) 16 Gm [place].susp 1 Spr NS DAILY Miralax (Polyethylene Glycol 3350) 17 Gm Powd.pack 17 Gm PO DAILY I have reviewed the current psychotropics carefully including drug interactions. Risk benefit ratio favors no change other than as noted in my dictated progress note. 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
[2017-01-29] MEDS: diazePAM 5 MG TABLET PO SCH (20:26)
[2017-01-30] MEDS: LEVOTHYROXINE 112 MCG TABLET PO SCH (05:06)
[2017-01-30 05:42] VITALS: BP 131/90
[2017-01-30] MEDS: ASPIRIN 325 MG TABLET PO SCH (08:28)
[2017-01-30] MEDS: PANTOPRAZOLE 40 MG TABLET. PO SCH (08:29)
[2017-01-30] MEDS: QUEtiapine 25 MG TABLET. PO SCH ×2 (08:29→13:01)
[2017-01-30] MEDS: LISINOPRIL 10 MG TABLET PO SCH (08:29)
[2017-01-30] MEDS: busPIRone 5 MG TABLET. PO SCH ×2 (08:29→13:01)
[2017-01-30] MEDS: SERTRALINE 50 MG TABLET. PO SCH (08:29)
[2017-01-30] MEDS: DICYCLOMINE HCL 10 MG CAPSULE PO SCH ×3 (08:29→19:52)
[2017-01-30] MEDS: POTASSIUM CHLORIDE 20 MEQ TABLET.ER. PO SCH (08:29)
[2017-01-30] MEDS: HALOPERIDOL 0.5 MG TABLET PO SCH ×2 (08:30→19:52)
[2017-01-30] MEDS: SENNOSIDES/DOCUSATE 8.6/50MG TABLET. PO SCH ×2 (08:30→19:52)
[2017-01-30] MEDS: POLYETHYLENE GLYCOL 3350 17 GM PACKET. PO SCH (08:32)
[2017-01-30] MEDS: POLYVINYL ALCOHOL 1.4% OPHTH SOLUTION 15ML BOTTLE. OU SCH ×4 (08:43→19:52)
[2017-01-30] MEDS: FLUTICASONE 50MCG/NASAL SPRAY 16GM BOTTLE. NS SCH (08:43)
--- NOTE | 2017-01-30 09:15 | PN ---
DATE: 01/28/2017 PSYCHIATRIC PROGRESS NOTE This late entry for 01/28/2017 covers elements not covered in my initial note of 01/28/2017. SUBJECTIVE: I met with the patient evening of 01/28/2017. Overall, the patient remains confused, but is more pleasant, less anxious, restless. REVIEW OF SYSTEMS: Ambulation impaired, in a Broda chair. No CV, , pulmonary, eye, ENT system symptoms on review. Reliability poor. MENTAL STATUS EXAM: Oriented to herself. Insight, judgment, recent and remote memory, attention, concentration, fund of knowledge poor, consistent with her diagnosis mentioned in my initial note. PLAN: Continue psychotropics mentioned in my initial note. MAN George CRUZ MD DR: RICHARD/doug JOB#: [id number] / [id number]
[2017-01-30 16:02] VITALS: BP 115/67
[2017-01-30] MEDS: diazePAM 5 MG TABLET PO SCH (19:52)
--- NOTE | 2017-01-30 20:00 | PDOC ---
Exam Note: Yossi Note: Please also refer to the separate dictated note~for this date of service dictated separately.~Patient seen individually. Discussed the patient with Nursing staff reviewed the chart.~Reviewed interim history and current functioning. Reviewed vital signs,~Labs/ Radiology~and current medications noted below. Continue current treatment with the changes noted in the dictated addendum note Assessment: Vital Signs: Vital Signs Date Time Temp Pulse Resp B/P (MAP) Pulse Ox O2 Delivery O2 Flow Rate FiO2 01/30/17 16:02 97.8 90 18 115/67 (83) 95 01/27/17 15:59 Room Air 01/27/17 06:12 20.0 I&O Intake and Output 01/30/17 07:00 Intake Total 960 ml Balance 960 ml Intake Oral 960 ml # Bowel Movements 1 Current Medications: Meds: Current Medications Acetaminophen (Tylenol) 650 mg PRN Q6HRS PRN PO PAIN / TEMP; Start 01/16/17 at 17:15; Status UNV Multi-Ingredient Ointment (Analgesic [place]) 1 karime PRN QID PRN TP MUSCLE PAIN; Start 01/16/17 at 17:15; Status Cancel Al Hydroxide/Mg Hydroxide (Mylanta Plus Xs) 15 ml PRN AFTMEALHC PRN PO DYSPEPSIA; Start 01/16/17 at 17:15 Magnesium Hydroxide (Milk Of Magnesia) 2,400 mg PRN QHS PRN PO CONSTIPATION; Start 01/16/17 at 17:15 Acetaminophen (Tylenol) 650 mg PRN Q6HRS PRN PO PAIN / TEMP Last administered on 01/29/17 20:30; Start 01/16/17 at 17:30 Aspirin (Lana Aspirin) 325 mg DAILY PO Last administered on 01/30/17 08:28; Start 01/17/17 at 09:00 Dicyclomine HCl (Bentyl) 10 mg TID PO Last administered on 01/30/17 19:52; Start 01/16/17 at 21:00 Fluticasone Propionate (Flonase) 1 spray DAILY NS Last administered on 08:43; Start 01/17/17 at 09:00 Guaifenesin (Robitussin) 100 mg PRN Q4HRS PRN PO COUGH; Start 01/16/17 at 17:30 Levothyroxine Sodium (Synthroid) 112 mcg DAILY07 PO Last administered on 05:06; Start 01/17/17 at 07:00 Lisinopril (Prinivil) 5 mg DAILY PO Last administered on 01/20/17 09:27; Start 01/17/17 at 09:00; Stop 01/20/17 at 15:25; Status DC Pantoprazole Sodium (Protonix) 40 mg DAILY PO Last administered on 01/30/17 08:29; Start 01/17/17 at 09:00 Polyethylene Glycol (miraLAX) 17 gm DAILY PO Last administered on 01/30/17 08 :32; Start 01/17/17 at 09:00 Artificial Tears (Artificial Tears) 1 drop QID OU Last administered on 19:52; Start 01/16/17 at 21:00 Senna/Docusate Sodium (Senna Plus) 1 tab BID PO Last administered on 19:52; Start 01/16/17 at 21:00 Sucralfate (Carafate) 1 gm BIDBFRMEAL PO Last administered on 01/19/17 06:38; Start 01/17/17 at 07:30; Stop 01/19/17 at 10:48; Status DC Non-Formulary Medication 3 drop PRN Q1HR PRN SL SECRETIONS; Start 01/16/17 at 17:30; Status UNV Non-Formulary Medication 1 drop BID OU ; Start 01/16/17 at 21:00; Status UNV Non-Formulary Medication 1 karime PRN QID PRN TP MUSCLE PAIN; Start 01/16/17 at 17 :30; Status UNV Morphine Sulfate (Morphine Oral Solution) 5 mg PRN Q4HRS PRN PO MODERATE PAIN; Start 01/16/17 at 18:00 Haloperidol (Haldol) 0.25 mg BID PO Last administered on 01/30/17 19:52; Start 01/16/17 at 21:00 Haloperidol (Haldol) 0.5 mg PRN Q6HRS PRN PO ANXIETY / AGITATION Last administered on 01/29/17 14:59; Start 01/16/17 at 17:45 Lorazepam (Ativan Intensol) 1 mg PRN Q4HRS PRN PO ANXIETY / AGITATION Last administered on 01/17/17 00:41; Start 01/16/17 at 17:45 Diazepam (Valium) 10 mg HS PO Last administered on 01/16/17 22:31; Start 01/16 at 21:00; Stop 01/17/17 at 16:24; Status DC Escitalopram Oxalate (Lexapro) 20 mg DAILY PO Last administered on 01/17/17 09 :06; Start 01/17/17 at 09:00; Stop 01/17/17 at 19:09; Status DC Multi-Ingredient Ointment (Analgesic [place]) 1 karime PRN QID PRN TP MUSCLE PAIN; Start 01/16/17 at 18:00 Diazepam (Valium) 10 mg QHS PO Last administered on 01/21/17 19:24; Start 01/17/17 at 21:00; Stop 01/22/17 at 19:25; Status DC Sertraline HCl (Zoloft) 50 mg DAILY PO Last administered on 01/30/17 08:29; Start 01/18/17 at 09:00 Buspirone HCl (Buspar) 5 mg BID92 PO Last administered on 01/30/17 13:01; Start 01/19/17 at 09:00 Potassium Chloride (Klor-Con) 20 meq DAILYBFRLUN PO Last administered on 08:29; Start 01/19/17 at 11:30 Cyanocobalamin (Vitamin B-12) 1,000 mcg DAILY IM Last administered on 08:46; Start 01/20/17 at 09:00; Stop 01/24/17 at 09:00; Status DC Cyanocobalamin (Vitamin B-12) 1,000 mcg [id number] IM ; Start 02/16/17 at 09:00 Lisinopril (Prinivil) 10 mg DAILY PO Last administered on 01/30/17 08:29; Start 01/21/17 at 09:00 Quetiapine Fumarate (SEROquel) 12.5 mg BID@0900,1400 PO Last administered on 13:01; Start 01/22/17 at 09:00 Diazepam (Valium) 7.5 mg QHS PO Last administered on 01/26/17 19:58; Start 01/22/17 at 21:00; Stop 01/26/17 at 21:00; Status DC Diazepam (Valium) 2.5 mg HS PO ; Start 01/27/17 at 21:00; Stop 01/27/17 at 21: 00; Status DC Diazepam (Valium) 5 mg QHS PO Last administered on 01/30/17t 19:52; Start 03/03 at 21:00; Stop 01/31/17 at 23:00 Diazepam (Valium) 2.5 mg QHS PO ; Start 02/01/17 at 21:00; Stop 02/05/17 at 23 :00 Diazepam (Valium) 2 mg QHS PO ; Start 02/06/17 at 21:00; Stop 02/10/17 at 23: 00 Diazepam (Valium) 1 mg QHS PO ; Start 02/11/17 at 21:00; Stop 02/16/17 at 23:00 Active Scripts Active Reported Morphine Sulfate 20 Mg/5 Ml Solution 5 Mg PO PRN Q4HRS PRN Haloperidol 0.5 Mg Tablet 0.25 Mg PO BID Haloperidol 0.5 Mg Tablet 0.5 Mg PO PRN Q6HRS PRN Lisinopril 5 Mg Tablet 5 Mg PO DAILY Lorazepam Intensol (Lorazepam) 2 Mg/1 Ml Oral.conc 1 Mg PO PRN Q4HRS PRN Atropine 0.01%-Ns Eye Drops (Atropine Sulfate in 0.9% NaCl) 10 Ml Drops 3 Drop SL PRN Q1HR PRN Biofreeze (Menthol) 118 Ml Gel..ml. 1 Kar[place] TP PRN QID PRN Artificial Tears (Polyvinyl Alcohol) 15 Ml Drops 1 Drop OU QID Refresh Tears (Carboxymethylcellulose Sodium) 15 Ml Drops 1 Drop OU BID Aspirin 325 Mg Tablet 325 Mg PO DAILY Levothyroxine Sodium 112 Mcg Tablet 112 Mcg PO DAILY07 Lexapro (Escitalopram Oxalate) 20 Mg Tablet 20 Mg PO DAILY Guaifenesin 100 Mg/5 Ml Liquid 100 Mg PO PRN Q4HRS PRN Protonix (Pantoprazole Sodium) 40 Mg Tablet.dr 40 Mg PO DAILY Senna S Tablet (Sennosides/Docusate Sodium) 1 Each Tablet 1 Tab PO BID Tylenol (Acetaminophen) 325 Mg Tablet 650 Mg PO PRN Q6HRS PRN Dicyclomine Hcl 10 Mg Capsule 10 Mg PO TID Valium (Diazepam) 10 Mg Tablet 10 Mg PO QHS Carafate (Sucralfate) 1 Gm Tablet 1 Gm PO BID Flonase (Fluticasone Propionate) 16 Gm [place].susp 1 Spr NS DAILY Miralax (Polyethylene Glycol 3350) 17 Gm Powd.pack 17 Gm PO DAILY I have reviewed the current psychotropics carefully including drug interactions. Risk benefit ratio favors no change other than as noted in my dictated progress note. 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
[2017-01-31 05:46] VITALS: BP 121/83
[2017-01-31] MEDS: LEVOTHYROXINE 112 MCG TABLET PO SCH (06:11)
--- NOTE | 2017-01-31 06:13 | PN ---
DATE: 01/29/2017 This is a late entry for date of service 01/29/2017 and covers elements not covered in my initial note of 01/29/2017. SUBJECTIVE: I met with the patient evening of 01/29/2017. She remains confused, was quite agitated around 3:00 p.m., spit out her medications and then was a little sedated, at 1500 hours she received a p.r.n., did much better after that. Two nursing facilities have come to screen for possible placement. REVIEW OF SYSTEMS: Ambulation impaired. No CV, , eye, ENT or pulmonary system symptoms on review. Reliability poor. MENTAL STATUS EXAM: Oriented to herself. Insight, judgment, recent and remote memory, attention, concentration, fund of knowledge poor, consistent with her diagnoses as mentioned in my initial note. PLAN: Continue psychotropics as mentioned in my initial note. MAN George CRUZ MD DR: RICHARD/doug JOB#: [id number] / [id number]
[2017-01-31] MEDS: SENNOSIDES/DOCUSATE 8.6/50MG TABLET. PO SCH ×2 (09:07→19:17)
[2017-01-31] MEDS: POTASSIUM CHLORIDE 20 MEQ TABLET.ER. PO SCH (09:08)
[2017-01-31] MEDS: DICYCLOMINE HCL 10 MG CAPSULE PO SCH ×3 (09:08→19:17)
[2017-01-31] MEDS: ASPIRIN 325 MG TABLET PO SCH (09:08)
[2017-01-31] MEDS: LISINOPRIL 10 MG TABLET PO SCH (09:08)
[2017-01-31] MEDS: busPIRone 5 MG TABLET. PO SCH ×2 (09:08→14:11)
[2017-01-31] MEDS: PANTOPRAZOLE 40 MG TABLET. PO SCH (09:08)
[2017-01-31] MEDS: POLYETHYLENE GLYCOL 3350 17 GM PACKET. PO SCH (09:09)
[2017-01-31] MEDS: SERTRALINE 50 MG TABLET. PO SCH (09:09)
[2017-01-31] MEDS: QUEtiapine 25 MG TABLET. PO SCH ×2 (09:09→14:11)
[2017-01-31] MEDS: HALOPERIDOL 0.5 MG TABLET PO SCH ×2 (09:09→19:17)
[2017-01-31] MEDS: POLYVINYL ALCOHOL 1.4% OPHTH SOLUTION 15ML BOTTLE. OU SCH ×4 (09:10→19:19)
[2017-01-31] MEDS: FLUTICASONE 50MCG/NASAL SPRAY 16GM BOTTLE. NS SCH (09:10)
[2017-01-31 16:47] VITALS: BP 103/65
[2017-01-31] MEDS: diazePAM 5 MG TABLET PO SCH (19:18)
--- NOTE | 2017-01-31 20:17 | PDOC ---
Exam Note: Yossi Note: Please also refer to the separate dictated note~for this date of service dictated separately.~Patient seen individually. Discussed the patient with Nursing staff reviewed the chart.~Reviewed interim history and current functioning. Reviewed vital signs,~Labs/ Radiology~and current medications noted below. Continue current treatment with the changes noted in the dictated addendum note Assessment: Vital Signs: Vital Signs Date Time Temp Pulse Resp B/P (MAP) Pulse Ox O2 Delivery O2 Flow Rate FiO2 01/31/17 16:47 97.6 90 20 103/65 (78) 95 Room Air 01/27/17 06:12 20.0 I&O Intake and Output 01/31/17 07:00 Intake Total 1080 ml Balance 1080 ml Intake Oral 1080 ml # Bowel Movements 1 Current Medications: Meds: Current Medications Acetaminophen (Tylenol) 650 mg PRN Q6HRS PRN PO PAIN / TEMP; Start 01/16/17 at 17:15; Status UNV Multi-Ingredient Ointment (Analgesic [place]) 1 karime PRN QID PRN TP MUSCLE PAIN; Start 01/16/17 at 17:15; Status Cancel Al Hydroxide/Mg Hydroxide (Mylanta Plus Xs) 15 ml PRN AFTMEALHC PRN PO DYSPEPSIA; Start 01/16/17 at 17:15 Magnesium Hydroxide (Milk Of Magnesia) 2,400 mg PRN QHS PRN PO CONSTIPATION; Start 01/16/17 at 17:15 Acetaminophen (Tylenol) 650 mg PRN Q6HRS PRN PO PAIN / TEMP Last administered on 01/29/17 20:30; Start 01/16/17 at 17:30 Aspirin (Lana Aspirin) 325 mg DAILY PO Last administered on 01/31/17 09:08; Start 01/17/17 at 09:00 Dicyclomine HCl (Bentyl) 10 mg TID PO Last administered on 01/31/17 19:17; Start 01/16/17 at 21:00 Fluticasone Propionate (Flonase) 1 spray DAILY NS Last administered on 09:10; Start 01/17/17 at 09:00 Guaifenesin (Robitussin) 100 mg PRN Q4HRS PRN PO COUGH; Start 01/16/17 at 17:30 Levothyroxine Sodium (Synthroid) 112 mcg DAILY07 PO Last administered on 06:11; Start 01/17/17 at 07:00 Lisinopril (Prinivil) 5 mg DAILY PO Last administered on 01/20/17 09:27; Start 01/17/17 at 09:00; Stop 01/20/17 at 15:25; Status DC Pantoprazole Sodium (Protonix) 40 mg DAILY PO Last administered on 01/31/17 09:08; Start 01/17/17 at 09:00 Polyethylene Glycol (miraLAX) 17 gm DAILY PO Last administered on 01/31/17 09 :09; Start 01/17/17 at 09:00 Artificial Tears (Artificial Tears) 1 drop QID OU Last administered on 19:19; Start 01/16/17 at 21:00 Senna/Docusate Sodium (Senna Plus) 1 tab BID PO Last administered on 19:17; Start 01/16/17 at 21:00 Sucralfate (Carafate) 1 gm BIDBFRMEAL PO Last administered on 01/19/17 06:38; Start 01/17/17 at 07:30; Stop 01/19/17 at 10:48; Status DC Non-Formulary Medication 3 drop PRN Q1HR PRN SL SECRETIONS; Start 01/16/17 at 17:30; Status UNV Non-Formulary Medication 1 drop BID OU ; Start 01/16/17 at 21:00; Status UNV Non-Formulary Medication 1 karime PRN QID PRN TP MUSCLE PAIN; Start 01/16/17 at 17 :30; Status UNV Morphine Sulfate (Morphine Oral Solution) 5 mg PRN Q4HRS PRN PO MODERATE PAIN; Start 01/16/17 at 18:00 Haloperidol (Haldol) 0.25 mg BID PO Last administered on 01/31/17 19:17; Start 01/16/17 at 21:00 Haloperidol (Haldol) 0.5 mg PRN Q6HRS PRN PO ANXIETY / AGITATION Last administered on 01/29/17 14:59; Start 01/16/17 at 17:45 Lorazepam (Ativan Intensol) 1 mg PRN Q4HRS PRN PO ANXIETY / AGITATION Last administered on 01/17/17 00:41; Start 01/16/17 at 17:45 Diazepam (Valium) 10 mg HS PO Last administered on 01/16/17 22:31; Start 01/16 at 21:00; Stop 01/17/17 at 16:24; Status DC Escitalopram Oxalate (Lexapro) 20 mg DAILY PO Last administered on 01/17/17 09 :06; Start 01/17/17 at 09:00; Stop 01/17/17 at 19:09; Status DC Multi-Ingredient Ointment (Analgesic [place]) 1 karime PRN QID PRN TP MUSCLE PAIN; Start 01/16/17 at 18:00 Diazepam (Valium) 10 mg QHS PO Last administered on 01/21/17 19:24; Start 01/17/17 at 21:00; Stop 01/22/17 at 19:25; Status DC Sertraline HCl (Zoloft) 50 mg DAILY PO Last administered on 01/31/17 09:09; Start 01/18/17 at 09:00 Buspirone HCl (Buspar) 5 mg BID92 PO Last administered on 01/31/17 14:11; Start 01/19/17 at 09:00 Potassium Chloride (Klor-Con) 20 meq DAILYBFRLUN PO Last administered on 09:08; Start 01/19/17 at 11:30 Cyanocobalamin (Vitamin B-12) 1,000 mcg DAILY IM Last administered on 08:46; Start 01/20/17 at 09:00; Stop 01/24/17 at 09:00; Status DC Cyanocobalamin (Vitamin B-12) 1,000 mcg [id number] IM ; Start 02/16/17 at 09:00 Lisinopril (Prinivil) 10 mg DAILY PO Last administered on 01/31/17 09:08; Start 01/21/17 at 09:00 Quetiapine Fumarate (SEROquel) 12.5 mg BID@0900,1400 PO Last administered on 14:11; Start 01/22/17 at 09:00 Diazepam (Valium) 7.5 mg QHS PO Last administered on 01/26/17 19:58; Start 01/22/17 at 21:00; Stop 01/26/17 at 21:00; Status DC Diazepam (Valium) 2.5 mg HS PO ; Start 01/27/17 at 21:00; Stop 01/27/17 at 21: 00; Status DC Diazepam (Valium) 5 mg QHS PO Last administered on 01/31/17t 19:18; Start 03/03 at 21:00; Stop 01/31/17 at 23:00 Diazepam (Valium) 2.5 mg QHS PO ; Start 02/01/17 at 21:00; Stop 02/05/17 at 23 :00 Diazepam (Valium) 2 mg QHS PO ; Start 02/06/17 at 21:00; Stop 02/10/17 at 23: 00 Diazepam (Valium) 1 mg QHS PO ; Start 02/11/17 at 21:00; Stop 02/16/17 at 23:00 Active Scripts Active Reported Morphine Sulfate 20 Mg/5 Ml Solution 5 Mg PO PRN Q4HRS PRN Haloperidol 0.5 Mg Tablet 0.25 Mg PO BID Haloperidol 0.5 Mg Tablet 0.5 Mg PO PRN Q6HRS PRN Lisinopril 5 Mg Tablet 5 Mg PO DAILY Lorazepam Intensol (Lorazepam) 2 Mg/1 Ml Oral.conc 1 Mg PO PRN Q4HRS PRN Atropine 0.01%-Ns Eye Drops (Atropine Sulfate in 0.9% NaCl) 10 Ml Drops 3 Drop SL PRN Q1HR PRN Biofreeze (Menthol) 118 Ml Gel..ml. 1 [place] TP PRN QID PRN Artificial Tears (Polyvinyl Alcohol) 15 Ml Drops 1 Drop OU QID Refresh Tears (Carboxymethylcellulose Sodium) 15 Ml Drops 1 Drop OU BID Aspirin 325 Mg Tablet 325 Mg PO DAILY Levothyroxine Sodium 112 Mcg Tablet 112 Mcg PO DAILY07 Lexapro (Escitalopram Oxalate) 20 Mg Tablet 20 Mg PO DAILY Guaifenesin 100 Mg/5 Ml Liquid 100 Mg PO PRN Q4HRS PRN Protonix (Pantoprazole Sodium) 40 Mg Tablet.dr 40 Mg PO DAILY Senna S Tablet (Sennosides/Docusate Sodium) 1 Each Tablet 1 Tab PO BID Tylenol (Acetaminophen) 325 Mg Tablet 650 Mg PO PRN Q6HRS PRN Dicyclomine Hcl 10 Mg Capsule 10 Mg PO TID Valium (Diazepam) 10 Mg Tablet 10 Mg PO QHS Carafate (Sucralfate) 1 Gm Tablet 1 Gm PO BID Flonase (Fluticasone Propionate) 16 Gm [place].susp 1 Spr NS DAILY Miralax (Polyethylene Glycol 3350) 17 Gm Powd.pack 17 Gm PO DAILY I have reviewed the current psychotropics carefully including drug interactions. Risk benefit ratio favors no change other than as noted in my dictated progress note. 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
[2017-02-01] MEDS: LEVOTHYROXINE 112 MCG TABLET PO SCH (05:43)
[2017-02-01 05:55] VITALS: BP 119/80
[2017-02-01 07:04] LABS: BASO # 0.1 x10^3/uL (0.0-0.2); BASO % 3 % (0-3); EOS # 0.1 x10^3/uL (0.0-0.7); EOS % 3 % (0-3); HEMATOCRIT 38.4 % (36.0-47.0); HEMOGLOBIN 12.2 g/dL (12.0-15.5); LYMPH # 1.3 x10^3/uL (1.0-4.8); LYMPH % 24 % (24-48); MEAN CORPUSCULAR HEMOGLOBIN 31 pg (25-35); MEAN CORPUSCULAR HGB CONC 32 g/dL (31-37); MEAN CORPUSCULAR VOLUME 98 fL (79-100); MONO # 0.4 x10^3/uL (0.0-1.1); MONO % 7 % (0-9); NEUT # 3.4 x10^3uL (1.8-7.7); NEUT % 64 % (31-73); PLATELET COUNT 203 x10^3/uL (140-400); RED BLOOD COUNT 3.91 x10^6/uL (3.50-5.40); WHITE BLOOD COUNT 5.4 x10^3/uL (4.0-11.0)
[2017-02-01 07:19] LABS: ALBUMIN 3.1 g/dL (3.4-5.0); ALBUMIN/GLOBULIN RATIO 0.8 (1.0-1.7); CALCIUM 9.3 mg/dL (8.5-10.1); CREATININE 1.2 mg/dL (0.6-1.0); GFR 42.9; MAGNESIUM 2.2 mg/dL (1.8-2.4); POTASSIUM 4.4 mmol/L (3.5-5.1); TOTAL BILIRUBIN 0.2 mg/dL (0.2-1.0)
[2017-02-01] MEDS: ASPIRIN 325 MG TABLET PO SCH (09:23)
[2017-02-01] MEDS: LISINOPRIL 10 MG TABLET PO SCH (09:23)
[2017-02-01] MEDS: QUEtiapine 25 MG TABLET. PO SCH ×3 (09:23→19:31)
[2017-02-01] MEDS: DICYCLOMINE HCL 10 MG CAPSULE PO SCH ×3 (09:23→19:29)
[2017-02-01] MEDS: SERTRALINE 50 MG TABLET. PO SCH (09:23)
[2017-02-01] MEDS: busPIRone 5 MG TABLET. PO SCH ×2 (09:23→14:04)
[2017-02-01] MEDS: PANTOPRAZOLE 40 MG TABLET. PO SCH (09:23)
[2017-02-01] MEDS: SENNOSIDES/DOCUSATE 8.6/50MG TABLET. PO SCH ×2 (09:23→19:29)
[2017-02-01] MEDS: HALOPERIDOL 0.5 MG TABLET PO SCH ×2 (09:24→19:29)
[2017-02-01] MEDS: POLYETHYLENE GLYCOL 3350 17 GM PACKET. PO SCH (09:24)
[2017-02-01] MEDS: POLYVINYL ALCOHOL 1.4% OPHTH SOLUTION 15ML BOTTLE. OU SCH ×4 (09:24→19:30)
[2017-02-01] MEDS: FLUTICASONE 50MCG/NASAL SPRAY 16GM BOTTLE. NS SCH (09:25)
[2017-02-01] MEDS: POTASSIUM CHLORIDE 20 MEQ TABLET.ER. PO SCH (11:45)
[2017-02-01 16:06] VITALS: BP 103/72
[2017-02-01] MEDS: diazePAM 5 MG TABLET PO SCH (19:31)
--- NOTE | 2017-02-01 20:01 | PDOC ---
Exam Note: Yossi Note: Please also refer to the separate dictated note~for this date of service dictated separately.~Patient seen individually. Discussed the patient with Nursing staff reviewed the chart.~Reviewed interim history and current functioning. Reviewed vital signs,~Labs/ Radiology~and current medications noted below. Continue current treatment with the changes noted in the dictated addendum note Assessment: Vital Signs: Vital Signs Date Time Temp Pulse Resp B/P (MAP) Pulse Ox O2 Delivery O2 Flow Rate FiO2 02/01/17 16:06 97.9 94 18 103/72 (82) 96 Room Air 01/27/17 06:12 20.0 I&O Intake and Output 02/01/17 07:00 Intake Total 1080 ml Balance 1080 ml Intake Oral 1080 ml # Bowel Movements 1 Labs: Laboratory Tests Test 02/01/17 06:46 White Blood Count 5.4 x10^3/uL (4.0-11.0) Red Blood Count 3.91 x10^6/uL (3.50-5.40) Hemoglobin 12.2 g/dL (12.0-15.5) Hematocrit 38.4 % (36.0-47.0) Mean Corpuscular Volume 98 fL (79-100) # Mean Corpuscular Hemoglobin 31 pg (25-35) Mean Corpuscular Hemoglobin Concent 32 g/dL (31-37) Red Cell Distribution Width 16.0 % (11.5-14.5) H Platelet Count 203 x10^3/uL (140-400) Neutrophils (%) (Auto) 64 % (31-73) Lymphocytes (%) (Auto) 24 % (24-48) Monocytes (%) (Auto) 7 % (0-9) Eosinophils (%) (Auto) 3 % (0-3) Basophils (%) (Auto) 3 % (0-3) Neutrophils # (Auto) 3.4 x10^3uL (1.8-7.7) Lymphocytes # (Auto) 1.3 x10^3/uL (1.0-4.8) Monocytes # (Auto) 0.4 x10^3/uL (0.0-1.1) Eosinophils # (Auto) 0.1 x10^3/uL (0.0-0.7) Basophils # (Auto) 0.1 x10^3/uL (0.0-0.2) Sodium Level 142 mmol/L (136-145) Potassium Level 4.4 mmol/L (3.5-5.1) Chloride Level 109 mmol/L (98-107) H Carbon Dioxide Level 23 mmol/L (21-32) Anion Gap 10 (6-14) Blood Urea Nitrogen 22 mg/dL (7-20) H Creatinine 1.2 mg/dL (0.6-1.0) H Estimated GFR (Cockcroft-Gault) 42.9 BUN/Creatinine Ratio 18 (6-20) Glucose Level 77 mg/dL (70-99) Calcium Level 9.3 mg/dL (8.5-10.1) Magnesium Level 2.2 mg/dL (1.8-2.4) Total Bilirubin 0.2 mg/dL (0.2-1.0) Aspartate Amino Transferase (AST) 20 U/L (15-37) Alanine Aminotransferase (ALT) 18 U/L (14-59) Alkaline Phosphatase 110 U/L (46-116) Total Protein 7.0 g/dL (6.4-8.2) Albumin 3.1 g/dL (3.4-5.0) L Albumin/Globulin Ratio 0.8 (1.0-1.7) L Current Medications: Meds: Current Medications Acetaminophen (Tylenol) 650 mg PRN Q6HRS PRN PO PAIN / TEMP; Start 01/16/17 at 17:15; Status UNV Multi-Ingredient Ointment (Analgesic [place]) 1 karime PRN QID PRN TP MUSCLE PAIN; Start 01/16/17 at 17:15; Status Cancel Al Hydroxide/Mg Hydroxide (Mylanta Plus Xs) 15 ml PRN AFTMEALHC PRN PO DYSPEPSIA; Start 01/16/17 at 17:15 Magnesium Hydroxide (Milk Of Magnesia) 2,400 mg PRN QHS PRN PO CONSTIPATION; Start 01/16/17 at 17:15 Acetaminophen (Tylenol) 650 mg PRN Q6HRS PRN PO PAIN / TEMP Last administered on 01/29/17 20:30; Start 01/16/17 at 17:30 Aspirin (Lana Aspirin) 325 mg DAILY PO Last administered on 02/01/17 09:23; Start 01/17/17 at 09:00 Dicyclomine HCl (Bentyl) 10 mg TID PO Last administered on 02/01/17 19:29; Start 01/16/17 at 21:00 Fluticasone Propionate (Flonase) 1 spray DAILY NS Last administered on 09:25; Start 01/17/17 at 09:00 Guaifenesin (Robitussin) 100 mg PRN Q4HRS PRN PO COUGH; Start 01/16/17 at 17:30 Levothyroxine Sodium (Synthroid) 112 mcg DAILY07 PO Last administered on 05:43; Start 01/17/17 at 07:00 Lisinopril (Prinivil) 5 mg DAILY PO Last administered on 01/20/17 09:27; Start 01/17/17 at 09:00; Stop 01/20/17 at 15:25; Status DC Pantoprazole Sodium (Protonix) 40 mg DAILY PO Last administered on 02/01/17 09:23; Start 01/17/17 at 09:00 Polyethylene Glycol (miraLAX) 17 gm DAILY PO Last administered on 02/01/17 09 :24; Start 01/17/17 at 09:00 Artificial Tears (Artificial Tears) 1 drop QID OU Last administered on 19:30; Start 01/16/17 at 21:00 Senna/Docusate Sodium (Senna Plus) 1 tab BID PO Last administered on 19:29; Start 01/16/17 at 21:00 Sucralfate (Carafate) 1 gm BIDBFRMEAL PO Last administered on 01/19/17 06:38; Start 01/17/17 at 07:30; Stop 01/19/17 at 10:48; Status DC Non-Formulary Medication 3 drop PRN Q1HR PRN SL SECRETIONS; Start 01/16/17 at 17:30; Status UNV Non-Formulary Medication 1 drop BID OU ; Start 01/16/17 at 21:00; Status UNV Non-Formulary Medication 1 karime PRN QID PRN TP MUSCLE PAIN; Start 01/16/17 at 17 :30; Status UNV Morphine Sulfate (Morphine Oral Solution) 5 mg PRN Q4HRS PRN PO MODERATE PAIN; Start 01/16/17 at 18:00 Haloperidol (Haldol) 0.25 mg BID PO Last administered on 02/01/17 19:29; Start 01/16/17 at 21:00 Haloperidol (Haldol) 0.5 mg PRN Q6HRS PRN PO ANXIETY / AGITATION Last administered on 01/29/17 14:59; Start 01/16/17 at 17:45 Lorazepam (Ativan Intensol) 1 mg PRN Q4HRS PRN PO ANXIETY / AGITATION Last administered on 01/17/17 00:41; Start 01/16/17 at 17:45 Diazepam (Valium) 10 mg HS PO Last administered on 01/16/17 22:31; Start 01/16 at 21:00; Stop 01/17/17 at 16:24; Status DC Escitalopram Oxalate (Lexapro) 20 mg DAILY PO Last administered on 01/17/17 09 :06; Start 01/17/17 at 09:00; Stop 01/17/17 at 19:09; Status DC Multi-Ingredient Ointment (Analgesic [place]) 1 karime PRN QID PRN TP MUSCLE PAIN; Start 01/16/17 at 18:00 Diazepam (Valium) 10 mg QHS PO Last administered on 01/21/17 19:24; Start 01/17/17 at 21:00; Stop 01/22/17 at 19:25; Status DC Sertraline HCl (Zoloft) 50 mg DAILY PO Last administered on 02/01/17 09:23; Start 01/18/17 at 09:00 Buspirone HCl (Buspar) 5 mg BID92 PO Last administered on 02/01/17 14:04; Start 01/19/17 at 09:00 Potassium Chloride (Klor-Con) 20 meq DAILYBFRLUN PO Last administered on 11:45; Start 01/19/17 at 11:30 Cyanocobalamin (Vitamin B-12) 1,000 mcg DAILY IM Last administered on 08:46; Start 01/20/17 at 09:00; Stop 01/24/17 at 09:00; Status DC Cyanocobalamin (Vitamin B-12) 1,000 mcg [id number] IM ; Start 02/16/17 at 09:00 Lisinopril (Prinivil) 10 mg DAILY PO Last administered on 02/01/17 09:23; Start 01/21/17 at 09:00 Quetiapine Fumarate (SEROquel) 12.5 mg BID@0900,1400 PO Last administered on 14:04; Start 01/22/17 at 09:00; Stop 02/01/17 at 17:48; Status DC Diazepam (Valium) 7.5 mg QHS PO Last administered on 01/26/17 19:58; Start 01/22/17 at 21:00; Stop 01/26/17 at 21:00; Status DC Diazepam (Valium) 2.5 mg HS PO ; Start 01/27/17 at 21:00; Stop 01/27/17 at 21: 00; Status DC Diazepam (Valium) 5 mg QHS PO Last administered on 01/31/17 19:18; Start 03/03 at 21:00; Stop 01/31/17 at 23:01; Status DC Diazepam (Valium) 2.5 mg QHS PO Last administered on 02/01/17 19:31; Start 02/01/17 at 21:00; Stop 02/05/17 at 23:00 Diazepam (Valium) 2 mg QHS PO ; Start 02/06/17 at 21:00; Stop 02/10/17 at 23: 00 Diazepam (Valium) 1 mg QHS PO ; Start 02/11/17 at 21:00; Stop 02/16/17 at 23:00 Quetiapine Fumarate (SEROquel) 12.5 mg TID PO Last administered on 02/01/17 19:31; Start 02/01/17 at 21:00 Active Scripts Active Reported Morphine Sulfate 20 Mg/5 Ml Solution 5 Mg PO PRN Q4HRS PRN Haloperidol 0.5 Mg Tablet 0.25 Mg PO BID Haloperidol 0.5 Mg Tablet 0.5 Mg PO PRN Q6HRS PRN Lisinopril 5 Mg Tablet 5 Mg PO DAILY Lorazepam Intensol (Lorazepam) 2 Mg/1 Ml Oral.conc 1 Mg PO PRN Q4HRS PRN Atropine 0.01%-Ns Eye Drops (Atropine Sulfate in 0.9% NaCl) 10 Ml Drops 3 Drop SL PRN Q1HR PRN Biofreeze (Menthol) 118 Ml Gel..ml. 1 Karime TP PRN QID PRN Artificial Tears (Polyvinyl Alcohol) 15 Ml Drops 1 Drop OU QID Refresh Tears (Carboxymethylcellulose Sodium) 15 Ml Drops 1 Drop OU BID Aspirin 325 Mg Tablet 325 Mg PO DAILY Levothyroxine Sodium 112 Mcg Tablet 112 Mcg PO DAILY07 Lexapro (Escitalopram Oxalate) 20 Mg Tablet 20 Mg PO DAILY Guaifenesin 100 Mg/5 Ml Liquid 100 Mg PO PRN Q4HRS PRN Protonix (Pantoprazole Sodium) 40 Mg Tablet.dr 40 Mg PO DAILY Senna S Tablet (Sennosides/Docusate Sodium) 1 Each Tablet 1 Tab PO BID Tylenol (Acetaminophen) 325 Mg Tablet 650 Mg PO PRN Q6HRS PRN Dicyclomine Hcl 10 Mg Capsule 10 Mg PO TID Valium (Diazepam) 10 Mg Tablet 10 Mg PO QHS Carafate (Sucralfate) 1 Gm Tablet 1 Gm PO BID Flonase (Fluticasone Propionate) 16 Gm Mentor.susp 1 Spr NS DAILY Miralax (Polyethylene Glycol 3350) 17 Gm Powd.pack 17 Gm PO DAILY I have reviewed the current psychotropics carefully including drug interactions. Risk benefit ratio favors no change other than as noted in my dictated progress note. 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
--- NOTE | 2017-02-02 05:16 | PN ---
DATE: 01/30/2017 This is a late entry 01/30, covers elements not covered in the initial note of 01/30. SUBJECTIVE: I met with the patient in the evening of 01/30. The patient is quite disorganized, confused, was quite mean at 3:00 p.m. per nursing staff. She is walking in the hallways ad gladis. No PRNs were given. Slept 5 hours previous evening. REVIEW OF SYSTEMS: No CV, , pulmonary, eye, ENT system symptoms on review. Reliability poor. MENTAL STATUS EXAM: Oriented to herself. Insight, judgment, recent and remote memory, attention, concentration, fund of knowledge poor, consistent with her diagnosis mentioned in my initial note. PLAN: Continue psychotropics mentioned in my initial note. Consider tapering and stopping the Haldol if needed. Increase the Seroquel, but for now as the Valium is being tapered, I would like to wait for a while. MAN George CRUZ MD DR: RICHARD/doug JOB#: [id number] / [id number]
--- NOTE | 2017-02-02 05:24 | PN ---
DATE: 01/31/2017 This is a late entry 01/31, covers elements not covered in my initial note 01/31. SUBJECTIVE: The patient was staffed at a treatment team meeting in the morning, seen individually in the evening. She remains confused, somewhat anxious at times, but redirectable, but gait is better as the Valium has been reduced. REVIEW OF SYSTEMS: No CV, , pulmonary, eye, ENT system symptoms on review. Reliability poor. MENTAL STATUS EXAM: Oriented to herself. Insight, judgment, recent and remote memory, attention, concentration, fund of knowledge poor, consistent with her diagnosis mentioned in my initial note. PLAN: Reduce the Haldol from 0.25 mg b.i.d. to once a day. Seroquel is currently 12.5 b.i.d. and we will increase it to 12.5 t.i.d. to compensate for the reduced Haldol. Rest changes and current medications noted in my initial note. ROSMERY CRUZ MD DR: RICHARD/doug JOB#: [id number] / [id number]
[2017-02-02 05:48] VITALS: BP 124/73
[2017-02-02] MEDS: LEVOTHYROXINE 112 MCG TABLET PO SCH (06:04)
[2017-02-02] MEDS: SENNOSIDES/DOCUSATE 8.6/50MG TABLET. PO SCH ×2 (07:45→19:33)
[2017-02-02] MEDS: DICYCLOMINE HCL 10 MG CAPSULE PO SCH ×3 (07:45→19:33)
[2017-02-02] MEDS: SERTRALINE 50 MG TABLET. PO SCH (07:45)
[2017-02-02] MEDS: ASPIRIN 325 MG TABLET PO SCH (07:46)
[2017-02-02] MEDS: QUEtiapine 25 MG TABLET. PO SCH ×3 (07:46→19:33)
[2017-02-02] MEDS: LISINOPRIL 10 MG TABLET PO SCH (07:46)
[2017-02-02] MEDS: busPIRone 5 MG TABLET. PO SCH ×2 (07:46→14:37)
[2017-02-02] MEDS: POLYVINYL ALCOHOL 1.4% OPHTH SOLUTION 15ML BOTTLE. OU SCH ×6 (07:47→19:33)
[2017-02-02] MEDS: POLYETHYLENE GLYCOL 3350 17 GM PACKET. PO SCH ×2 (07:47→14:37)
[2017-02-02] MEDS: PANTOPRAZOLE 40 MG TABLET. PO SCH (07:47)
[2017-02-02] MEDS: FLUTICASONE 50MCG/NASAL SPRAY 16GM BOTTLE. NS SCH ×2 (07:48→09:00)
[2017-02-02] MEDS: HALOPERIDOL 0.5 MG TABLET PO SCH ×2 (07:48→19:33)
[2017-02-02] MEDS: POTASSIUM CHLORIDE 20 MEQ TABLET.ER. PO SCH (11:30)
[2017-02-02 15:58] VITALS: BP 119/79
[2017-02-02] MEDS: diazePAM 5 MG TABLET PO SCH (19:34)
--- NOTE | 2017-02-02 21:12 | PDOC ---
Exam Note: Yossi Note: Please also refer to the separate dictated note~for this date of service dictated separately.~Patient seen individually. Discussed the patient with Nursing staff reviewed the chart.~Reviewed interim history and current functioning. Reviewed vital signs,~Labs/ Radiology~and current medications noted below. Continue current treatment with the changes noted in the dictated addendum note Assessment: Vital Signs: Vital Signs Date Time Temp Pulse Resp B/P (MAP) Pulse Ox O2 Delivery O2 Flow Rate FiO2 02/02/17 15:58 97.4 101 20 119/79 (92) 95 02/01/17 16:06 Room Air I&O Intake and Output 02/02/17 07:00 Intake Total 840 ml Balance 840 ml Intake Oral 840 ml Current Medications: Meds: Current Medications Acetaminophen (Tylenol) 650 mg PRN Q6HRS PRN PO PAIN / TEMP; Start 01/16/17 at 17:15; Status UNV Multi-Ingredient Ointment (Analgesic [place]) 1 karime PRN QID PRN TP MUSCLE PAIN; Start 01/16/17 at 17:15; Status Cancel Al Hydroxide/Mg Hydroxide (Mylanta Plus Xs) 15 ml PRN AFTMEALHC PRN PO DYSPEPSIA; Start 01/16/17 at 17:15 Magnesium Hydroxide (Milk Of Magnesia) 2,400 mg PRN QHS PRN PO CONSTIPATION; Start 01/16/17 at 17:15 Acetaminophen (Tylenol) 650 mg PRN Q6HRS PRN PO PAIN / TEMP Last administered on 01/29/17 20:30; Start 01/16/17 at 17:30 Aspirin (Lana Aspirin) 325 mg DAILY PO Last administered on 02/02/17 07:46; Start 01/17/17 at 09:00 Dicyclomine HCl (Bentyl) 10 mg TID PO Last administered on 02/02/17 19:33; Start 01/16/17 at 21:00 Fluticasone Propionate (Flonase) 1 spray DAILY NS Last administered on 09:25; Start 01/17/17 at 09:00 Guaifenesin (Robitussin) 100 mg PRN Q4HRS PRN PO COUGH; Start 01/16/17 at 17:30 Levothyroxine Sodium (Synthroid) 112 mcg DAILY07 PO Last administered on 06:04; Start 01/17/17 at 07:00 Lisinopril (Prinivil) 5 mg DAILY PO Last administered on 01/20/17 09:27; Start 01/17/17 at 09:00; Stop 01/20/17 at 15:25; Status DC Pantoprazole Sodium (Protonix) 40 mg DAILY PO Last administered on 02/02/17 07:47; Start 01/17/17 at 09:00 Polyethylene Glycol (miraLAX) 17 gm DAILY PO Last administered on 02/02/17 14 :37; Start 01/17/17 at 09:00 Artificial Tears (Artificial Tears) 1 drop QID OU Last administered on 19:33; Start 01/16/17 at 21:00 Senna/Docusate Sodium (Senna Plus) 1 tab BID PO Last administered on 19:33; Start 01/16/17 at 21:00 Sucralfate (Carafate) 1 gm BIDBFRMEAL PO Last administered on 01/19/17 06:38; Start 01/17/17 at 07:30; Stop 01/19/17 at 10:48; Status DC Non-Formulary Medication 3 drop PRN Q1HR PRN SL SECRETIONS; Start 01/16/17 at 17:30; Status UNV Non-Formulary Medication 1 drop BID OU ; Start 01/16/17 at 21:00; Status UNV Non-Formulary Medication 1 karime PRN QID PRN TP MUSCLE PAIN; Start 01/16/17 at 17 :30; Status UNV Morphine Sulfate (Morphine Oral Solution) 5 mg PRN Q4HRS PRN PO MODERATE PAIN; Start 01/16/17 at 18:00 Haloperidol (Haldol) 0.25 mg BID PO Last administered on 02/02/17 19:33; Start 01/16/17 at 21:00 Haloperidol (Haldol) 0.5 mg PRN Q6HRS PRN PO ANXIETY / AGITATION Last administered on 01/29/17 14:59; Start 01/16/17 at 17:45 Lorazepam (Ativan Intensol) 1 mg PRN Q4HRS PRN PO ANXIETY / AGITATION Last administered on 01/17/17 00:41; Start 01/16/17 at 17:45 Diazepam (Valium) 10 mg HS PO Last administered on 01/16/17 22:31; Start 01/16 at 21:00; Stop 01/17/17 at 16:24; Status DC Escitalopram Oxalate (Lexapro) 20 mg DAILY PO Last administered on 01/17/17 09 :06; Start 01/17/17 at 09:00; Stop 01/17/17 at 19:09; Status DC Multi-Ingredient Ointment (Analgesic [place]) 1 karime PRN QID PRN TP MUSCLE PAIN; Start 01/16/17 at 18:00 Diazepam (Valium) 10 mg QHS PO Last administered on 01/21/17 19:24; Start 01/17/17 at 21:00; Stop 01/22/17 at 19:25; Status DC Sertraline HCl (Zoloft) 50 mg DAILY PO Last administered on 02/02/17 07:45; Start 01/18/17 at 09:00 Buspirone HCl (Buspar) 5 mg BID92 PO Last administered on 02/02/17 14:37; Start 01/19/17 at 09:00 Potassium Chloride (Klor-Con) 20 meq DAILYBFRLUN PO Last administered on 11:45; Start 01/19/17 at 11:30 Cyanocobalamin (Vitamin B-12) 1,000 mcg DAILY IM Last administered on 08:46; Start 01/20/17 at 09:00; Stop 01/24/17 at 09:00; Status DC Cyanocobalamin (Vitamin B-12) 1,000 mcg [id number] IM ; Start 02/16/17 at 09:00 Lisinopril (Prinivil) 10 mg DAILY PO Last administered on 02/02/17 07:46; Start 01/21/17 at 09:00 Quetiapine Fumarate (SEROquel) 12.5 mg BID@0900,1400 PO Last administered on 14:04; Start 01/22/17 at 09:00; Stop 02/01/17 at 17:48; Status DC Diazepam (Valium) 7.5 mg QHS PO Last administered on 01/26/17 19:58; Start 01/22/17 at 21:00; Stop 01/26/17 at 21:00; Status DC Diazepam (Valium) 2.5 mg HS PO ; Start 01/27/17 at 21:00; Stop 01/27/17 at 21: 00; Status DC Diazepam (Valium) 5 mg QHS PO Last administered on 01/31/17 19:18; Start 03/03 at 21:00; Stop 01/31/17 at 23:01; Status DC Diazepam (Valium) 2.5 mg QHS PO Last administered on 02/02/17 19:34; Start 02/01/17 at 21:00; Stop 02/05/17 at 23:00 Diazepam (Valium) 2 mg QHS PO ; Start 02/06/17 at 21:00; Stop 02/10/17 at 23: 00 Diazepam (Valium) 1 mg QHS PO ; Start 02/11/17 at 21:00; Stop 02/16/17 at 23:00 Quetiapine Fumarate (SEROquel) 12.5 mg TID PO Last administered on 02/02/17 19:33; Start 02/01/17 at 21:00 Active Scripts Active Reported Morphine Sulfate 20 Mg/5 Ml Solution 5 Mg PO PRN Q4HRS PRN Haloperidol 0.5 Mg Tablet 0.25 Mg PO BID Haloperidol 0.5 Mg Tablet 0.5 Mg PO PRN Q6HRS PRN Lisinopril 5 Mg Tablet 5 Mg PO DAILY Lorazepam Intensol (Lorazepam) 2 Mg/1 Ml Oral.conc 1 Mg PO PRN Q4HRS PRN Atropine 0.01%-Ns Eye Drops (Atropine Sulfate in 0.9% NaCl) 10 Ml Drops 3 Drop SL PRN Q1HR PRN Biofreeze (Menthol) 118 Ml Gel..ml. 1 Karime TP PRN QID PRN Artificial Tears (Polyvinyl Alcohol) 15 Ml Drops 1 Drop OU QID Refresh Tears (Carboxymethylcellulose Sodium) 15 Ml Drops 1 Drop OU BID Aspirin 325 Mg Tablet 325 Mg PO DAILY Levothyroxine Sodium 112 Mcg Tablet 112 Mcg PO DAILY07 Lexapro (Escitalopram Oxalate) 20 Mg Tablet 20 Mg PO DAILY Guaifenesin 100 Mg/5 Ml Liquid 100 Mg PO PRN Q4HRS PRN Protonix (Pantoprazole Sodium) 40 Mg Tablet.dr 40 Mg PO DAILY Senna S Tablet (Sennosides/Docusate Sodium) 1 Each Tablet 1 Tab PO BID Tylenol (Acetaminophen) 325 Mg Tablet 650 Mg PO PRN Q6HRS PRN Dicyclomine Hcl 10 Mg Capsule 10 Mg PO TID Valium (Diazepam) 10 Mg Tablet 10 Mg PO QHS Carafate (Sucralfate) 1 Gm Tablet 1 Gm PO BID Flonase (Fluticasone Propionate) 16 Gm [place].susp 1 Spr NS DAILY Miralax (Polyethylene Glycol 3350) 17 Gm Powd.pack 17 Gm PO DAILY I have reviewed the current psychotropics carefully including drug interactions. Risk benefit ratio favors no change other than as noted in my dictated progress note. 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
[2017-02-03 06:06] VITALS: BP 118/77
[2017-02-03] MEDS: LEVOTHYROXINE 112 MCG TABLET PO SCH (06:24)
[2017-02-03] MEDS: PANTOPRAZOLE 40 MG TABLET. PO SCH (08:18)
[2017-02-03] MEDS: ASPIRIN 325 MG TABLET PO SCH (08:18)
[2017-02-03] MEDS: HALOPERIDOL 0.5 MG TABLET PO SCH ×2 (08:18→19:52)
[2017-02-03] MEDS: POLYETHYLENE GLYCOL 3350 17 GM PACKET. PO SCH (08:18)
[2017-02-03] MEDS: SERTRALINE 50 MG TABLET. PO SCH (08:18)
[2017-02-03] MEDS: busPIRone 5 MG TABLET. PO SCH ×2 (08:19→13:34)
[2017-02-03] MEDS: SENNOSIDES/DOCUSATE 8.6/50MG TABLET. PO SCH ×2 (08:19→19:53)
[2017-02-03] MEDS: QUEtiapine 25 MG TABLET. PO SCH ×3 (08:19→19:53)
[2017-02-03] MEDS: DICYCLOMINE HCL 10 MG CAPSULE PO SCH ×3 (08:19→19:52)
[2017-02-03] MEDS: POLYVINYL ALCOHOL 1.4% OPHTH SOLUTION 15ML BOTTLE. OU SCH ×4 (08:20→19:54)
[2017-02-03] MEDS: LISINOPRIL 10 MG TABLET PO SCH (08:20)
[2017-02-03] MEDS: POTASSIUM CHLORIDE 20 MEQ TABLET.ER. PO SCH (08:21)
[2017-02-03] MEDS: FLUTICASONE 50MCG/NASAL SPRAY 16GM BOTTLE. NS SCH (08:21)
--- NOTE | 2017-02-03 11:36 | PN ---
DATE: 02/01/2017 PSYCHIATRIC PROGRESS NOTE This is a late entry 02/01/2017, covers elements not covered in my initial note of 02/01/2017. SUBJECTIVE: The patient resistive to medications, pushing other patients in the wheelchair, but not aggressively, otherwise more steady in her gait. REVIEW OF SYSTEMS: No CV, , pulmonary, eye, ENT system symptoms on review, quite disorganized as I met with her. MENTAL STATUS EXAM: Insight, judgment, recent and remote memory, attention, concentration, fund of knowledge poor, consistent with her diagnoses mentioned in my initial note. PLAN: No change from initial note. If aggression resurfaces we may need to increase her psychotropics. ROSMERY CRUZ MD DR: RICHARD/doug JOB#: [id number] / [id number]
--- NOTE | 2017-02-03 12:10 | PN ---
DATE: 02/02/2017 PSYCHIATRIC PROGRESS NOTE This is a late entry for 02/02/2017, covers elements not covered in my initial note 02/02/2017. Met with the patient in the evening of 02/02/2017. The patient is confused, not aggressive, wandering into other patient's rooms, delusional, believed one of the other female demented patient is her son. Gait is more steady as the Valium is being tapered. REVIEW OF SYSTEMS: No CV, , pulmonary, eye, ENT system symptoms on review. Reliability poor. MENTAL STATUS EXAM: Oriented to herself. Insight, judgment, recent and remote memory, attention, concentration, fund of knowledge poor, consistent with her diagnosis mentioned in my initial note. PLAN: Continue current psychotropics mentioned in my initial note. MAN George CRUZ MD DR: RICHARD/doug JOB#: [id number] / [id number]
[2017-02-03] MEDS ORDERED: CYAN10002 IM (14:56)
[2017-02-03] MEDS ORDERED: LISI10TA2 PO (14:58)
[2017-02-03] MEDS ORDERED: MAG355OR12 PO (15:01)
[2017-02-03] MEDS ORDERED: MAGN2400 PO (15:07)
[2017-02-03] MEDS ORDERED: POTA10TA10 PO (15:08)
[2017-02-03] MEDS ORDERED: SERT50TA PO (15:09)
[2017-02-03] MEDS ORDERED: QUET25TA5 PO (15:09)
[2017-02-03] MEDS ORDERED: BUSP5TAB PO (15:11)
[2017-02-03] MEDS ORDERED: DIAZ5TAB PO (15:13)
[2017-02-03 16:04] VITALS: BP 135/85
[2017-02-03] MEDS: diazePAM 5 MG TABLET PO SCH (19:53)
--- NOTE | 2017-02-03 20:15 | PDOC ---
Exam Note: Yossi Note: Please also refer to the separate dictated note~for this date of service dictated separately.~Patient seen individually. Discussed the patient with Nursing staff reviewed the chart.~Reviewed interim history and current functioning. Reviewed vital signs,~Labs/ Radiology~and current medications noted below. Continue current treatment with the changes noted in the dictated addendum note Assessment: Vital Signs: Vital Signs Date Time Temp Pulse Resp B/P (MAP) Pulse Ox O2 Delivery O2 Flow Rate FiO2 02/03/17 16:04 97.1 91 16 135/85 (102) 96 02/01/17 16:06 Room Air I&O Intake and Output 02/03/17 07:00 Intake Total 240 ml Balance 240 ml Intake Oral 240 ml Current Medications: Meds: Current Medications Acetaminophen (Tylenol) 650 mg PRN Q6HRS PRN PO PAIN / TEMP; Start 01/16/17 at 17:15; Status UNV Multi-Ingredient Ointment (Analgesic [place]) 1 karime PRN QID PRN TP MUSCLE PAIN; Start 01/16/17 at 17:15; Status Cancel Al Hydroxide/Mg Hydroxide (Mylanta Plus Xs) 15 ml PRN AFTMEALHC PRN PO DYSPEPSIA; Start 01/16/17 at 17:15 Magnesium Hydroxide (Milk Of Magnesia) 2,400 mg PRN QHS PRN PO CONSTIPATION; Start 01/16/17 at 17:15 Acetaminophen (Tylenol) 650 mg PRN Q6HRS PRN PO PAIN / TEMP Last administered on 01/29/17 20:30; Start 01/16/17 at 17:30 Aspirin (Lana Aspirin) 325 mg DAILY PO Last administered on 02/03/17 08:18; Start 01/17/17 at 09:00 Dicyclomine HCl (Bentyl) 10 mg TID PO Last administered on 02/03/17 19:52; Start 01/16/17 at 21:00 Fluticasone Propionate (Flonase) 1 spray DAILY NS Last administered on 09:25; Start 01/17/17 at 09:00 Guaifenesin (Robitussin) 100 mg PRN Q4HRS PRN PO COUGH; Start 01/16/17 at 17:30 Levothyroxine Sodium (Synthroid) 112 mcg DAILY07 PO Last administered on 06:24; Start 01/17/17 at 07:00 Lisinopril (Prinivil) 5 mg DAILY PO Last administered on 01/20/17 09:27; Start 01/17/17 at 09:00; Stop 01/20/17 at 15:25; Status DC Pantoprazole Sodium (Protonix) 40 mg DAILY PO Last administered on 02/03/17 08:18; Start 01/17/17 at 09:00 Polyethylene Glycol (miraLAX) 17 gm DAILY PO Last administered on 02/03/17 08 :18; Start 01/17/17 at 09:00 Artificial Tears (Artificial Tears) 1 drop QID OU Last administered on 19:54; Start 01/16/17 at 21:00 Senna/Docusate Sodium (Senna Plus) 1 tab BID PO Last administered on 19:53; Start 01/16/17 at 21:00 Sucralfate (Carafate) 1 gm BIDBFRMEAL PO Last administered on 01/19/17 06:38; Start 01/17/17 at 07:30; Stop 01/19/17 at 10:48; Status DC Non-Formulary Medication 3 drop PRN Q1HR PRN SL SECRETIONS; Start 01/16/17 at 17:30; Status UNV Non-Formulary Medication 1 drop BID OU ; Start 01/16/17 at 21:00; Status UNV Non-Formulary Medication 1 karime PRN QID PRN TP MUSCLE PAIN; Start 01/16/17 at 17 :30; Status UNV Morphine Sulfate (Morphine Oral Solution) 5 mg PRN Q4HRS PRN PO MODERATE PAIN; Start 01/16/17 at 18:00 Haloperidol (Haldol) 0.25 mg BID PO Last administered on 02/03/17 19:52; Start 01/16/17 at 21:00 Haloperidol (Haldol) 0.5 mg PRN Q6HRS PRN PO ANXIETY / AGITATION Last administered on 01/29/17 14:59; Start 01/16/17 at 17:45 Lorazepam (Ativan Intensol) 1 mg PRN Q4HRS PRN PO ANXIETY / AGITATION Last administered on 01/17/17 00:41; Start 01/16/17 at 17:45 Diazepam (Valium) 10 mg HS PO Last administered on 01/16/17 22:31; Start 01/16 at 21:00; Stop 01/17/17 at 16:24; Status DC Escitalopram Oxalate (Lexapro) 20 mg DAILY PO Last administered on 01/17/17 09 :06; Start 01/17/17 at 09:00; Stop 01/17/17 at 19:09; Status DC Multi-Ingredient Ointment (Analgesic [place]) 1 karime PRN QID PRN TP MUSCLE PAIN; Start 01/16/17 at 18:00 Diazepam (Valium) 10 mg QHS PO Last administered on 01/21/17 19:24; Start 01/17/17 at 21:00; Stop 01/22/17 at 19:25; Status DC Sertraline HCl (Zoloft) 50 mg DAILY PO Last administered on 02/03/17 08:18; Start 01/18/17 at 09:00 Buspirone HCl (Buspar) 5 mg BID92 PO Last administered on 02/03/17 13:34; Start 01/19/17 at 09:00 Potassium Chloride (Klor-Con) 20 meq DAILYBFRLUN PO Last administered on 08:21; Start 01/19/17 at 11:30 Cyanocobalamin (Vitamin B-12) 1,000 mcg DAILY IM Last administered on 08:46; Start 01/20/17 at 09:00; Stop 01/24/17 at 09:00; Status DC Cyanocobalamin (Vitamin B-12) 1,000 mcg [id number] IM ; Start 02/16/17 at 09:00 Lisinopril (Prinivil) 10 mg DAILY PO Last administered on 02/03/17 08:20; Start 01/21/17 at 09:00 Quetiapine Fumarate (SEROquel) 12.5 mg BID@0900,1400 PO Last administered on 14:04; Start 01/22/17 at 09:00; Stop 02/01/17 at 17:48; Status DC Diazepam (Valium) 7.5 mg QHS PO Last administered on 01/26/17 19:58; Start 01/22/17 at 21:00; Stop 01/26/17 at 21:00; Status DC Diazepam (Valium) 2.5 mg HS PO ; Start 01/27/17 at 21:00; Stop 01/27/17 at 21: 00; Status DC Diazepam (Valium) 5 mg QHS PO Last administered on 01/31/17 19:18; Start 03/03 at 21:00; Stop 01/31/17 at 23:01; Status DC Diazepam (Valium) 2.5 mg QHS PO Last administered on 02/03/17 19:53; Start 02/01/17 at 21:00; Stop 02/05/17 at 23:00 Diazepam (Valium) 2 mg QHS PO ; Start 02/06/17 at 21:00; Stop 02/10/17 at 23: 00 Diazepam (Valium) 1 mg QHS PO ; Start 02/11/17 at 21:00; Stop 02/16/17 at 23:00 Quetiapine Fumarate (SEROquel) 12.5 mg TID PO Last administered on 02/03/17 19:53; Start 02/01/17 at 21:00 Active Scripts Active Reported Valium (Diazepam) 5 Mg Tablet 2.5 Mg PO QHS Buspirone Hcl 5 Mg Tablet 5 Mg PO BID92 Zoloft (Sertraline Hcl) 50 Mg Tablet 50 Mg PO DAILY Seroquel (Quetiapine Fumarate) 25 Mg Tablet 12.5 Mg PO TID Potassium Chloride 10 Meq Tablet.er 10 Meq PO DAILYWLUN Milk Of Magnesia (Magnesium Hydroxide) 2,400 Mg/10 Ml Oral.susp 2,400 Mg PO PRN QHS PRN Maalox Maximum Strength Susp (Mag Hydrox/Al Hydrox/Simeth) 355 Ml Oral.susp 15 Ml PO PRN AFTMEALHC PRN Lisinopril 10 Mg Tablet 10 Mg PO DAILY Cyanocobalamin Injection (Cyanocobalamin (Vitamin B-12)) 1,000 Mcg/1 Ml Vial 1, 000 Mcg IJ Morphine Sulfate 20 Mg/5 Ml Solution 5 Mg PO PRN Q4HRS PRN Haloperidol 0.5 Mg Tablet 0.25 Mg PO BID Haloperidol 0.5 Mg Tablet 0.5 Mg PO PRN Q6HRS PRN Lisinopril 5 Mg Tablet 5 Mg PO DAILY Lorazepam Intensol (Lorazepam) 2 Mg/1 Ml Oral.conc 1 Mg PO PRN Q4HRS PRN Atropine 0.01%-Ns Eye Drops (Atropine Sulfate in 0.9% NaCl) 10 Ml Drops 3 Drop SL PRN Q1HR PRN Biofreeze (Menthol) 118 Ml Gel..ml. 1 Kar[place] TP PRN QID PRN Artificial Tears (Polyvinyl Alcohol) 15 Ml Drops 1 Drop OU QID Refresh Tears (Carboxymethylcellulose Sodium) 15 Ml Drops 1 Drop OU BID Aspirin 325 Mg Tablet 325 Mg PO DAILY Levothyroxine Sodium 112 Mcg Tablet 112 Mcg PO DAILY07 Lexapro (Escitalopram Oxalate) 20 Mg Tablet 20 Mg PO DAILY Guaifenesin 100 Mg/5 Ml Liquid 100 Mg PO PRN Q4HRS PRN Protonix (Pantoprazole Sodium) 40 Mg Tablet.dr 40 Mg PO DAILY Senna S Tablet (Sennosides/Docusate Sodium) 1 Each Tablet 1 Tab PO BID Tylenol (Acetaminophen) 325 Mg Tablet 650 Mg PO PRN Q6HRS PRN Dicyclomine Hcl 10 Mg Capsule 10 Mg PO TID Valium (Diazepam) 10 Mg Tablet 10 Mg PO QHS Carafate (Sucralfate) 1 Gm Tablet 1 Gm PO BID Flonase (Fluticasone Propionate) 16 Gm [place].susp 1 Spr NS DAILY Miralax (Polyethylene Glycol 3350) 17 Gm Powd.pack 17 Gm PO DAILY I have reviewed the current psychotropics carefully including drug interactions. Risk benefit ratio favors no change other than as noted in my dictated progress note. 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
[2017-02-03] MEDS: LORazepam INTENSOL 2 MG/ML BOTTLE PO PRN (21:13)
[2017-02-04] MEDS ORDERED: DIAZ2TAB PO ×2 (02:34→02:35)
[2017-02-04 05:56] VITALS: BP 138/87
[2017-02-04] MEDS: LEVOTHYROXINE 112 MCG TABLET PO SCH (06:06)
[2017-02-04] MEDS: SENNOSIDES/DOCUSATE 8.6/50MG TABLET. PO SCH ×2 (08:05→19:36)
[2017-02-04] MEDS: PANTOPRAZOLE 40 MG TABLET. PO SCH (08:06)
[2017-02-04] MEDS: DICYCLOMINE HCL 10 MG CAPSULE PO SCH ×3 (08:06→19:35)
[2017-02-04] MEDS: HALOPERIDOL 0.5 MG TABLET PO SCH ×2 (08:06→19:36)
[2017-02-04] MEDS: SERTRALINE 50 MG TABLET. PO SCH (08:06)
[2017-02-04] MEDS: busPIRone 5 MG TABLET. PO SCH ×2 (08:07→14:00)
[2017-02-04] MEDS: LISINOPRIL 10 MG TABLET PO SCH (08:07)
[2017-02-04] MEDS: QUEtiapine 25 MG TABLET. PO SCH ×5 (08:07→19:39)
[2017-02-04] MEDS: POLYETHYLENE GLYCOL 3350 17 GM PACKET. PO SCH (08:07)
[2017-02-04] MEDS: ASPIRIN 325 MG TABLET PO SCH (08:07)
[2017-02-04] MEDS: POLYVINYL ALCOHOL 1.4% OPHTH SOLUTION 15ML BOTTLE. OU SCH ×4 (08:08→20:54)
[2017-02-04] MEDS: FLUTICASONE 50MCG/NASAL SPRAY 16GM BOTTLE. NS SCH (08:08)
[2017-02-04] MEDS: POTASSIUM CHLORIDE 20 MEQ TABLET.ER. PO SCH (11:54)
[2017-02-04 16:14] VITALS: BP 103/66
[2017-02-04] MEDS: diazePAM 5 MG TABLET PO SCH (19:39)
--- NOTE | 2017-02-04 19:54 | PDOC ---
Exam Note: Yossi Note: Please also refer to the separate dictated note~for this date of service dictated separately.~Patient seen individually. Discussed the patient with Nursing staff reviewed the chart.~Reviewed interim history and current functioning. Reviewed vital signs,~Labs/ Radiology~and current medications noted below. Continue current treatment with the changes noted in the dictated addendum note Assessment: Vital Signs: Vital Signs Date Time Temp Pulse Resp B/P (MAP) Pulse Ox O2 Delivery O2 Flow Rate FiO2 02/04/17 16:14 97.6 75 16 103/66 (78) 92 02/01/17 16:06 Room Air I&O Intake and Output 02/04/17 07:00 Intake Total 600 ml Balance 600 ml Intake Oral 600 ml Current Medications: Meds: Current Medications Acetaminophen (Tylenol) 650 mg PRN Q6HRS PRN PO PAIN / TEMP; Start 01/16/17 at 17:15; Status UNV Multi-Ingredient Ointment (Analgesic [place]) 1 karime PRN QID PRN TP MUSCLE PAIN; Start 01/16/17 at 17:15; Status Cancel Al Hydroxide/Mg Hydroxide (Mylanta Plus Xs) 15 ml PRN AFTMEALHC PRN PO DYSPEPSIA; Start 01/16/17 at 17:15 Magnesium Hydroxide (Milk Of Magnesia) 2,400 mg PRN QHS PRN PO CONSTIPATION; Start 01/16/17 at 17:15 Acetaminophen (Tylenol) 650 mg PRN Q6HRS PRN PO PAIN / TEMP Last administered on 01/29/17 20:30; Start 01/16/17 at 17:30 Aspirin (Lana Aspirin) 325 mg DAILY PO Last administered on 02/04/17 08:07; Start 01/17/17 at 09:00 Dicyclomine HCl (Bentyl) 10 mg TID PO Last administered on 02/04/17 19:35; Start 01/16/17 at 21:00 Fluticasone Propionate (Flonase) 1 spray DAILY NS Last administered on 08:08; Start 01/17/17 at 09:00 Guaifenesin (Robitussin) 100 mg PRN Q4HRS PRN PO COUGH; Start 01/16/17 at 17:30 Levothyroxine Sodium (Synthroid) 112 mcg DAILY07 PO Last administered on 06:06; Start 01/17/17 at 07:00 Lisinopril (Prinivil) 5 mg DAILY PO Last administered on 01/20/17 09:27; Start 01/17/17 at 09:00; Stop 01/20/17 at 15:25; Status DC Pantoprazole Sodium (Protonix) 40 mg DAILY PO Last administered on 02/04/17 08:06; Start 01/17/17 at 09:00 Polyethylene Glycol (miraLAX) 17 gm DAILY PO Last administered on 02/04/17 08 :07; Start 01/17/17 at 09:00 Artificial Tears (Artificial Tears) 1 drop QID OU Last administered on 17:14; Start 01/16/17 at 21:00 Senna/Docusate Sodium (Senna Plus) 1 tab BID PO Last administered on 19:36; Start 01/16/17 at 21:00 Sucralfate (Carafate) 1 gm BIDBFRMEAL PO Last administered on 01/19/17 06:38; Start 01/17/17 at 07:30; Stop 01/19/17 at 10:48; Status DC Non-Formulary Medication 3 drop PRN Q1HR PRN SL SECRETIONS; Start 01/16/17 at 17:30; Status UNV Non-Formulary Medication 1 drop BID OU ; Start 01/16/17 at 21:00; Status UNV Non-Formulary Medication 1 karime PRN QID PRN TP MUSCLE PAIN; Start 01/16/17 at 17 :30; Status UNV Morphine Sulfate (Morphine Oral Solution) 5 mg PRN Q4HRS PRN PO MODERATE PAIN; Start 01/16/17 at 18:00 Haloperidol (Haldol) 0.25 mg BID PO Last administered on 02/04/17 19:36; Start 01/16/17 at 21:00 Haloperidol (Haldol) 0.5 mg PRN Q6HRS PRN PO ANXIETY / AGITATION Last administered on 01/29/17 14:59; Start 01/16/17 at 17:45 Lorazepam (Ativan Intensol) 1 mg PRN Q4HRS PRN PO ANXIETY / AGITATION Last administered on 02/03/17 21:13; Start 01/16/17 at 17:45 Diazepam (Valium) 10 mg HS PO Last administered on 01/16/17 22:31; Start 01/16 at 21:00; Stop 01/17/17 at 16:24; Status DC Escitalopram Oxalate (Lexapro) 20 mg DAILY PO Last administered on 01/17/17 09 :06; Start 01/17/17 at 09:00; Stop 01/17/17 at 19:09; Status DC Multi-Ingredient Ointment (Analgesic [place]) 1 karime PRN QID PRN TP MUSCLE PAIN; Start 01/16/17 at 18:00 Diazepam (Valium) 10 mg QHS PO Last administered on 01/21/17 19:24; Start 01/17/17 at 21:00; Stop 01/22/17 at 19:25; Status DC Sertraline HCl (Zoloft) 50 mg DAILY PO Last administered on 02/04/17 08:06; Start 01/18/17 at 09:00 Buspirone HCl (Buspar) 5 mg BID92 PO Last administered on 02/04/17 14:00; Start 01/19/17 at 09:00 Potassium Chloride (Klor-Con) 20 meq DAILYBFRLUN PO Last administered on 11:54; Start 01/19/17 at 11:30 Cyanocobalamin (Vitamin B-12) 1,000 mcg DAILY IM Last administered on 08:46; Start 01/20/17 at 09:00; Stop 01/24/17 at 09:00; Status DC Cyanocobalamin (Vitamin B-12) 1,000 mcg [id number] IM ; Start 02/16/17 at 09:00 Lisinopril (Prinivil) 10 mg DAILY PO Last administered on 02/04/17 08:07; Start 01/21/17 at 09:00 Quetiapine Fumarate (SEROquel) 12.5 mg BID@0900,1400 PO Last administered on 14:04; Start 01/22/17 at 09:00; Stop 02/01/17 at 17:48; Status DC Diazepam (Valium) 7.5 mg QHS PO Last administered on 01/26/17 19:58; Start 01/22/17 at 21:00; Stop 01/26/17 at 21:00; Status DC Diazepam (Valium) 2.5 mg HS PO ; Start 01/27/17 at 21:00; Stop 01/27/17 at 21: 00; Status DC Diazepam (Valium) 5 mg QHS PO Last administered on 01/31/17 19:18; Start 03/03 at 21:00; Stop 01/31/17 at 23:01; Status DC Diazepam (Valium) 2.5 mg QHS PO Last administered on 02/04/17 19:39; Start 02/01/17 at 21:00; Stop 02/05/17 at 23:00 Diazepam (Valium) 2 mg QHS PO ; Start 02/06/17 at 21:00; Stop 02/10/17 at 23: 00 Diazepam (Valium) 1 mg QHS PO ; Start 02/11/17 at 21:00; Stop 02/16/17 at 23:00 Quetiapine Fumarate (SEROquel) 12.5 mg TID PO Last administered on 02/04/17 19:36; Start 02/01/17 at 21:00; Stop 02/04/17 at 22:30 Quetiapine Fumarate (SEROquel) 12.5 mg QID PO Last administered on 02/04/17 19:39; Start 02/04/17 at 17:00 Active Scripts Active Reported Valium (Diazepam) 2 Mg Tablet 1 Mg PO QHS Valium (Diazepam) 2 Mg Tablet 2 Mg PO QHS Valium (Diazepam) 5 Mg Tablet 2.5 Mg PO QHS Buspirone Hcl 5 Mg Tablet 5 Mg PO BID92 Zoloft (Sertraline Hcl) 50 Mg Tablet 50 Mg PO DAILY Seroquel (Quetiapine Fumarate) 25 Mg Tablet 12.5 Mg PO TID Potassium Chloride 10 Meq Tablet.er 10 Meq PO DAILYWLUN Milk Of Magnesia (Magnesium Hydroxide) 2,400 Mg/10 Ml Oral.susp 2,400 Mg PO PRN QHS PRN Maalox Maximum Strength Susp (Mag Hydrox/Al Hydrox/Simeth) 355 Ml Oral.susp 15 Ml PO PRN AFTMEALHC PRN Lisinopril 10 Mg Tablet 10 Mg PO DAILY Cyanocobalamin Injection (Cyanocobalamin (Vitamin B-12)) 1,000 Mcg/1 Ml Vial 1, 000 Mcg IJ Morphine Sulfate 20 Mg/5 Ml Solution 5 Mg PO PRN Q4HRS PRN Haloperidol 0.5 Mg Tablet 0.25 Mg PO BID Haloperidol 0.5 Mg Tablet 0.5 Mg PO PRN Q6HRS PRN Lisinopril 5 Mg Tablet 5 Mg PO DAILY Lorazepam Intensol (Lorazepam) 2 Mg/1 Ml Oral.conc 1 Mg PO PRN Q4HRS PRN Atropine 0.01%-Ns Eye Drops (Atropine Sulfate in 0.9% NaCl) 10 Ml Drops 3 Drop SL PRN Q1HR PRN Biofreeze (Menthol) 118 Ml Gel..ml. 1 Karime TP PRN QID PRN Artificial Tears (Polyvinyl Alcohol) 15 Ml Drops 1 Drop OU QID Refresh Tears (Carboxymethylcellulose Sodium) 15 Ml Drops 1 Drop OU BID Aspirin 325 Mg Tablet 325 Mg PO DAILY Levothyroxine Sodium 112 Mcg Tablet 112 Mcg PO DAILY07 Lexapro (Escitalopram Oxalate) 20 Mg Tablet 20 Mg PO DAILY Guaifenesin 100 Mg/5 Ml Liquid 100 Mg PO PRN Q4HRS PRN Protonix (Pantoprazole Sodium) 40 Mg Tablet.dr 40 Mg PO DAILY Senna S Tablet (Sennosides/Docusate Sodium) 1 Each Tablet 1 Tab PO BID Tylenol (Acetaminophen) 325 Mg Tablet 650 Mg PO PRN Q6HRS PRN Dicyclomine Hcl 10 Mg Capsule 10 Mg PO TID Valium (Diazepam) 10 Mg Tablet 10 Mg PO QHS Carafate (Sucralfate) 1 Gm Tablet 1 Gm PO BID Flonase (Fluticasone Propionate) 16 Gm [place].susp 1 Spr NS DAILY Miralax (Polyethylene Glycol 3350) 17 Gm Powd.pack 17 Gm PO DAILY I have reviewed the current psychotropics carefully including drug interactions. Risk benefit ratio favors no change other than as noted in my dictated progress note. 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
--- NOTE | 2017-02-04 23:33 | PN ---
DATE: 02/03/2017 This late entry 02/03/2017 covers elements not covered in my initial note 02/03/2017. SUBJECTIVE: I met with the patient in the evening of 02/03/2017. The patient remains confused, intermittently anxious, restless, agitated at times, resistive to medications. She was yelling at another demented patient and some of this has worsened as we have tapered the Valium. Nevertheless, is substituted with Seroquel, we may need to adjust this. REVIEW OF SYSTEMS: No CV, , pulmonary, eye, ENT system symptoms on review. Reliability poor. MENTAL STATUS EXAM: Oriented to herself. Insight, judgment, recent and remote memory, attention, concentration, fund of knowledge poor, consistent with her diagnosis mentioned in my initial note. PLAN: No change from a psychiatric standpoint from the initial note. Taper and stop the Valium. We may need to increase Seroquel. MAN George CRUZ MD DR: RICHARD/doug JOB#: [id number] / [id number]
--- NOTE | 2017-02-04 23:47 | PN ---
DATE: 02/04/2017 PSYCHIATRIC PROGRESS NOTE This note covers elements not covered in my initial note 02/04/2017. SUBJECTIVE: I was called by the nursing staff around 6 am about the patient's irritability, mood lability, bit cranky, and intermittently agitated. Much of this seems to be worse as we have tapered the Valium, but Seroquel seems to be helping with the mood lability. REVIEW OF SYSTEMS: No CV, , pulmonary, eye, ENT system symptoms on review. Reliability poor. MENTAL STATUS EXAM: Oriented to herself. Insight, judgment, recent and remote memory, attention, concentration, fund of knowledge poor, consistent with her diagnosis mentioned in my initial note. PLAN: Increase Seroquel from 12.5 mg t.i.d. to 12.5 mg 4 times a day. Rest psychotropics unchanged from initial note. We may need to taper the Haldol, but given her ongoing mood lability, I would like to wait before doing this. Rest unchanged from my initial note. MAN George CRUZ MD DR: RICHARD/doug JOB#: [id number] / [id number]
[2017-02-05 05:59] VITALS: BP 132/75
[2017-02-05] MEDS: LEVOTHYROXINE 112 MCG TABLET PO SCH (06:19)
[2017-02-05] MEDS: FLUTICASONE 50MCG/NASAL SPRAY 16GM BOTTLE. NS SCH ×2 (09:00→09:26)
[2017-02-05] MEDS: POLYVINYL ALCOHOL 1.4% OPHTH SOLUTION 15ML BOTTLE. OU SCH ×4 (09:00→17:00)
[2017-02-05] MEDS: SERTRALINE 50 MG TABLET. PO SCH (09:26)
[2017-02-05] MEDS: DICYCLOMINE HCL 10 MG CAPSULE PO SCH ×3 (09:26→20:35)
[2017-02-05] MEDS: ASPIRIN 325 MG TABLET PO SCH (09:26)
[2017-02-05] MEDS: PANTOPRAZOLE 40 MG TABLET. PO SCH (09:26)
[2017-02-05] MEDS: SENNOSIDES/DOCUSATE 8.6/50MG TABLET. PO SCH ×2 (09:26→20:37)
[2017-02-05] MEDS: HALOPERIDOL 0.5 MG TABLET PO SCH ×2 (09:27→20:35)
[2017-02-05] MEDS: POLYETHYLENE GLYCOL 3350 17 GM PACKET. PO SCH (09:27)
[2017-02-05] MEDS: LISINOPRIL 10 MG TABLET PO SCH (09:27)
[2017-02-05] MEDS: QUEtiapine 25 MG TABLET. PO SCH ×4 (09:28→20:41)
[2017-02-05] MEDS: busPIRone 5 MG TABLET. PO SCH ×2 (09:28→13:37)
[2017-02-05] MEDS: POTASSIUM CHLORIDE 20 MEQ TABLET.ER. PO SCH (12:04)
[2017-02-05 16:12] VITALS: BP 88/66
[2017-02-05] MEDS ORDERED: POLYVINYL ALCOHOL 1.4% OPHTH SOLUTION 15ML BOTTLE. OU PRN (18:15)
[2017-02-05] MEDS ORDERED: FLUTICASONE 50MCG/NASAL SPRAY 16GM BOTTLE. NS PRN (18:15)
--- NOTE | 2017-02-05 20:28 | DS ---
DATE OF DISCHARGE: 02/05/2017 FINAL DIAGNOSES: AXIS I: Major neurocognitive disorder, Alzheimer's, vascular with depression, delusions, and behavioral disturbances. AXIS II: None. AXIS III: Hypertension, atrial fibrillation, congestive heart failure, hypothyroidism, hyperlipidemia, irritable bowel syndrome, macular degeneration, history of falls, and migraine headaches. REASON FOR ADMISSION: This 81-year-old female was admitted from [facility] with a history of increased aggression, physical towards the staff including kicking, throwing things at peers, and also having hallucinations, mostly visual seeing children. HISTORY OF PRESENT ILLNESS: The patient has been a resident at [facility] and has been under the care of Dr. Leobardo Ramirez. Staff was unable to change her behavior and also she is increasingly confused, increased agitation, being combative, threatening towards staff, and also acting upon her visual hallucinations. The patient spent brief time in the Emergency Room at [facility] because of hypokalemia, stayed overnight and was sent to senior behavioral unit. The patient also has a history of depression with psychotic features, but lately she has been increasingly confused and recently she had an EEG done, reports consistent with encephalopathy. The patient also not sleeping well, decreased appetite. The patient apparently had one hospitalization in [address] [facility], at that time showed diagnosis of depressive disorder, psychotic features, and also cognitive disorder, unspecified. HOSPITAL COURSE: The patient had a physical exam, routine lab work including CBC, chem profile, urinalysis, which were all within normal range except for hemoglobin of 11.2. The patient's alkaline phosphatase was 132 on admission that had dropped to 110 a week later. The patient's vitamin B12 was 242. The patient also was nonreactive to RPR titer ____. The patient was continued on her medications including Tylenol 650 mg q.6 hours p.r.n. for pain, aspirin 325 mg daily, BuSpar 5 mg b.i.d., B12 at 1000 mcg IM q.28 days, ____ 2.5 mg at night for about 4 days and then discontinued. The patient was also on Bentyl 10 mg t.i.d. She was also on haloperidol 0.5 mg p.r.n. for anxiety. She was also on Haldol 0.25 mg b.i.d., levothyroxine 112 mcg daily, lisinopril 10 mg daily. She was also on Lorazepam Intensol 1 mg p.o. p.r.n. q.4 hours. The patient also was on morphine sulfate oral solution 5 mg q.6 hours p.r.n. for pain, Protonix 40 mg daily, potassium chloride 20 mEq p.o. daily. The patient was on Seroquel 12.5 mg t.i.d. discontinued prior to discharge. The patient was also on Zoloft 50 mg daily. The patient also continued on Seroquel 12.5 mg 4 times daily. The patient did exhibit problems during the stay here, increasing mood swings, emotional lability, episodes of agitation, and apparently she did not respond well to Valium, but responded to Seroquel. The patient was able to walk, did not have any fall. The patient is also difficult to redirect. She is also incontinent of bowels and bladder. MENTAL STATUS EXAMINATION: The patient was withdrawn, irritable, martínez, somewhat indifferent, also increased psychomotor activity, and emotional lability. Speech is monotone, decreased rate and rhythm. Her affect and mood show fluctuating mood, irritability, increased confusion, significant cognitive deficits. The patient is also not able to participate in the testing. Judgment is impaired. Insight limited. AFTERCARE PLAN: The patient will be discharged or return to [facility]. The patient will continue on the medications listed above. The patient currently has very small doses of 2 antipsychotic drugs, Haldol, Seroquel and the recommendation is to continue on these combinations for the time being and consider increasing the Seroquel and gradually decreasing Haldol and discontinue Haldol. LEBRON MENESES MD DR: DAPHNE/doug JOB#: [id number] / [id number]
[2017-02-05] MEDS: diazePAM 5 MG TABLET PO SCH (20:36)
[2017-02-05] MEDS: ACETAMINOPHEN 325 MG TABLET PO PRN (21:53)
[2017-02-05] MEDS: HALOPERIDOL 0.5 MG TABLET PO PRN (21:58)
[2017-02-06] MEDS ORDERED: POTA20TA4 PO (00:39)
[2017-02-06 05:56] VITALS: BP 100/60
[2017-02-06] MEDS: LEVOTHYROXINE 112 MCG TABLET PO SCH (06:11)
[2017-02-06] MEDS: POLYETHYLENE GLYCOL 3350 17 GM PACKET. PO SCH (09:00)
[2017-02-06] MEDS: SENNOSIDES/DOCUSATE 8.6/50MG TABLET. PO SCH (09:23)
[2017-02-06 09:24] VITALS: BP 100/60
[2017-02-06] MEDS: SERTRALINE 50 MG TABLET. PO SCH (09:24)
[2017-02-06] MEDS: ASPIRIN 325 MG TABLET PO SCH (09:24)
[2017-02-06] MEDS: HALOPERIDOL 0.5 MG TABLET PO SCH (09:24)
[2017-02-06] MEDS: busPIRone 5 MG TABLET. PO SCH (09:24)
[2017-02-06] MEDS: LISINOPRIL 10 MG TABLET PO SCH (09:24)
[2017-02-06] MEDS: PANTOPRAZOLE 40 MG TABLET. PO SCH (09:25)
[2017-02-06] MEDS: DICYCLOMINE HCL 10 MG CAPSULE PO SCH (09:25)
[2017-02-06] MEDS: QUEtiapine 25 MG TABLET. PO SCH (09:25)
--- NOTE | 2017-02-06 09:45 | PN ---
DATE: 02/05/2017 SUBJECTIVE: The patient was seen today, met with the staff, chart reviewed. Staff reports increased behavior problems, difficult to redirect. The patient also needing assistance with ADLs. She is also incontinent of bladder and bowels. OBSERVATION: VITAL SIGNS: Temperature 98.2, blood pressure 132/75, pulse 62, respirations 16, O2 sat 92%. Slept about 7 hours last night. The patient did show slight improvement. She continues to show significant cognitive deficits. The patient did not have any side effects to the medications. The patient was given both Seroquel and Haldol in small doses and responded fairly well, at least decrease the agitation, some improvement with her behavior. The patient was tried on Valium. Apparently, she had some reaction to it. Apparently, behavior has gotten worse. The patient is planned for discharge tomorrow to return to [facility]. The patient's condition improved. The patient did not have any falls. FINAL DIAGNOSES: AXIS I: Major neurocognitive disorder, Alzheimer's, vascular with depression and delusions. PLAN: At the time of discharge was medically stable. LEBRON MENESES MD DR: DAPHNE/doug JOB#: [id number] / [id number]
[2017-02-06] MEDS ORDERED: diazePAM 2 MG TABLET PO SCH (21:00)
[2017-02-11] MEDS ORDERED: diazePAM 2 MG TABLET PO SCH (21:00)
[2017-02-16] MEDS ORDERED: CYANOCOBALAMIN (VITAMIN B-12) 1,000 MCG/ML VIAL IM SCH (09:00)
== END 2017-02-06 10:40 | DRG 884 ==
LOC: GEROPSY 17:04
PROVIDERS: ADMIT Psychiatry & Neurology Psychiatry; ATTEND Psychiatry & Neurology Psychiatry
DX: F01.51 Vascular dementia, unspecified severity, with behavioral disturbance (principal); F32.3 Major depressive disorder, single episode, severe with psychotic features; G30.9 Alzheimer's disease, unspecified; I48.91 Unspecified atrial fibrillation; I50.9 Heart failure, unspecified; I11.0 Hypertensive heart disease with heart failure; F02.81 Dementia in other diseases classified elsewhere, unspecified severity, with behavioral disturbance; G43.909 Migraine, unspecified, not intractable, without status migrainosus; E03.9 Hypothyroidism, unspecified; E55.9 Vitamin D deficiency, unspecified; E78.5 Hyperlipidemia, unspecified; E87.6 Hypokalemia; F09 Unspecified mental disorder due to known physiological condition; F32.9 Major depressive disorder, single episode, unspecified; F41.9 Anxiety disorder, unspecified; F63.9 Impulse disorder, unspecified; H35.30 Unspecified macular degeneration; K58.9 Irritable bowel syndrome, unspecified; R29.6 Repeated falls; Z66 Do not resuscitate
CPT/HCPCS: 36415; 80053; 80061; 82306; 82607; 83036; 83540; 83550; 83735; 84436; 84443; 84480; 85025; 86592; 86593; 93005; J3420; 97110; 97116; 97530; 97535